=== PATIENT | female | born 1950 | race Caucasian/White ===

== ENCOUNTER 2016-05-29 12:03 | Inpatient (IN) | payer MEDICARE, MEDICAID ==
[~2016-05-29] VITALS: Ht 170.2 cm; Wt 55.8 kg
[~2016-05-29 12:03] MED LIST: ASPIR 8181 MG ORAL; ATORVASTATIN CA40 MG ORAL; BRIMONIDINE TART5 ML BOTH EYES; LAMICTAL25 MG ORAL; OLANZAPINE5 MG ORAL; RENVELA0.8 GM ORAL; RISPERDAL0.5 MG ORAL; RISPERDAL1 MG PO; STOOL SOFTENER100 MG PO; SYNTHROID50 MCG ORAL; VIGAMOX1 DROP LEFT EYE
[2016-05-29 12:55] VITALS: BP 98/53
--- NOTE | 2016-05-29 13:03 | Emergency Room Report ---
History of Present Illness General Chief Complaint: Abnormal Labs Source: Patient (MELA MELGAR) Present Illness HPI The patient is a 66-year-old female with a history of diabetes, end-stage renal disease on dialysis presenting for fatigue which began one month prior and has been getting worse. The patient also admits to a history of anemia and states she does not take any medications for this.The patient also admits to a dark stool which was passed 2 days prior and has since had normal bowel movements. The patient states that her dialysis schedule is Wednesday. Patient last had dialysis 2 days prior to completion and was scheduled for today but states that access did not pick her up.The patient denies any pain at all including chest pain, abdominal pain, myalgia, shortness of breath, numbness or tingling, headache, blurred vision, dizziness, nausea, vomiting, fever, chills (MELA MELGAR.Alexis) Allergies: Coded Allergies: CODEINE (Verified Allergy, Unknown, 10/07/15) ERYTHROMYCIN BASE (Verified Allergy, Unknown, 10/07/15) Patient History Past Medical History: see triage record Pertinent Family History: none Last Menstrual Period: na Reviewed Nursing Documentation: PMH: Agreed, PSxH: Agreed (MELA MELGAR) Nursing Documentation-PMH Past Medical History: No History, Except For Hx Cardiac Problems: Yes - CA Hx Diabetes: Yes Hx Cancer: No Hx Gastrointestinal Problems: No Hx Dialysis: Yes - Tue, Thur, Sat Hx Neurological Problems: No (MELA MELGAR P.AZev) Review of Systems All Other Systems: negative except mentioned in HPI (MELA MELGAR P.AZev) Physical Exam Vital Signs Date Time Temp Pulse Resp B/P Pulse Ox O2 Delivery O2 Flow Rate FiO2 05/29/16 12:50 98.6 70 16 98/53 97 Room Air Sp02 EP Interpretation: reviewed, normal General Appearance: no apparent distress, alert, GCS 15, non-toxic Head: normocephalic, atraumatic Eyes: bilateral eye PERRL, bilateral eye normal inspection ENT: hearing grossly normal, normal pharynx, no angioedema, normal voice Respiratory: chest non-tender, lungs clear, normal breath sounds, speaking full sentences Cardiovascular #1: regular rate, rhythm, no edema Gastrointestinal: normal bowel sounds, non tender, soft, non-distended, no guarding, no rebound Genitourinary: normal inspection, no CVA tenderness Musculoskeletal: back normal, gait/station normal, normal range of motion, non- tender Neurologic: alert, responsive, motor strength/tone normal, sensory intact, speech normal Psychiatric: judgement/insight normal, memory normal, mood/affect normal, no suicidal/homicidal ideation Skin: normal color, no rash, warm/dry, well hydrated Lymphatic: no adenopathy (MELA MELGAR) Medical Decision Making PA Attestation Dr. Walter is my supervising physician. Patient management was discussed with my supervising physician (MELA MELGAR) Medicare Attestation The history of Brianna Ibanez has been reviewed and management options for her have been examined and discussed by Spencer Walter. I have personally examined and interviewed the patient. (SPENCER WALTER M.D.) Diagnostic Impression: Primary Impression: ESRD (end stage renal disease) on dialysis Additional Impression: Anemia ER Course The patient is a 66-year-old female with a history of diabetes, end-stage renal disease on dialysis presenting for fatigue which began one month prior and has been getting worse. DDx: anemia, depression, DKA, ACS PE: Mild hypotension. All other vitals WNL. NAD. RRR. Lungs CTA bilat. Abd: soft, non tender. Normal BS. Skin warm and dry. Labs: Significant anemia. Hyperkalemia. BUN/CR consistent with ESRD Cardiac markers unremarkable CXR and EKG unremarkable. Dr. Walter has spoken with Dr. Renee and the pt will be admitted in stable condition Laboratory Tests Test 05/29/16 12:50 White Blood Count 5.9 K/UL (4.8-10.8) Red Blood Count 2.36 M/UL (4.20-5.40) L Hemoglobin 7.6 G/DL (12.0-16.0) L Hematocrit 22.8 % (37.0-47.0) L Mean Corpuscular Volume 97 FL (80-99) Mean Corpuscular Hemoglobin 32.0 PG (27.0-31.0) H Mean Corpuscular Hemoglobin Concent 33.2 G/DL (32.0-36.0) Red Cell Distribution Width 13.9 % (11.6-14.8) Platelet Count 171 K/UL (150-450) Mean Platelet Volume 5.8 FL (6.5-10.1) L Neutrophils (%) (Auto) % (45.0-75.0) Lymphocytes (%) (Auto) % (20.0-45.0) Monocytes (%) (Auto) % (1.0-10.0) Eosinophils (%) (Auto) % (0.0-3.0) Basophils (%) (Auto) % (0.0-2.0) Differential Total Cells Counted 100 Neutrophils % (Manual) 73 % (45-75) Lymphocytes % (Manual) 14 % (20-45) L Monocytes % (Manual) 6 % (1-10) Eosinophils % (Manual) 1 % (0-3) Basophils % (Manual) 0 % (0-2) Band Neutrophils 6 % (0-8) Platelet Estimate Adequate Platelet Morphology Normal Hypochromasia 1+ Prothrombin Time 10.3 SEC (9.30-11.50) Prothrombin Time INR 1.0 (0.9-1.1) PTT 26 SEC (23-33) Urine Color Pale yellow Urine Appearance Very cloudy Urine pH 7 (4.5-8.0) Urine Specific [place] 1.005 (1.005-1.035) Urine Protein 3+ (NEGATIVE) H Urine Glucose (UA) Negative (NEGATIVE) Urine Ketones Negative (NEGATIVE) Urine Occult Blood 4+ (NEGATIVE) H Urine Nitrite Negative (NEGATIVE) Urine Bilirubin Negative (NEGATIVE) Urine Urobilinogen Normal MG/DL (0.0-1.0) Urine Leukocyte Esterase 3+ (NEGATIVE) H Urine RBC 5-10 /HPF (0 - 2) H Urine WBC 60-80 /HPF (0 - 2) H Urine Squamous Epithelial Cells Few /LPF (NONE/OCC) Urine Bacteria Few /HPF (NONE) Sodium Level 143 mEQ/L (135-145) Potassium Level 5.2 mEQ/L (3.4-4.9) H Chloride Level 99 mEQ/L (98-107) Carbon Dioxide Level 28 mEQ/L (20-30) Anion Gap 16 (5-15) H Blood Urea Nitrogen 52 mg/dL (7-23) H Creatinine 7.1 mg/dL (0.5-0.9) H Estimate Glomerular Filtration Rate 5.8 mL/min (>60) Glucose Level 102 mg/dL (74-106) Calcium Level 9.3 mg/dL (8.6-10.2) Total Bilirubin 0.4 mg/dL (0.0-1.2) Aspartate Amino Transferase (AST) 8 U/L (5-40) Alanine Aminotransferase (ALT) 7 U/L (3-33) Alkaline Phosphatase 48 U/L (35-104) Total Creatine Kinase 29 U/L (26-140) Creatine Kinase MB 1.5 ng/mL (< 3.8) Creatine Kinase MB Relative Index 5.1 Troponin I < 0.30 ng/mL (<=0.30) Total Protein 6.5 g/dL (6.6-8.7) L Albumin 3.7 g/dL (3.5-5.2) Globulin 2.8 g/dL Albumin/Globulin Ratio 1.3 (1.0-2.7) Lab Results Impression Significant anemia. Hyperkalemia. BUN/CR consistent with ESRD (MELA MELGAR) EKG Diagnostic Results Rate: normal - 68 Rhythm: NSR ST Segments: no acute changes ASA given to the pt in ED: No PA Scribe Text EKG was reviewed and read with my supervising physician. No acute ST segment changes are seen. Normal rate and rhythm. No acute changes. (MELA MELGAR) Chest X-Ray Diagnostic Results EP Interpretation: Yes Findings: no consolidation, no effusion, no pneumothorax Number of Views: 1 PA Scribe Text I'm acting as scribe for my supervising physician. My supervising physician's interpretation of the CXR is that it is unremarkable (MELA MELGAR) Last Vital Signs Date Time Temp Pulse Resp B/P Pulse Ox O2 Delivery O2 Flow Rate FiO2 05/29/16 12:50 98.6 70 16 98/53 97 Room Air Status: improved (MELA MELGAR) Disposition: ADMITTED INPATIENT Condition: Stable Referrals: LONI RENEE (PCP) MELA MELGAR May 29, 2016 13:03 SPENCER WALTER M.D. May 31, 2016 14:26
[2016-05-29 13:29] LABS: APPEARANCE,URINE VERY CLOUDY; KETONES,URINE NEGATIVE (NEGATIVE); LEUKOCYTE ESTERASE ,URINE 3+ (NEGATIVE); MEAN CORPUSCULAR HGB CONC 33.2 G/DL (32.0-36.0); MEAN CORPUSCULAR VOLUME 97 FL (80-99); MEAN PLATELET VOLUME 5.8 FL (6.5-10.1); NITRITE,URINE NEGATIVE (NEGATIVE); PH,URINE 7 (4.5-8.0); PLATELET COUNT 171 K/UL (150-450); PROTEIN,URINE 3+ (NEGATIVE); RED BLOOD COUNT 2.36 M/UL (4.20-5.40); RED CELL DISTRIBUTION WIDTH 13.9 % (11.6-14.8); UROBILINOGEN,URINE NORMAL MG/DL (0.0-1.0); WHITE BLOOD COUNT 5.9 K/UL (4.8-10.8)
[2016-05-29 13:36] LABS: WBC,URINE 60-80 /HPF (0 - 2)
[2016-05-29 13:37] LABS: BACTERIA,URINE FEW /HPF; SQUAMOUS EPITHELIAL CELL,UR FEW /LPF (NONE/OCC)
[2016-05-29 13:38] LABS: PROTHROMBIN TIME 10.3 SEC (9.30-11.50)
[2016-05-29 13:44] LABS: ALBUMIN/GLOBULIN RATIO 1.3 (1.0-2.7); CALCIUM 9.3 mg/dL (8.6-10.2); CREATININE 7.1 mg/dL (0.5-0.9); GLOMERULAR FILTRATION RATE 5.8 mL/min (>60); POTASSIUM 5.2 mEQ/L (3.4-4.9); TOTAL PROTEIN 6.5 g/dL (6.6-8.7)
[2016-05-29 13:57] LABS: BAND NEUTROPHILS % (MANUAL) 6 % (0-8); BASOPHILS % (MANUAL) 0 % (0-2); EOSINOPHILS % (MANUAL) 1 % (0-3); HYPOCHROMASIA 1+; LYMPHOCYTES % (MANUAL) 14 % (20-45); NEUTROPHILS % (MANUAL) 73 % (45-75); PLATELET ESTIMATE ADEQUATE; PLATELET MORPHOLOGY NORMAL; TOTAL CELLS COUNTED 100
[2016-05-29] MEDS ORDERED: cefTRIAXone 1 GM in NS 55 ML IVPB ONE (14:45)
--- NOTE | 2016-05-29 14:48 | Diagnostic Imaging Report ---
Indications: Shortness of breath Technique: Portable AP chest Findings: Comparison: 10/07/2015 Cardiac silhouette remains normal in size. Pulmonary vasculature remains within normal limits. Lungs and pleura remain clear. Mild additional thoracic aorta, left upper extremity soft tissue surgical clips again noted.. IMPRESSION: No evidence of acute disease, unchanged Stable chronic changes as described
[2016-05-29 14:55] LABS: TROPONIN I < 0.30 ng/mL (<=0.30)
[2016-05-29 15:01] VITALS: BP 99/54
[2016-05-29 15:04] LABS: CKMB 1.5 ng/mL (< 3.8)
[2016-05-29 15:44] VITALS: BP 102/54
[2016-05-29] MEDS ORDERED: LORazepam Inj 2mg/ml 1ml IV PRN (15:45)
[2016-05-29] MEDS ORDERED: Zolpidem 5mg tab ORAL PRN (15:45)
[2016-05-29] MEDS ORDERED: Mylanta II UD 30ml ORAL PRN (15:45)
[2016-05-29] MEDS ORDERED: Miralax 17gm pkt ORAL PRN (15:45)
[2016-05-29 16:31] VITALS: BP 94/60
[2016-05-29 17:30] VITALS: BP 108/64
[2016-05-29] MEDS: Docusate 100mg cap ORAL SCH (18:00)
[2016-05-29] MEDS: Renvela 800mg Pkt ORAL SCH (18:00)
--- NOTE | 2016-05-29 18:41 | Cardiology Progress Note ---
Assessment/Plan Assessment/Plan The patient is seen and examined, full consult note is dictated. Objective Last 24 Hour Vital Signs Date Time Temp Pulse Resp B/P Pulse Ox O2 Delivery O2 Flow Rate FiO2 05/29/16 17:30 98.1 65 19 108/64 94 Room Air 05/29/16 17:07 98.4 70 15 102/57 96 Room Air 05/29/16 16:55 98.2 70 17 05/29/16 16:40 98.4 70 15 05/29/16 16:31 98.4 70 19 94/60 96 Room Air 05/29/16 15:44 98.3 74 14 102/54 96 Room Air 05/29/16 15:01 67 16 99/54 97 Room Air 05/29/16 12:55 16 98/53 97 Room Air 05/29/16 12:50 98.6 70 16 98/53 97 Room Air Laboratory Tests Test 05/29/16 12:50 White Blood Count 5.9 K/UL (4.8-10.8) Red Blood Count 2.36 M/UL (4.20-5.40) L Hemoglobin 7.6 G/DL (12.0-16.0) L Hematocrit 22.8 % (37.0-47.0) L Mean Corpuscular Volume 97 FL (80-99) Mean Corpuscular Hemoglobin 32.0 PG (27.0-31.0) H Mean Corpuscular Hemoglobin Concent 33.2 G/DL (32.0-36.0) Red Cell Distribution Width 13.9 % (11.6-14.8) Platelet Count 171 K/UL (150-450) Mean Platelet Volume 5.8 FL (6.5-10.1) L Neutrophils (%) (Auto) % (45.0-75.0) Lymphocytes (%) (Auto) % (20.0-45.0) Monocytes (%) (Auto) % (1.0-10.0) Eosinophils (%) (Auto) % (0.0-3.0) Basophils (%) (Auto) % (0.0-2.0) Differential Total Cells Counted 100 Neutrophils % (Manual) 73 % (45-75) Lymphocytes % (Manual) 14 % (20-45) L Monocytes % (Manual) 6 % (1-10) Eosinophils % (Manual) 1 % (0-3) Basophils % (Manual) 0 % (0-2) Band Neutrophils 6 % (0-8) Platelet Estimate Adequate Platelet Morphology Normal Hypochromasia 1+ Prothrombin Time 10.3 SEC (9.30-11.50) Prothromb Time International Ratio 1.0 (0.9-1.1) Activated Partial Thromboplast Time 26 SEC (23-33) Urine Color Pale yellow Urine Appearance Very cloudy Urine pH 7 (4.5-8.0) Urine Specific [place] 1.005 (1.005-1.035) Urine Protein 3+ (NEGATIVE) H Urine Glucose (UA) Negative (NEGATIVE) Urine Ketones Negative (NEGATIVE) Urine Occult Blood 4+ (NEGATIVE) H Urine Nitrite Negative (NEGATIVE) Urine Bilirubin Negative (NEGATIVE) Urine Urobilinogen Normal MG/DL (0.0-1.0) Urine Leukocyte Esterase 3+ (NEGATIVE) H Urine RBC 5-10 /HPF (0 - 2) H Urine WBC 60-80 /HPF (0 - 2) H Urine Squamous Epithelial Cells Few /LPF (NONE/OCC) Urine Bacteria Few /HPF (NONE) Sodium Level 143 mEQ/L (135-145) Potassium Level 5.2 mEQ/L (3.4-4.9) H Chloride Level 99 mEQ/L (98-107) Carbon Dioxide Level 28 mEQ/L (20-30) Anion Gap 16 (5-15) H Blood Urea Nitrogen 52 mg/dL (7-23) H Creatinine 7.1 mg/dL (0.5-0.9) H Estimat Glomerular Filtration Rate 5.8 mL/min (>60) Glucose Level 102 mg/dL (74-106) Calcium Level 9.3 mg/dL (8.6-10.2) Total Bilirubin 0.4 mg/dL (0.0-1.2) Aspartate Amino Transf (AST/SGOT) 8 U/L (5-40) Alanine Aminotransferase (ALT/SGPT) 7 U/L (3-33) Alkaline Phosphatase 48 U/L (35-104) Total Creatine Kinase 29 U/L (26-140) Creatine Kinase MB 1.5 ng/mL (< 3.8) Creatine Kinase MB Relative Index 5.1 Troponin I < 0.30 ng/mL (<=0.30) Total Protein 6.5 g/dL (6.6-8.7) L Albumin 3.7 g/dL (3.5-5.2) Globulin 2.8 g/dL Albumin/Globulin Ratio 1.3 (1.0-2.7) LEO JUAREZ May 29, 2016 18:41
[2016-05-29 20:00] VITALS: BP 98/54
[2016-05-29] MEDS: OLANZapine 2.5mg tab ORAL SCH ×2 (21:00→23:18)
[2016-05-29 21:23] LABS: PATH BLOOD SMEAR/OMC SENT TO PATHOLOGIST
[2016-05-29] MEDS: Brimonidine 0.2% Opth Sol BOTH EYES SCH (23:18)
[2016-05-30] VITALS: BP 98/53
--- NOTE | 2016-05-30 00:37 | Consultation ---
DATE OF CONSULTATION: 05/29/2016 CARDIOLOGY CONSULTATION CONSULTING PHYSICIAN: Jose Ngo M.D. REFERRING PHYSICIAN: Gwen Mccray M.D. REASON FOR CONSULTATION: Management of low blood pressure or hypotension. HISTORY OF PRESENT ILLNESS: The patient is a very unfortunate 66-year-old female, who presents to the hospital with fatigue that has been going on for quite some time. She states she had missed her hemodialysis today and was quite anemic as she had passed some dark stools and was worried about gastrointestinal bleed. The patient is seen in Cardiology consultation as her blood pressure was low at 98/53 in the emergency department at the request of Dr. Mccray. She currently denies any chest pain, however, she claims that she gets short of breath with long distance walking. PAST MEDICAL HISTORY: Including diabetes mellitus, end-stage renal disease, on hemodialysis Mondays, Wednesdays, and Fridays, history of anemia, history of hypothyroidism, and history of hyperlipidemia. PAST SURGICAL HISTORY: AV shunt placement and PermCath catheter in the past. ALLERGIES: To codeine and erythromycin. HABITS: Denies any tobacco, alcohol, or illicit drug use. FAMILY HISTORY: No premature coronary artery disease in the first-degree relatives. REVIEW OF SYSTEMS: Constitutional: Complained of generalized weakness, but no fever, chills, or night sweats. HEENT: Denies any headache, diplopia, or blurred vision. Cardiovascular: Denies any chest pain, however, she has been complaining about dyspnea on exertion with long distance walking. Denies any PND, orthopnea, or leg swelling. Pulmonary: Denies any cough, hemoptysis, or wheezing. Gastrointestinal: Complained of dark stool, but no visible fresh blood per rectum. Denies any nausea or vomiting. Appetite is also low. Genitourinary: On hemodialysis on Wednesday, Wednesdays, and Fridays. Neurology: Denies any motor dysfunction, sensory deficit, or altered speech. PHYSICAL EXAMINATION: VITAL SIGNS: Blood pressure is 98/53, respirations 16, pulse of 70, temperature 98.6 degrees Fahrenheit, and O2 saturation 97% on room air. GENERAL: The patient is a very unfortunate 66-year-old female, in no apparent respiratory distress, alert, and oriented x4. HEENT: Atraumatic and normocephalic. Anicteric. Pupils are equal, round, and reactive to light and accommodation. Extraocular muscles intact. NECK: JVP less than 5 cm. No carotid bruits. Carotid upstroke is 2+ bilaterally. CVS: Normal S1 and S2. Regular rate and rhythm. No murmurs, gallops, or rubs. PMI is at fourth intercostal space in midclavicular line. LUNGS: Clear to auscultation bilaterally. ABDOMEN: Soft, nontender, and nondistended. No hepatosplenomegaly. Positive bowel sounds. EXTREMITIES: No evidence of edema, clubbing, or cyanosis. LABORATORY FINDINGS: WBC is 5.9, hemoglobin of 7.6, hematocrit 32.8, and platelet count is 171,000. Sodium was 143, potassium is 5.2, chloride 99, bicarbonate 28, BUN of 52, creatinine 7.1, glucose is 102, and calcium is 9.3. Troponin I is less than 0.3. INR is 1.0. A 12-lead electrocardiogram shows sinus rhythm at a rate of 68 with normal axis. Of note, QT prolongation, no acute ischemic changes. Chest x-ray showed normal cardiac silhouette with no evidence of acute pulmonary edema. ASSESSMENT AND PLAN: The patient is a very unfortunate 66-year-old female, seen in Cardiology consultation at the request of Dr. Renee. 1. Hypotension. This could be secondary to hemodialysis, although somewhat concerned about the dark stool, wanted to rule out of melanotic stool. The stool OB is recommended. The patient has been on aspirin therapy, which has been placed on hold. We will place a hold on the patient's blood pressure medication at this time. We may resume once the blood pressure is more stable. 2. End-stage renal disease. She missed hemodialysis today. 3. Hyperkalemia due to missed dialysis. 4. Anemia. The patient may benefit from blood transfusion as the hemoglobin is less than 8. 5. Further therapeutic and diagnostic decision will be based on the patient's clinical course in the next few days. I would like to thank, Dr. Renee, for allowing me to participate in the care of this patient. Jose Ngo M.D. DR: KIESHA JOB#: [id number] CC:
[2016-05-30 02:07] VITALS: BP 92/52
[2016-05-30 05:00] VITALS: BP 101/53
[2016-05-30 06:36] LABS: MEAN CORPUSCULAR HEMOGLOBIN 32.9 PG (27.0-31.0); MEAN CORPUSCULAR VOLUME 94 FL (80-99); MEAN PLATELET VOLUME 5.9 FL (6.5-10.1); PLATELET COUNT 184 K/UL (150-450); RED BLOOD COUNT 3.08 M/UL (4.20-5.40); RED CELL DISTRIBUTION WIDTH 13.7 % (11.6-14.8); WHITE BLOOD COUNT 7.1 K/UL (4.8-10.8)
[2016-05-30 06:59] LABS: ALBUMIN/GLOBULIN RATIO 1.2 (1.0-2.7); CALCIUM 9.3 mg/dL (8.6-10.2); CREATININE 4.7 mg/dL (0.5-0.9); GLOMERULAR FILTRATION RATE 9.3 mL/min (>60); LACTATE DEHYDROGENASE 146 U/L (135-230); POTASSIUM 4.3 mEQ/L (3.4-4.9); TOTAL PROTEIN 6.8 g/dL (6.6-8.7)
[2016-05-30 07:06] LABS: PROTHROMBIN TIME 10.4 SEC (9.30-11.50)
[2016-05-30 07:10] LABS: THYROID STIMULATING HORMONE 0.96 uIU/mL (0.300-4.500)
[2016-05-30 07:29] LABS: HEMOLYSIS 6; IRON 38 ug/dL (37-145); TOTAL IRON BINDING CAPACITY 143 ug/dL (250-400)
--- NOTE | 2016-05-30 08:42 | History and Physical ---
History of Present Illness General Date patient seen: May 30, 2016 Time patient seen: 10:00 Reason for Hospitalization: acute anemia Present Illness HPI 66-year-old female with a history of diabetes, end-stage renal disease on dialysis presented to ED with complaints of fatigue for one month, which is getting progressively worse. The patient admits to a history of anemia, not taking any medications for it. The patient admits to a dark stool 2 days prior , since that had normal bowel movements. The patient states that her dialysis schedule is Wednesday. The patient denies chest pain, abdominal pain, myalgia, shortness of breath, numbness or tingling, headache, blurred vision, dizziness, nausea, vomiting, fever, chills Workup in ED revealed acute aneia with HH 7.6/22.8 and patietn admitted to [facility] floor for blood tranfusion and HD Allergies: Coded Allergies: CODEINE (Verified Allergy, Unknown, 10/07/15) ERYTHROMYCIN BASE (Verified Allergy, Unknown, 10/07/15) Medication History Scheduled Aspirin* (Aspir 81*), 81 MG ORAL DAILY, (Reported) Atorvastatin Calcium* (Atorvastatin Calcium*), 40 MG ORAL BEDTIME, (Reported) Brimonidine Tartrate* (Alphagan*), 1 DROP BOTH EYES BID, (Reported) Docusate Sodium (Stool Softener), 100 MG PO BID, (Reported) Lamotrigine* (Lamictal*), 25 MG ORAL BID, (Reported) Levothyroxine Sodium (Synthroid), 50 MCG ORAL DAILY, (Reported) Moxifloxacin HCl (Vigamox), 1 DROP LEFT EYE FOUR TIMES A DAY, (Reported) Olanzapine (Olanzapine), 5 MG ORAL BEDTIME Risperidone* (Risperdal*), 1 MG PO HS, (Reported) Risperidone* (Risperdal*), 0.5 MG ORAL AM, (Reported) Sevelamer Carbonate* (Renvela*), 800 MG ORAL THREE TIMES A DAY, (Reported) Patient History History Provided By: Patient Healthcare decision maker Resuscitation status Full Code Advanced Directive on File No Past Medical/Surgical History Past Medical/Surgical History: (1) Anemia (2) ESRD (end stage renal disease) on dialysis (3) Diabetic polyneuropathies (4) Hypothyroidism (5) Myocardial infarct, old (6) Diabetes Review of Systems Constitutional: Reports: malaise, other - fatigue Eye: Reports: no symptoms ENT: Reports: no symptoms Respiratory: Reports: other - hx of COPD Cardiovascular: Reports: other - hx of CA Gastrointestinal: Reports: melena - x1 Genitourinary: Reports: other - ESRD, on HD Musculoskeletal: Reports: no symptoms Skin: Reports: no symptoms Psychiatric: Reports: no symptoms Neurological: Reports: other - diabetic neuropathy Endocrine: Reports: other - DM, hypothyroidism Hematologic/Lymphatic: Reports: anemia, see HPI Physical Exam General Appearance: no apparent distress - thin female, forgetful Lines, tubes and drains: peripheral HEENT: normocephalic, atraumatic, anicteric, mucous membranes moist, PERRL, EOMI, supple, no JVD Neck: non-tender, normal alignment, supple Respiratory/Chest: lungs clear, normal breath sounds, no accessory muscle use Cardiovascular/Chest: normal peripheral pulses, normal rate, no JVD, other - LUE AV shunt, intact Abdomen: normal bowel sounds, non tender, soft Extremities: normal range of motion, non-tender, no calf tenderness, normal capillary refill Neurologic: alert, responsive - forgetful Musculoskeletal: normal muscle bulk Last 24 Hour Vital Signs Date Time Temp Pulse Resp B/P Pulse Ox O2 Delivery O2 Flow Rate FiO2 05/30/16 05:00 98.6 70 20 101/53 93 Room Air 05/30/16 02:07 96.5 69 20 92/52 93 05/30/16 00:00 97.9 75 19 98/53 93 Room Air 05/29/16 20:30 Room Air 05/29/16 20:00 97.3 71 18 98/54 99 Room Air 05/29/16 17:30 98.1 65 19 108/64 94 Room Air 05/29/16 17:20 Room Air 05/29/16 17:07 98.4 70 15 102/57 96 Room Air 05/29/16 16:55 98.2 70 17 05/29/16 16:40 98.4 70 15 05/29/16 16:31 98.4 70 19 94/60 96 Room Air 05/29/16 15:44 98.3 74 14 102/54 96 Room Air 05/29/16 15:01 67 16 99/54 97 Room Air 05/29/16 12:55 16 98/53 97 Room Air 05/29/16 12:50 98.6 70 16 98/53 97 Room Air Intake and Output 05/29/16 05/30/16 18:59 06:59 Intake Total 120 ml 250 ml Output Total 2105 ml Balance 120 ml -1855 ml Intake Oral 120 ml Blood Product 250 ml Output Hemodialysis UF 2105 ml # Voids 1 2 Laboratory Tests Test 05/29/16 12:50 05/30/16 06:05 White Blood Count 5.9 K/UL (4.8-10.8) 7.1 K/UL (4.8-10.8) Red Blood Count 2.36 M/UL (4.20-5.40) L 3.08 M/UL (4.20-5.40) L Hemoglobin 7.6 G/DL (12.0-16.0) L 10.1 G/DL (12.0-16.0) #L Hematocrit 22.8 % (37.0-47.0) L 29.0 % (37.0-47.0) L Mean Corpuscular Volume 97 FL (80-99) 94 FL (80-99) Mean Corpuscular Hemoglobin 32.0 PG (27.0-31.0) H 32.9 PG (27.0-31.0) H Mean Corpuscular Hemoglobin Concent 33.2 G/DL (32.0-36.0) 35.0 G/DL (32.0-36.0) Red Cell Distribution Width 13.9 % (11.6-14.8) 13.7 % (11.6-14.8) Platelet Count 171 K/UL (150-450) 184 K/UL (150-450) Mean Platelet Volume 5.8 FL (6.5-10.1) L 5.9 FL (6.5-10.1) L Neutrophils (%) (Auto) % (45.0-75.0) % (45.0-75.0) Lymphocytes (%) (Auto) % (20.0-45.0) % (20.0-45.0) Monocytes (%) (Auto) % (1.0-10.0) % (1.0-10.0) Eosinophils (%) (Auto) % (0.0-3.0) % (0.0-3.0) Basophils (%) (Auto) % (0.0-2.0) % (0.0-2.0) Differential Total Cells Counted 100 Neutrophils % (Manual) 73 % (45-75) Lymphocytes % (Manual) 14 % (20-45) L Monocytes % (Manual) 6 % (1-10) Eosinophils % (Manual) 1 % (0-3) Basophils % (Manual) 0 % (0-2) Band Neutrophils 6 % (0-8) Platelet Estimate Adequate Platelet Morphology Normal Hypochromasia 1+ Prothrombin Time 10.3 SEC (9.30-11.50) 10.4 SEC (9.30-11.50) Prothromb Time International Ratio 1.0 (0.9-1.1) 1.0 (0.9-1.1) Activated Partial Thromboplast Time 26 SEC (23-33) 27 SEC (23-33) Urine Color Pale yellow Urine Appearance Very cloudy Urine pH 7 (4.5-8.0) Urine Specific [place] 1.005 (1.005-1.035) Urine Protein 3+ (NEGATIVE) H Urine Glucose (UA) Negative (NEGATIVE) Urine Ketones Negative (NEGATIVE) Urine Occult Blood 4+ (NEGATIVE) H Urine Nitrite Negative (NEGATIVE) Urine Bilirubin Negative (NEGATIVE) Urine Urobilinogen Normal MG/DL (0.0-1.0) Urine Leukocyte Esterase 3+ (NEGATIVE) H Urine RBC 5-10 /HPF (0 - 2) H Urine WBC 60-80 /HPF (0 - 2) H Urine Squamous Epithelial Cells Few /LPF (NONE/OCC) Urine Bacteria Few /HPF (NONE) Sodium Level 143 mEQ/L (135-145) 139 mEQ/L (135-145) Potassium Level 5.2 mEQ/L (3.4-4.9) H 4.3 mEQ/L (3.4-4.9) Chloride Level 99 mEQ/L (98-107) 94 mEQ/L (98-107) L Carbon Dioxide Level 28 mEQ/L (20-30) 31 mEQ/L (20-30) H Anion Gap 16 (5-15) H 14 (5-15) Blood Urea Nitrogen 52 mg/dL (7-23) H 32 mg/dL (7-23) H Creatinine 7.1 mg/dL (0.5-0.9) H 4.7 mg/dL (0.5-0.9) H Estimat Glomerular Filtration Rate 5.8 mL/min (>60) 9.3 mL/min (>60) Glucose Level 102 mg/dL (74-106) 100 mg/dL (74-106) Calcium Level 9.3 mg/dL (8.6-10.2) 9.3 mg/dL (8.6-10.2) Total Bilirubin 0.4 mg/dL (0.0-1.2) 0.6 mg/dL (0.0-1.2) Aspartate Amino Transf (AST/SGOT) 8 U/L (5-40) 8 U/L (5-40) Alanine Aminotransferase (ALT/SGPT) 7 U/L (3-33) 7 U/L (3-33) Alkaline Phosphatase 48 U/L (35-104) 50 U/L (35-104) Total Creatine Kinase 29 U/L (26-140) Creatine Kinase MB 1.5 ng/mL (< 3.8) Creatine Kinase MB Relative Index 5.1 Troponin I < 0.30 ng/mL (<=0.30) Total Protein 6.5 g/dL (6.6-8.7) L 6.8 g/dL (6.6-8.7) Albumin 3.7 g/dL (3.5-5.2) 3.8 g/dL (3.5-5.2) Globulin 2.8 g/dL 3.0 g/dL Albumin/Globulin Ratio 1.3 (1.0-2.7) 1.2 (1.0-2.7) Erythrocyte Sedimentation Rate 121 MM/HR (0-30) H Reticulocyte Count Pending Iron Level 38 ug/dL (37-145) Total Iron Binding Capacity 143 ug/dL (250-400) L Percent Iron Saturation 27 % (15-50) Unsaturated Iron Binding 105 ug/dL (112-346) L Lactate Dehydrogenase 146 U/L (135-230) Carcinoembryonic Antigen 2.5 ng/mL Vitamin B12 Level 522 pg/mL (211-946) Folate Pending Thyroid Stimulating Hormone (TSH) 0.960 uIU/mL (0.300-4.500) Height (Feet): 5 Height (Inches): 7.00 Weight (Pounds): 123 Medications Current Medications Medications (Trade) Dose Ordered Sig/Basil Route PRN Reason Start Time Stop Time Status Last Admin Dose Admin Acetaminophen (Tylenol) 650 mg Q4H PRN ORAL fever 05/29/16 15:45 06/28/16 15:44 Al Hydroxide/Mg Hydroxide (Mylanta II) 30 ml Q6H PRN ORAL dyspepsia 05/29/16 15:45 06/28/16 15:44 Atorvastatin Calcium (Lipitor) 40 mg BEDTIME ORAL 05/29/16 21:00 06/28/16 20:59 05/29/16 23:18 Brimonidine Tartrate (Alphagan) 1 drop BID BOTH EYES 05/29/16 18:00 06/28/16 17:59 05/29/16 23:18 Dextrose (Dextrose 50%) STAT PRN IV Hypoglycemia 05/29/16 15:45 06/28/16 15:44 Docusate Sodium (Colace) 100 mg BID ORAL 05/29/16 18:00 06/28/16 17:59 Lamotrigine (LaMICtal) 25 mg BID ORAL 05/29/16 18:00 06/28/16 17:59 Levothyroxine Sodium (Synthroid) 50 mcg ACBREAKFAST ORAL 05/30/16 06:30 06/29/16 06:29 05/30/16 07:12 Lorazepam (Ativan 2mg/ml 1ml) 0.5 mg Q4H PRN IV For Anxiety 05/29/16 15:45 06/05/16 15:44 Olanzapine (ZyPREXA) 5 mg BEDTIME ORAL 05/29/16 21:00 06/28/16 20:59 Ondansetron HCl (Zofran) 4 mg Q6H PRN IVP Nausea & Vomiting 05/29/16 15:45 06/28/16 15:44 Polyethylene Glycol (Miralax) 17 gm HSPRN PRN ORAL Constipation 05/29/16 15:45 06/28/16 15:44 Risperidone (RisperDAL) 1 mg DAILY ORAL 05/30/16 09:00 06/29/16 08:59 Sevelamer Carbonate (Renvela) 800 mg THREE TIMES A DAY ORAL 05/29/16 18:00 2/19/17 17:59 Zolpidem Tartrate (Ambien) 5 mg HSPRN PRN ORAL Insomnia 05/29/16 15:45 06/28/16 15:44 Assessment/Plan Assessment/Plan ASSESSMENT acute anemia s/p 2 u PRBC GI bleeding ESRD, on HD UTI hypotension hx of CA DM hypothyroidism PLAN OF CARE [facility] floor empiric abx, fup with urine cx+GNR s/p 2 u PRBC, HH stable check stool OB monitor HH , anemia workup iron panel stable acute anemia likely combination of anemia of chronic renal disease and superimposed anemia 2 to GI bleeding HD as per nephro, monitor renal parameters, lytes GI eval cardio eval appreciated, hold anti HTN medications for now, closely monitor BP venous Duplex BLE TSH stable, continue current Levothyroxine dose BS management with SS of insulin case discussed and evaluated by supervising physician Rober Latham),Susi MAHAN May 30, 2016 08:42
[2016-05-30] MEDS: Renvela 800mg Pkt ORAL SCH ×4 (08:57→17:42)
[2016-05-30] MEDS: Brimonidine 0.2% Opth Sol BOTH EYES SCH ×2 (08:57→17:42)
[2016-05-30] MEDS: Docusate 100mg cap ORAL SCH ×2 (08:57→17:40)
[2016-05-30 10:43] LABS: RETICULOCYTE COUNT 0.5 % (0.0-2.0)
--- NOTE | 2016-05-30 12:18 | General Progress Note ---
Progress Note Progress Note patient seen and examined full note will be dictated JOSE LUIS WYNN May 30, 2016 12:18
[2016-05-30] MEDS: cefTRIAXone 1 GM in D5W 55 ML IVPB SCH (15:06)
[2016-05-30 15:57] VITALS: BP 92/55
[2016-05-30 20:13] VITALS: BP 84/48
[2016-05-30] MEDS: OLANZapine 2.5mg tab ORAL SCH (20:27)
--- NOTE | 2016-05-30 21:43 | Cardiology Progress Note ---
Assessment/Plan Assessment/Plan 1. Hypotension, persistent, ?hypovolemia due to excessive fluid withdrawal during HD, blood pressure meds on hold, continue observe hemodynamics. 2. End-stage renal disease. 3. Hyperkalemia resolved was due to missed dialysis. 4. Anemia, improved after blood transfusion. Subjective Subjective No cardiac events. Denies CP. Objective Last 24 Hour Vital Signs Date Time Temp Pulse Resp B/P Pulse Ox O2 Delivery O2 Flow Rate FiO2 05/30/16 20:13 97.2 64 14 84/48 93 Room Air 05/30/16 15:57 97.9 60 14 92/55 94 Room Air 05/30/16 05:00 98.6 70 20 101/53 93 Room Air 05/30/16 02:07 96.5 69 20 92/52 93 05/30/16 00:00 97.9 75 19 98/53 93 Room Air Intake and Output 05/29/16 05/30/16 19:00 07:00 Intake Total 120 ml 250 ml Output Total 2105 ml Balance 120 ml -1855 ml Intake Oral 120 ml Blood Product 250 ml Output Hemodialysis UF 2105 ml # Voids 1 2 Laboratory Tests Test 05/30/16 06:05 White Blood Count 7.1 K/UL (4.8-10.8) Red Blood Count 3.08 M/UL (4.20-5.40) L Hemoglobin 10.1 G/DL (12.0-16.0) #L Hematocrit 29.0 % (37.0-47.0) L Mean Corpuscular Volume 94 FL (80-99) Mean Corpuscular Hemoglobin 32.9 PG (27.0-31.0) H Mean Corpuscular Hemoglobin Concent 35.0 G/DL (32.0-36.0) Red Cell Distribution Width 13.7 % (11.6-14.8) Platelet Count 184 K/UL (150-450) Mean Platelet Volume 5.9 FL (6.5-10.1) L Neutrophils (%) (Auto) % (45.0-75.0) Lymphocytes (%) (Auto) % (20.0-45.0) Monocytes (%) (Auto) % (1.0-10.0) Eosinophils (%) (Auto) % (0.0-3.0) Basophils (%) (Auto) % (0.0-2.0) Erythrocyte Sedimentation Rate 121 MM/HR (0-30) H Reticulocyte Count 0.5 % (0.0-2.0) Prothrombin Time 10.4 SEC (9.30-11.50) Prothromb Time International Ratio 1.0 (0.9-1.1) Activated Partial Thromboplast Time 27 SEC (23-33) Sodium Level 139 mEQ/L (135-145) Potassium Level 4.3 mEQ/L (3.4-4.9) Chloride Level 94 mEQ/L (98-107) L Carbon Dioxide Level 31 mEQ/L (20-30) H Anion Gap 14 (5-15) Blood Urea Nitrogen 32 mg/dL (7-23) H Creatinine 4.7 mg/dL (0.5-0.9) H Estimat Glomerular Filtration Rate 9.3 mL/min (>60) Glucose Level 100 mg/dL (74-106) Calcium Level 9.3 mg/dL (8.6-10.2) Iron Level 38 ug/dL (37-145) Total Iron Binding Capacity 143 ug/dL (250-400) L Percent Iron Saturation 27 % (15-50) Unsaturated Iron Binding 105 ug/dL (112-346) L Total Bilirubin 0.6 mg/dL (0.0-1.2) Aspartate Amino Transf (AST/SGOT) 8 U/L (5-40) Alanine Aminotransferase (ALT/SGPT) 7 U/L (3-33) Alkaline Phosphatase 50 U/L (35-104) Lactate Dehydrogenase 146 U/L (135-230) Total Protein 6.8 g/dL (6.6-8.7) Albumin 3.8 g/dL (3.5-5.2) Globulin 3.0 g/dL Albumin/Globulin Ratio 1.2 (1.0-2.7) Carcinoembryonic Antigen 2.5 ng/mL Vitamin B12 Level 522 pg/mL (211-946) Folate Pending Thyroid Stimulating Hormone (TSH) 0.960 uIU/mL (0.300-4.500) Microbiology Date/Time Source Procedure Growth Status 05/29/16 12:50 Urine,Clean Catch Urine Culture - Preliminary Gram Negative Guillermo Resulted Objective GENERAL: The patient is a very unfortunate 66-year-old female, in no apparent respiratory distress, alert, and oriented x4. HEENT: Atraumatic and normocephalic. Anicteric. Pupils are equal, round, and reactive to light and accommodation. Extraocular muscles intact. NECK: JVP less than 5 cm. No carotid bruits. Carotid upstroke is 2+ bilaterally. CVS: Normal S1 and S2. Regular rate and rhythm. No murmurs, gallops, or rubs. PMI is at fourth intercostal space in midclavicular line. LUNGS: Clear to auscultation bilaterally. ABDOMEN: Soft, nontender, and nondistended. No hepatosplenomegaly. Positive bowel sounds. EXTREMITIES: No evidence of edema, clubbing, or cyanosis. LEO JUAREZ May 30, 2016 21:43
--- NOTE | 2016-05-30 23:27 | Consultation ---
DATE OF CONSULTATION: 05/30/2016 CHIEF COMPLAINT: overnight. The patient looks very tired. No complaint of abdominal pain. Last bowel movement was yesterday. HISTORY OF PRESENT ILLNESS: The patient is a 66-year-old female with past medical history of end-stage renal disease, on dialysis for last 4 years, history of chronic anemia, was admitted to the hospital with possible gastrointestinal bleeding and weakness. The patient denies any GI bleeding since yesterday. She said last bowel movement was yesterday. According to her, she had a colonoscopy, but she cannot exactly tell me when and an what was the finding, but then I offered a colonoscopy at admission she states that she does not want it. PAST MEDICAL HISTORY: 1. History of end-stage renal disease on hemodialysis. 2. Anemia. 3. Diabetes. 4. Hypothyroidism. 5. Hyperlipidemia. PAST SURGICAL HISTORY: History of Perma-Cath placement for dialysis. ALLERGIES: To codeine and erythromycin. MEDICATIONS: Please see medication reconciliation list. FAMILY HISTORY: Noncontributory. SOCIAL HISTORY: Denies any tobacco, alcohol, or drug abuse. REVIEW OF SYSTEMS: A 10-point review of systems was performed and pertinent positives in history of present illness. PHYSICAL EXAMINATION: GENERAL: This is a well-developed female, in no acute distress. VITAL SIGNS: Temperature 98.6 degrees, pulse 76, respirations 20, and blood pressure is 101/50. HEENT: Normocephalic and atraumatic. Pale conjunctivae. NECK: Supple. No adenopathy. CARDIOVASCULAR: Regular rhythm. Plus S1 and S2. No obvious murmur. LUNGS: Decreased breath sounds bilaterally on supine exam. ABDOMEN: Soft and nontender. No rebound. No guarding. EXTREMITIES: No cyanosis. No clubbing. No edema. LABORATORY DATA: White count was 5.9 on admission, hemoglobin 7.6, and platelet count is 171,000. Of note in 10/2015, the patient also had hemoglobin of 7.3. ASSESSMENT AND PLAN: This is a 66-year-old female with profound normocytic anemia possibly secondary to renal disease and questionable gastrointestinal bleeding. The patient is refusing any GI procedure in this admission. She was then diffusely to give us a stool for occult blood. The patient got a transfusion hemoglobin up to 10. Today, we will monitor H and H. Consider transfusing if needed again. Consider collecting stool OB if patient cooperates and based on that, we will decide if the patient needs any gastrointestinal procedures. I want to thank, Dr. Renee, for this kind referral. Grant Sorto M.D. DR: TODD JOB#: [id number] CC: Sarah Renee M.D.; Fax#: [phone]
[2016-05-31] VITALS: BP 104/64
[2016-05-31 04:00] VITALS: BP 113/66
[2016-05-31 06:32] LABS: BASOPHILS % (AUTO) 1.5 % (0.0-2.0); EOSINOPHILS % (AUTO) 0.8 % (0.0-3.0); LYMPHOCYTES % (AUTO) 12.6 % (20.0-45.0); MEAN CORPUSCULAR HGB CONC 33.9 G/DL (32.0-36.0); MEAN CORPUSCULAR VOLUME 97 FL (80-99); MEAN PLATELET VOLUME 5.6 FL (6.5-10.1); MONOCYTES % (AUTO) 8.2 % (1.0-10.0); NEUTROPHILS % (AUTO) 76.9 % (45.0-75.0); PLATELET COUNT 162 K/UL (150-450); RED BLOOD COUNT 3.06 M/UL (4.20-5.40); RED CELL DISTRIBUTION WIDTH 13.8 % (11.6-14.8); WHITE BLOOD COUNT 4.4 K/UL (4.8-10.8)
[2016-05-31 06:48] LABS: CALCIUM 9.3 mg/dL (8.6-10.2); CREATININE 5.8 mg/dL (0.5-0.9); GLOMERULAR FILTRATION RATE 7.3 mL/min (>60); POTASSIUM 4.3 mEQ/L (3.4-4.9)
[2016-05-31 08:00] VITALS: BP 94/62
[2016-05-31] MEDS: Docusate 100mg cap ORAL SCH ×2 (09:00→17:37)
--- NOTE | 2016-05-31 09:10 | General Progress Note ---
Assessment/Plan Problem List: (1) Anemia ICD Codes: D64.9 - Anemia, unspecified SNOMED: 901418948 (2) ESRD (end stage renal disease) on dialysis ICD Codes: N18.6 - End stage renal disease; Z99.2 - Dependence on renal dialysis SNOMED: 125526995 (3) HTN (hypertension) ICD Codes: I10 - Essential (primary) hypertension SNOMED: 00416694 (4) Hypothyroidism ICD Codes: E03.9 - Hypothyroidism, unspecified SNOMED: 24839861 (5) Diabetic polyneuropathies ICD Codes: E11.42 - Type 2 diabetes mellitus with diabetic polyneuropathy SNOMED: 03461128 Assessment/Plan refusing GI procedures fu H&H fu stool ob fu nephrology Subjective ROS Limited/Unobtainable: Yes Allergies: Coded Allergies: CODEINE (Verified Allergy, Unknown, 10/07/15) ERYTHROMYCIN BASE (Verified Allergy, Unknown, 10/07/15) Subjective no event Objective Last 24 Hour Vital Signs Date Time Temp Pulse Resp B/P Pulse Ox O2 Delivery O2 Flow Rate FiO2 05/31/16 04:00 97.3 72 19 113/66 96 Room Air 05/31/16 00:00 97.7 69 18 104/64 95 Room Air 05/30/16 20:13 97.2 64 14 84/48 93 Room Air 05/30/16 15:57 97.9 60 14 92/55 94 Room Air Intake and Output 05/30/16 05/31/16 19:00 07:00 Intake Total 955 ml 540 ml Output Total 0 ml Balance 955 ml 540 ml Intake Oral 900 ml 540 ml IV Total 55 ml Output Urine Total 0 ml # Voids 3 4 Laboratory Tests 05/31/16 05:50: White Blood Count 4.4L, Red Blood Count 3.06L, Hemoglobin 10.1L, Hematocrit 29.8L, Mean Corpuscular Volume 97, Mean Corpuscular Hemoglobin 33.0H, Mean Corpuscular Hemoglobin Concent 33.9, Red Cell Distribution Width 13.8, Platelet Count 162, Mean Platelet Volume 5.6L, Neutrophils (%) (Auto) 76.9H, Lymphocytes (%) (Auto) 12.6L, Monocytes (%) (Auto) 8.2, Eosinophils (%) (Auto) 0.8, Basophils (%) (Auto) 1.5, Sodium Level 142, Potassium Level 4.3, Chloride Level 97L, Carbon Dioxide Level 28, Anion Gap 17H, Blood Urea Nitrogen 45H, Creatinine 5.8H, Estimat Glomerular Filtration Rate 7.3, Glucose Level 101, Calcium Level 9.3, Carcinoembryonic Antigen 2.4 Height (Feet): 5 Height (Inches): 7.00 Weight (Pounds): 123 General Appearance: alert EENT: normal ENT inspection Neck: supple Cardiovascular: normal rate Respiratory/Chest: lungs clear Abdomen: normal bowel sounds, non tender, soft Extremities: non-tender CINDY PORTER May 31, 2016 09:10
--- NOTE | 2016-05-31 09:13 | Pulmonology Progress Note ---
Assessment/Plan Assessment/Plan ASSESSMENT acute anemia s/p 2 u PRBC GI bleeding ( 1 episode) ESRD, on HD UTI hypotension hx of [place] DM hypothyroidism PLAN OF CARE [facility] floor empiric abx, fup with urine cx+GNR s/p 2 u PRBC, HH stable, no trend down check stool OB ( Patient declines to provide) monitor HH , anemia workup with stable iron panel acute anemia likely combination of anemia of chronic renal disease and superimposed anemia 2 to GI bleeding HD as per nephro, monitor renal parameters, lytes GI eval appreciated patient declined any GI procedures at this time stated the episode was only 1 time cardio eval appreciated, hold anti HTN medications for now, closely monitor BP venous Duplex BLE negative TSH stable, continue current Levothyroxine dose BS management with SS of insulin dc plan for tomorrow after HD after urine sensitivity available to sent to assisted living on appropriate abx fup with outpt HD and PMD case discussed and evaluated by supervising physician Subjective Allergies: Coded Allergies: CODEINE (Verified Allergy, Unknown, 10/07/15) ERYTHROMYCIN BASE (Verified Allergy, Unknown, 10/07/15) Subjective HH stable after transfusion, no further trend down afebrile, no leucocytosis urine cx still pending sensitivity seen and evaluated by GI Objective Last 24 Hour Vital Signs Date Time Temp Pulse Resp B/P Pulse Ox O2 Delivery O2 Flow Rate FiO2 05/31/16 04:00 97.3 72 19 113/66 96 Room Air 05/31/16 00:00 97.7 69 18 104/64 95 Room Air 05/30/16 20:13 97.2 64 14 84/48 93 Room Air 05/30/16 15:57 97.9 60 14 92/55 94 Room Air Intake and Output 05/30/16 05/31/16 19:00 07:00 Intake Total 955 ml 540 ml Output Total 0 ml Balance 955 ml 540 ml Intake Oral 900 ml 540 ml IV Total 55 ml Output Urine Total 0 ml # Voids 3 4 Objective General Appearance: no apparent distress - thin female, forgetful Lines, tubes and drains: peripheral HEENT: normocephalic, atraumatic, anicteric, mucous membranes moist, PERRL, EOMI, supple, no JVD Neck: non-tender, normal alignment, supple Respiratory/Chest: lungs clear, normal breath sounds, no accessory muscle use Cardiovascular/Chest: normal peripheral pulses, normal rate, no JVD, other - LUE AV shunt, intact Abdomen: normal bowel sounds, non tender, soft Extremities: normal range of motion, non-tender, no calf tenderness, normal capillary refill Neurologic: alert, responsive - forgetful Musculoskeletal: normal muscle bulk Microbiology Date/Time Source Procedure Growth Status 05/29/16 17:20 Nasal Nares MRSA Culture - Final NO METHICILLIN RESISTANT STAPH AUREUS... Complete 05/29/16 12:50 Urine,Clean Catch Urine Culture - Preliminary Gram Negative Guillermo Resulted Laboratory Tests 05/31/16 05:50: White Blood Count 4.4L, Red Blood Count 3.06L, Hemoglobin 10.1L, Hematocrit 29.8L, Mean Corpuscular Volume 97, Mean Corpuscular Hemoglobin 33.0H, Mean Corpuscular Hemoglobin Concent 33.9, Red Cell Distribution Width 13.8, Platelet Count 162, Mean Platelet Volume 5.6L, Neutrophils (%) (Auto) 76.9H, Lymphocytes (%) (Auto) 12.6L, Monocytes (%) (Auto) 8.2, Eosinophils (%) (Auto) 0.8, Basophils (%) (Auto) 1.5, Sodium Level 142, Potassium Level 4.3, Chloride Level 97L, Carbon Dioxide Level 28, Anion Gap 17H, Blood Urea Nitrogen 45H, Creatinine 5.8H, Estimat Glomerular Filtration Rate 7.3, Glucose Level 101, Calcium Level 9.3, Carcinoembryonic Antigen 2.4 Current Medications Medications (Trade) Dose Ordered Sig/Basil Route PRN Reason Start Time Stop Time Status Last Admin Dose Admin Acetaminophen (Tylenol) 650 mg Q4H PRN ORAL fever 05/29/16 15:45 06/28/16 15:44 Al Hydroxide/Mg Hydroxide (Mylanta II) 30 ml Q6H PRN ORAL dyspepsia 05/29/16 15:45 06/28/16 15:44 Atorvastatin Calcium (Lipitor) 40 mg BEDTIME ORAL 05/29/16 21:00 06/28/16 20:59 05/30/16 20:26 Brimonidine Tartrate (Alphagan) 1 drop BID BOTH EYES 05/29/16 18:00 06/28/16 17:59 05/30/16 17:42 Ceftriaxone Sodium/Dextrose (Rocephin/D5W) 55 ml @ 110 mls/hr Q24H IVPB 05/30/16 14:00 06/06/16 13:59 05/30/16 15:06 Dextrose STAT PRN IV Hypoglycemia 05/29/16 15:45 06/28/16 15:44 Docusate Sodium (Colace) 100 mg BID ORAL 05/29/16 18:00 06/28/16 17:59 Lamotrigine (LaMICtal) 25 mg BID ORAL 05/29/16 18:00 06/28/16 17:59 05/30/16 17:42 Levothyroxine Sodium (Synthroid) 50 mcg ACBREAKFAST ORAL 05/30/16 06:30 06/29/16 06:29 05/30/16 07:12 Lorazepam (Ativan 2mg/ml 1ml) 0.5 mg Q4H PRN IV For Anxiety 05/29/16 15:45 06/05/16 15:44 Olanzapine (ZyPREXA) 5 mg BEDTIME ORAL 05/29/16 21:00 06/28/16 20:59 05/30/16 20:27 Ondansetron HCl (Zofran) 4 mg Q6H PRN IVP Nausea & Vomiting 05/29/16 15:45 06/28/16 15:44 Polyethylene Glycol (Miralax) 17 gm HSPRN PRN ORAL Constipation 05/29/16 15:45 06/28/16 15:44 Risperidone (RisperDAL) 1 mg DAILY ORAL 05/30/16 09:00 06/29/16 08:59 05/30/16 08:57 Sevelamer Carbonate (Renvela) 800 mg THREE TIMES A DAY ORAL 05/29/16 18:00 06/28/16 17:59 05/30/16 17:42 Zolpidem Tartrate (Ambien) 5 mg HSPRN PRN ORAL Insomnia 05/29/16 15:45 06/28/16 15:44 Rober DeleonSusi ribeiro NP May 31, 2016 09:13
[2016-05-31] MEDS: Brimonidine 0.2% Opth Sol BOTH EYES SCH ×2 (09:14→17:36)
[2016-05-31] MEDS: Renvela 800mg Pkt ORAL SCH ×3 (09:14→17:37)
[2016-05-31 12:00] VITALS: BP 96/58
[2016-05-31] MEDS: cefTRIAXone 1 GM in D5W 55 ML IVPB SCH (13:20)
[2016-05-31] MEDS ORDERED: Tubing IV Secondary IV ONE (15:20)
[2016-05-31] MEDS ORDERED: 1/2 NS 1000ml IV ONE (15:20)
[2016-05-31] MEDS ORDERED: NS 275ml ONE (15:20)
[2016-05-31 16:00] VITALS: BP 104/63
--- NOTE | 2016-05-31 20:08 | Nephrology Progress Note ---
Assessment/Plan Assessment 1.ESRD 2.Anemia of CKD 3.BIANCA 4.HTN 5. failure to thrive Plan plan to continue epogen dialysis in am check phos and PTH Monitoring electrolyte Subjective Constitutional: Reports: no symptoms HEENT: Reports: no symptoms Genitourinary: Reports: no symptoms Neurologic/Psychiatric: Reports: no symptoms Subjective alert and awake s/p hemodialysis and transfusion Objective Objective Last 24 Hour Vital Signs Date Time Temp Pulse Resp B/P Pulse Ox O2 Delivery O2 Flow Rate FiO2 05/31/16 16:00 97.5 65 20 104/63 98 Room Air 05/31/16 12:00 97.7 68 20 96/58 96 Room Air 05/31/16 08:00 97.3 77 20 94/62 94 Room Air 05/31/16 04:00 97.3 72 19 113/66 96 Room Air 05/31/16 00:00 97.7 69 18 104/64 95 Room Air 05/30/16 20:13 97.2 64 14 84/48 93 Room Air Intake and Output 05/30/16 05/31/16 19:00 07:00 Intake Total 955 ml 540 ml Output Total 0 ml Balance 955 ml 540 ml Intake Oral 900 ml 540 ml IV Total 55 ml Output Urine Total 0 ml # Voids 3 4 Laboratory Tests 05/31/16 05:50: White Blood Count 4.4L, Red Blood Count 3.06L, Hemoglobin 10.1L, Hematocrit 29.8L, Mean Corpuscular Volume 97, Mean Corpuscular Hemoglobin 33.0H, Mean Corpuscular Hemoglobin Concent 33.9, Red Cell Distribution Width 13.8, Platelet Count 162, Mean Platelet Volume 5.6L, Neutrophils (%) (Auto) 76.9H, Lymphocytes (%) (Auto) 12.6L, Monocytes (%) (Auto) 8.2, Eosinophils (%) (Auto) 0.8, Basophils (%) (Auto) 1.5, Sodium Level 142, Potassium Level 4.3, Chloride Level 97L, Carbon Dioxide Level 28, Anion Gap 17H, Blood Urea Nitrogen 45H, Creatinine 5.8H, Estimat Glomerular Filtration Rate 7.3, Glucose Level 101, Calcium Level 9.3, Carcinoembryonic Antigen 2.4 Height (Feet): 5 Height (Inches): 7.00 Weight (Pounds): 123 Objective General Appearance: alert and wake EENT: normal ENT inspection,PERRLA,no JVP Neck: supple Cardiovascular: normal rateS1,S2 Respiratory/Chest: lungs clear Abdomen: normal bowel sounds, non tender, soft Extremities: non-tender JOSE LUIS WYNN May 31, 2016 20:08
[2016-05-31] MEDS: OLANZapine 2.5mg tab ORAL SCH (20:42)
[2016-06-01 00:23] VITALS: BP 101/67
[2016-06-01 04:00] VITALS: BP 102/65
[2016-06-01 07:30] LABS: BASOPHILS % (AUTO) 1.1 % (0.0-2.0); EOSINOPHILS % (AUTO) 1.1 % (0.0-3.0); LYMPHOCYTES % (AUTO) 14.4 % (20.0-45.0); MEAN CORPUSCULAR HEMOGLOBIN 33.2 PG (27.0-31.0); MEAN CORPUSCULAR HGB CONC 33.9 G/DL (32.0-36.0); MEAN CORPUSCULAR VOLUME 98 FL (80-99); MEAN PLATELET VOLUME 5.4 FL (6.5-10.1); MONOCYTES % (AUTO) 6.9 % (1.0-10.0); NEUTROPHILS % (AUTO) 76.5 % (45.0-75.0); PLATELET COUNT 150 K/UL (150-450); RED BLOOD COUNT 3.07 M/UL (4.20-5.40); WHITE BLOOD COUNT 4.4 K/UL (4.8-10.8)
[2016-06-01 07:59] LABS: CALCIUM 9.4 mg/dL (8.6-10.2); CREATININE 6.6 mg/dL (0.5-0.9); GLOMERULAR FILTRATION RATE 6.3 mL/min (>60); POTASSIUM 4.6 mEQ/L (3.4-4.9)
[2016-06-01 08:00] VITALS: BP 99/63
[2016-06-01] MEDS: Docusate 100mg cap ORAL SCH (08:34)
[2016-06-01] MEDS: Brimonidine 0.2% Opth Sol BOTH EYES SCH (08:35)
[2016-06-01] MEDS: Renvela 800mg Pkt ORAL SCH ×2 (08:35→13:00)
--- NOTE | 2016-06-01 09:12 | Nephrology Progress Note ---
Assessment/Plan Assessment 1.ESRD 2.Anemia of CKD 3.BIANCA 4.HTN 5. failure to thrive Plan plan to continue epogen dialysis today nutritional support check phos and PTH Monitoring electrolyte Subjective Constitutional: Reports: no symptoms Genitourinary: Reports: no symptoms Neurologic/Psychiatric: Reports: no symptoms Subjective alert and awake no complaints on hemodialysis Objective Objective Last 24 Hour Vital Signs Date Time Temp Pulse Resp B/P Pulse Ox O2 Delivery O2 Flow Rate FiO2 06/01/16 04:00 98.2 77 18 102/65 97 Room Air 06/01/16 00:23 97.3 72 18 101/67 96 Room Air 05/31/16 16:00 97.5 65 20 104/63 98 Room Air 05/31/16 12:00 97.7 68 20 96/58 96 Room Air Intake and Output 05/31/16 06/01/16 19:00 07:00 Intake Total 240 ml 220 ml Balance 240 ml 220 ml Intake Oral 240 ml 220 ml # Voids 3 2 Laboratory Tests 06/01/16 05:20: White Blood Count 4.4L, Red Blood Count 3.07L, Hemoglobin 10.2L, Hematocrit 30.1L, Mean Corpuscular Volume 98, Mean Corpuscular Hemoglobin 33.2H, Mean Corpuscular Hemoglobin Concent 33.9, Red Cell Distribution Width 14.0, Platelet Count 150, Mean Platelet Volume 5.4L, Neutrophils (%) (Auto) 76.5H, Lymphocytes (%) (Auto) 14.4L, Monocytes (%) (Auto) 6.9, Eosinophils (%) (Auto) 1.1, Basophils (%) (Auto) 1.1, Sodium Level 145, Potassium Level 4.6, Chloride Level 99, Carbon Dioxide Level 28, Anion Gap 18H, Blood Urea Nitrogen 65H, Creatinine 6.6H, Estimat Glomerular Filtration Rate 6.3, Glucose Level 100, Calcium Level 9.4 Height (Feet): 5 Height (Inches): 7.00 Weight (Pounds): 123 Objective General Appearance: alert and wake EENT: normal ENT inspection,PERRLA,no JVP Neck: supple Cardiovascular: normal rateS1,S2 Respiratory/Chest: lungs clear Abdomen: normal bowel sounds, non tender, soft Extremities: non-tender JOSE LUIS WYNN Jun 01, 2016 09:12
[2016-06-01 11:45] VITALS: BP 95/62
[2016-06-01 12:08] VITALS: BP 128/89
--- NOTE | 2016-06-01 12:20 | GI Progress Note ---
Assessment/Plan Problems: (1) Constipated ICD Codes: K59.00 - Constipation, unspecified SNOMED: 22014056 (2) ESRD (end stage renal disease) on dialysis ICD Codes: N18.6 - End stage renal disease; Z99.2 - Dependence on renal dialysis SNOMED: 728957314 (3) Anemia ICD Codes: D64.9 - Anemia, unspecified SNOMED: 179674502 (4) Diabetes ICD Codes: E11.9 - Type 2 diabetes mellitus without complications SNOMED: 18361555 Status: unchanged Status Narrative Discussed with Dr. Sorto. Assessment/Plan ok for DC per GI standpoint refusing GI procedures fu stool ob fu labs Subjective Gastrointestinal/Abdominal: Reports: no symptoms Objective Last 24 Hour Vital Signs Date Time Temp Pulse Resp B/P Pulse Ox O2 Delivery O2 Flow Rate FiO2 06/01/16 12:08 98.4 94 19 128/89 98 Room Air 06/01/16 08:20 Room Air 06/01/16 08:00 97.9 82 19 99/63 94 Room Air 06/01/16 04:00 98.2 77 18 102/65 97 Room Air 06/01/16 00:23 97.3 72 18 101/67 96 Room Air 05/31/16 16:00 97.5 65 20 104/63 98 Room Air Intake and Output 05/31/16 06/01/16 19:00 07:00 Intake Total 240 ml 220 ml Balance 240 ml 220 ml Intake Oral 240 ml 220 ml # Voids 3 2 Laboratory Tests Test 06/01/16 05:20 White Blood Count 4.4 K/UL (4.8-10.8) L Red Blood Count 3.07 M/UL (4.20-5.40) L Hemoglobin 10.2 G/DL (12.0-16.0) L Hematocrit 30.1 % (37.0-47.0) L Mean Corpuscular Volume 98 FL (80-99) Mean Corpuscular Hemoglobin 33.2 PG (27.0-31.0) H Mean Corpuscular Hemoglobin Concent 33.9 G/DL (32.0-36.0) Red Cell Distribution Width 14.0 % (11.6-14.8) Platelet Count 150 K/UL (150-450) Mean Platelet Volume 5.4 FL (6.5-10.1) L Neutrophils (%) (Auto) 76.5 % (45.0-75.0) H Lymphocytes (%) (Auto) 14.4 % (20.0-45.0) L Monocytes (%) (Auto) 6.9 % (1.0-10.0) Eosinophils (%) (Auto) 1.1 % (0.0-3.0) Basophils (%) (Auto) 1.1 % (0.0-2.0) Sodium Level 145 mEQ/L (135-145) Potassium Level 4.6 mEQ/L (3.4-4.9) Chloride Level 99 mEQ/L (98-107) Carbon Dioxide Level 28 mEQ/L (20-30) Anion Gap 18 (5-15) H Blood Urea Nitrogen 65 mg/dL (7-23) H Creatinine 6.6 mg/dL (0.5-0.9) H Estimat Glomerular Filtration Rate 6.3 mL/min (>60) Glucose Level 100 mg/dL (74-106) Calcium Level 9.4 mg/dL (8.6-10.2) Height (Feet): 5 Height (Inches): 7.00 Weight (Pounds): 123 General Appearance: no apparent distress, alert Cardiovascular: normal rate Respiratory/Chest: normal breath sounds, no respiratory distress Abdominal Exam: normal bowel sounds, non tender, soft Danielle Villaseñor N.PZev Jun 01, 2016 12:20
[2016-06-01] MEDS: cefTRIAXone 1 GM in D5W 55 ML IVPB SCH (14:00)
[2016-06-01 16:00] VITALS: BP 98/63
--- NOTE | 2016-06-01 17:39 | Pulmonology Progress Note ---
Assessment/Plan Assessment/Plan Assessment/Plan Assessment/Plan ASSESSMENT acute anemia s/p 2 u PRBC GI bleeding ( 1 episode) ESRD, on HD UTI hypotension hx of MA DM hypothyroidism PLAN OF CARE MS floor empiric abx, fup with urine cx+GNR s/p 2 u PRBC, HH stable, no trend down check stool OB ( Patient declines to provide) monitor HH , anemia workup with stable iron panel Subjective Constitutional: Reports: anorexia, fatigue Neurologic: Reports: weakness Allergies: Coded Allergies: CODEINE (Verified Allergy, Unknown, 10/07/15) ERYTHROMYCIN BASE (Verified Allergy, Unknown, 10/07/15) Objective Last 24 Hour Vital Signs Date Time Temp Pulse Resp B/P Pulse Ox O2 Delivery O2 Flow Rate FiO2 06/01/16 16:00 98.4 86 18 98/63 94 Room Air 06/01/16 12:08 98.4 94 19 128/89 98 Room Air 06/01/16 11:45 97.0 86 18 95/62 97 Room Air 06/01/16 11:30 Room Air 06/01/16 08:20 Room Air 06/01/16 08:00 97.9 82 19 99/63 94 Room Air 06/01/16 04:00 98.2 77 18 102/65 97 Room Air 06/01/16 00:23 97.3 72 18 101/67 96 Room Air Intake and Output 05/31/16 06/01/16 19:00 07:00 Intake Total 240 ml 220 ml Balance 240 ml 220 ml Intake Oral 240 ml 220 ml # Voids 3 2 General Appearance: no acute distress HEENT: normocephalic, atraumatic, PERRL Respiratory/Chest: chest wall non-tender, decreased breath sounds, accessory muscle use Breasts: no masses Cardiovascular: normal peripheral pulses, normal rate, regular rhythm Abdomen: normal bowel sounds, distended, guarding, tender Genitourinary: normal external genitalia Extremities: no cyanosis Neurologic/Psychiatric: vice principal II-XII grossly normal, no motor/sensory deficits Laboratory Tests 06/01/16 05:20: White Blood Count 4.4L, Red Blood Count 3.07L, Hemoglobin 10.2L, Hematocrit 30.1L, Mean Corpuscular Volume 98, Mean Corpuscular Hemoglobin 33.2H, Mean Corpuscular Hemoglobin Concent 33.9, Red Cell Distribution Width 14.0, Platelet Count 150, Mean Platelet Volume 5.4L, Neutrophils (%) (Auto) 76.5H, Lymphocytes (%) (Auto) 14.4L, Monocytes (%) (Auto) 6.9, Eosinophils (%) (Auto) 1.1, Basophils (%) (Auto) 1.1, Sodium Level 145, Potassium Level 4.6, Chloride Level 99, Carbon Dioxide Level 28, Anion Gap 18H, Blood Urea Nitrogen 65H, Creatinine 6.6H, Estimat Glomerular Filtration Rate 6.3, Glucose Level 100, Calcium Level 9.4 Current Medications Medications (Trade) Dose Ordered Sig/Basil Route PRN Reason Start Time Stop Time Status Last Admin Dose Admin Acetaminophen (Tylenol) 650 mg Q4H PRN ORAL fever 05/29/16 15:45 06/28/16 15:44 Al Hydroxide/Mg Hydroxide (Mylanta II) 30 ml Q6H PRN ORAL dyspepsia 05/29/16 15:45 06/28/16 15:44 Atorvastatin Calcium (Lipitor) 40 mg BEDTIME ORAL 05/29/16 21:00 06/28/16 20:59 05/31/16 20:42 Brimonidine Tartrate (Alphagan) 1 drop BID BOTH EYES 05/29/16 18:00 06/28/16 17:59 05/31/16 09:14 Ceftriaxone Sodium/Dextrose (Rocephin/D5W) 55 ml @ 110 mls/hr Q24H IVPB 05/30/16 14:00 06/06/16 13:59 05/31/16 13:20 Dextrose STAT PRN IV Hypoglycemia 05/29/16 15:45 06/28/16 15:44 Docusate Sodium (Colace) 100 mg BID ORAL 05/29/16 18:00 06/28/16 17:59 Lamotrigine (LaMICtal) 25 mg BID ORAL 05/29/16 18:00 06/28/16 17:59 05/31/16 17:35 Levothyroxine Sodium (Synthroid) 50 mcg ACBREAKFAST ORAL 05/30/16 06:30 06/29/16 06:29 06/01/16 05:41 Lorazepam (Ativan 2mg/ml 1ml) 0.5 mg Q4H PRN IV For Anxiety 05/29/16 15:45 06/05/16 15:44 Olanzapine (ZyPREXA) 5 mg BEDTIME ORAL 06/01/16 21:00 07/01/16 20:59 Ondansetron HCl (Zofran) 4 mg Q6H PRN IVP Nausea & Vomiting 05/29/16 15:45 06/28/16 15:44 Polyethylene Glycol (Miralax) 17 gm HSPRN PRN ORAL Constipation 05/29/16 15:45 06/28/16 15:44 Risperidone (RisperDAL) 1 mg DAILY ORAL 05/30/16 09:00 06/29/16 08:59 05/31/16 09:14 Sevelamer Carbonate (Renvela) 800 mg THREE TIMES A DAY ORAL 05/29/16 18:00 06/28/16 17:59 05/31/16 13:17 Zolpidem Tartrate (Ambien) 5 mg HSPRN PRN ORAL Insomnia 05/29/16 15:45 06/28/16 15:44 LONI AGUILLON Jun 01, 2016 17:39
--- NOTE | 2016-06-01 19:12 | Cardiology Report ---
APPROVED REPORT EKG Measurement Heart [id number] Normal sinus rhythm Cannot rule out Anterior infarct, age undetermined Abnormal ECG
--- NOTE | 2016-06-01 21:33 | Cardiology Progress Note ---
Assessment/Plan Assessment/Plan 1. Hypotension, asymptomatic, ?hypovolemia due to excessive fluid withdrawal during HD, blood pressure meds on hold, continue observe hemodynamics. 2. End-stage renal disease. 3. Hyperkalemia resolved. 4. Anemia, improved after blood transfusion. Subjective Subjective No cardiac events. Denies CP or SOB. Objective Last 24 Hour Vital Signs Date Time Temp Pulse Resp B/P Pulse Ox O2 Delivery O2 Flow Rate FiO2 06/01/16 16:00 98.4 86 18 98/63 94 Room Air 06/01/16 12:08 98.4 94 19 128/89 98 Room Air 06/01/16 11:45 97.0 86 18 95/62 97 Room Air 06/01/16 11:30 Room Air 06/01/16 08:20 Room Air 06/01/16 08:00 97.9 82 19 99/63 94 Room Air 06/01/16 04:00 98.2 77 18 102/65 97 Room Air 06/01/16 00:23 97.3 72 18 101/67 96 Room Air Intake and Output 05/31/16 06/01/16 19:00 07:00 Intake Total 240 ml 220 ml Balance 240 ml 220 ml Intake Oral 240 ml 220 ml # Voids 3 2 Laboratory Tests Test 06/01/16 05:20 White Blood Count 4.4 K/UL (4.8-10.8) L Red Blood Count 3.07 M/UL (4.20-5.40) L Hemoglobin 10.2 G/DL (12.0-16.0) L Hematocrit 30.1 % (37.0-47.0) L Mean Corpuscular Volume 98 FL (80-99) Mean Corpuscular Hemoglobin 33.2 PG (27.0-31.0) H Mean Corpuscular Hemoglobin Concent 33.9 G/DL (32.0-36.0) Red Cell Distribution Width 14.0 % (11.6-14.8) Platelet Count 150 K/UL (150-450) Mean Platelet Volume 5.4 FL (6.5-10.1) L Neutrophils (%) (Auto) 76.5 % (45.0-75.0) H Lymphocytes (%) (Auto) 14.4 % (20.0-45.0) L Monocytes (%) (Auto) 6.9 % (1.0-10.0) Eosinophils (%) (Auto) 1.1 % (0.0-3.0) Basophils (%) (Auto) 1.1 % (0.0-2.0) Sodium Level 145 mEQ/L (135-145) Potassium Level 4.6 mEQ/L (3.4-4.9) Chloride Level 99 mEQ/L (98-107) Carbon Dioxide Level 28 mEQ/L (20-30) Anion Gap 18 (5-15) H Blood Urea Nitrogen 65 mg/dL (7-23) H Creatinine 6.6 mg/dL (0.5-0.9) H Estimat Glomerular Filtration Rate 6.3 mL/min (>60) Glucose Level 100 mg/dL (74-106) Calcium Level 9.4 mg/dL (8.6-10.2) Objective GENERAL: The patient is a very unfortunate 66-year-old female, in no apparent respiratory distress, alert, and oriented x4. HEENT: Atraumatic and normocephalic. Anicteric. Pupils are equal, round, and reactive to light and accommodation. Extraocular muscles intact. NECK: JVP less than 5 cm. No carotid bruits. Carotid upstroke is 2+ bilaterally. CVS: Normal S1 and S2. Regular rate and rhythm. No murmurs, gallops, or rubs. PMI is at fourth intercostal space in midclavicular line. LUNGS: Clear to auscultation bilaterally. ABDOMEN: Soft, nontender, and nondistended. No hepatosplenomegaly. Positive bowel sounds. EXTREMITIES: No evidence of edema, clubbing, or cyanosis. LEO JUAREZ Jun 01, 2016 21:33
[2016-06-02] MEDS ORDERED: CEPHALEXIN500 MG ORAL (10:44)
--- NOTE | 2016-06-02 10:53 | Discharge Summary ---
Discharge Summary Hospital Course Date of Admission May 29, 2016 at 14:07 Date of Discharge Jun 01, 2016 at 16:00 Admitting Diagnosis anemia, UTI HPI Brianna Ibanez is a 66 year old female who was admitted on May 29, 2016 at 14:07 for Anemia, Urinary Tract Infection Hospital Course dc summary dictated # [id number] Discharge Medications New Medications: Cephalexin* (Keflex*) 500 Mg Capsule 250 MG ORAL EVERY 12 HOURS for 6 Days, #14 CAP 0 Refills Continued Medications: Aspirin* (Aspir 81*) 81 Mg Tablet.dr 81 MG ORAL DAILY, TAB Atorvastatin Calcium* (Atorvastatin Calcium*) 40 Mg Tablet 40 MG ORAL BEDTIME, TAB Brimonidine Tartrate* (Alphagan*) 5 Ml Drops 1 DROP BOTH EYES BID, ML Docusate Sodium (Stool Softener) 100 Mg Capsule 100 MG PO BID, CAP Lamotrigine* (Lamictal*) 25 Mg Tablet 25 MG ORAL BID, #30 TAB 0 Refills Levothyroxine Sodium (Synthroid) 50 Mcg Tab 50 MCG ORAL DAILY, TAB Take in the morning on an empty stomach, at least 30 minutes before food. Moxifloxacin HCl (Vigamox) 1 Drop Soln 1 DROP LEFT EYE FOUR TIMES A DAY, #3 ML 0 Refills Olanzapine (Olanzapine) 5 Mg Tablet 5 MG ORAL BEDTIME, #30 TAB Risperidone* (Risperdal*) 1 Mg Tablet 1 MG PO HS, TAB Risperidone* (Risperdal*) 0.5 Mg Tablet 0.5 MG ORAL AM, #30 TAB 0 Refills Sevelamer Carbonate* (Renvela*) 0.8 Gm Powd.pack 800 MG ORAL THREE TIMES A DAY, PACK Discharge Condition Upon Discharge: stable Discharge Disposition Patient was discharged to [facility] Discharge Diagnoses: Rober (Ghazalvon)Susi NP Jun 02, 2016 10:53
--- NOTE | 2016-06-03 02:47 | Discharge Summary ---
DATE OF ADMISSION: 05/29/2016 DATE OF DISCHARGE: 06/01/2016 REASON FOR ADMISSION: 66-year-old female with end-stage renal disease and diabetes, presented with fatigue, which began a month prior and was getting progressively worse. The patient lives in an assisted living. She admitted to history of anemia. She also reported one episode of dark stool 2 days ago. She denied chest pain. Denied shortness of breath. No abdominal pain. No myalgia. No numbness or tingling. No headache. No blurred vision. No dizziness. No nausea. No vomiting. The patient on dialysis schedule Wednesday, Wednesday and Wednesday. Last dialysis was done 2 days prior to coming to the emergency department. Workup in the emergency department revealed hemoglobin of 7.6 and hematocrit of 22.8. Patient was hypotensive, past history of VT, troponin was negative. The patient was admitted for blood transfusion and further management. ADMITTING DIAGNOSES: 1. Acute anemia. 2. End-stage renal disease. 3. Diabetes mellitus. 4. Possible GI bleeding 5. Hypotension HOSPITAL STAY: The patient was admitted to Med/Surg floor. The patient undergone transfusion of 2 units of packed red blood cells. Noted low blood pressure. However, the patient was asymptomatic. Denied any complains of being weak. Cardiology consult was requested. Special Education Superintendent at this time recommended to hold all antihypertensive medication. EKG revealed normal sinus rhythm. No further cardiac interventions at this time. Troponin was negative. Chest x-ray, no acute cardiopulmonary disease. Hyperkalemia was treated and potassium was stable afterwards. GI consult requested for possible GI bleeding with one episode of melena. GI seen the patient. The patient declined any GI procedure at this time. Her hemoglobin and hematocrit were stable after transfusion. No trend down. Anemia workup revealed stable iron. Stool OB was not collected. The patient declined to provide specimen. CEA within normal limits. Folate and B12 levels were stable. The patient was advised to have GI procedure as outpatient. Hemodialysis was done as per Nephrology orders and renal parameters and electrolytes were closely monitored. Urinalysis with evidence of urinary tract infection. The patient was started on empiric antibiotics. Urine culture with E. coli. The patient will continue oral antibiotic for additional three days upon discharge. Venous duplex of bilateral lower extremities was negative. Stable TSH, continue current levothyroxine dose. Blood sugar was managed with sliding scale of insulin and was stable. Acute anemia was likely combination of anemia of chronic renal disease as well as superimposed anemia possible to the GI bleeding. Again recommended outpatient GI procedure. DISCHARGE DIAGNOSES: Include, 1. Acute anemia status post 2 units transfusion of packed red blood cells. 2. Possible gastrointestinal bleeding (one episode). 3. End-stage renal disease, on hemodialysis. 4. Urinary tract infection. 5. Hypertension, asymptomatic. 6. History of myocardial infarction. 7. Diabetes mellitus. 8. Hypothyroidism. DISCHARGE MEDICATIONS: See medication reconciliation list. DISCHARGE INSTRUCTIONS: The patient was discharged to assisted living where she resides. Follow up with the primary medical doctor. Continue antibiotics for additional three days. Recommended to follow up with the GI doctor for outpatient GI procedure. Sarah Renee M.D. Susi ChavezSt. Catherine Of Siena Medical CenterCony NZevPZev DR: RUKHSANA JOB#: [id number] CC: JAMEL
== END 2016-06-01 16:00 | disposition home or self-care (01) | DRG 377 ==
LOC: EMR 12:52 → 3E 14:07 → EDBEDREQ 16:19
PROC: 30233N1 Transfusion of Nonautologous Red Blood Cells into Peripheral Vein, Percutaneous Approach (ICD-10-PCS; principal; 2016-05-29)
PROC: 5A1D60Z (ICD-10-PCS; principal; 2016-05-29)
DX: K92.2 Gastrointestinal hemorrhage, unspecified (principal); N18.6 End stage renal disease; I95.9 Hypotension, unspecified; E11.42 Type 2 diabetes mellitus with diabetic polyneuropathy; E87.5 Hyperkalemia; I12.0 Hypertensive chronic kidney disease with stage 5 chronic kidney disease or end stage renal disease; N39.0 Urinary tract infection, site not specified; D62 Acute posthemorrhagic anemia; Z99.2 Dependence on renal dialysis; I25.2 Old myocardial infarction; E03.9 Hypothyroidism, unspecified; D63.1 Anemia in chronic kidney disease; Z88.6 Allergy status to analgesic agent; Z88.1 Allergy status to other antibiotic agents; E78.5 Hyperlipidemia, unspecified; N25.0 Renal osteodystrophy; R62.7 Adult failure to thrive; B96.20 Unspecified Escherichia coli [E. coli] as the cause of diseases classified elsewhere
CPT/HCPCS: 36415; 71010; 80048; 80053; 81003; 82378; 82550; 82553; 82607; 82746; 82962; 83540; 83550; 83615; 84443; 84484; 85007; 85025; 85044; 85060; 85610; 85651; 85730; 86850; 86900; 86901; 86920; 87081; 87086; 87181; 93005; 93970

== ENCOUNTER 2016-06-03 15:22 | Emergency (ER) | payer MEDICARE, MEDICAID ==
[~2016-06-03] VITALS: Ht 170.2 cm; Wt 54.4 kg
[~2016-06-03 15:22] MED LIST changes: +CEPHALEXIN500 MG ORAL
[2016-06-03 15:52] VITALS: BP 85/53
--- NOTE | 2016-06-03 16:37 | Diagnostic Imaging Report ---
Indications: And the Technique: Spiral acquisitions obtained through the brain. Angled axial and coronal 5 x 5 mm slices were reconstructed. Total dose length product 1330 mGycm. CTDI vol(s) 70 mGy Comparison: None Findings: No acute hemorrhage or edema. No mass effect or midline shift. Normal canela-white differentiation. Normal size ventricles and extra-axial CSF spaces. There is pronounced calvarial hyperostosis. Calvarium is intact. Visualized orbits and sinuses are unremarkable. Impression: Negative The CT scanner at [facility] is accredited by the [employer] and the scans are performed using protocols designed to limit radiation exposure to as low as reasonably achievable to attain images of sufficient resolution adequate for diagnostic evaluation.
--- NOTE | 2016-06-03 17:36 | Emergency Room Report ---
History of Present Illness General Chief Complaint: Head Injury Source: Patient Present Illness HPI 66 YO F sent from [facility] for ?head injury after fell out of bed last night. Patient alleges hitting left front of forehead. Denies LOC, nausea/ vomiting, blurry/change of vision. Not on ASA or AC. Feels well otherwise. Offers "my BP is always low." Otherwise denies cough, fever/chills, chest pain , SOB, abd pain, headache. Allergies: Coded Allergies: CODEINE (Verified Allergy, Unknown, 10/07/15) ERYTHROMYCIN BASE (Verified Allergy, Unknown, 10/07/15) Patient History Past Medical History: none Past Surgical History: none Pertinent Family History: none Social History: Denies: alcohol use, drug use, smoking Now: No Immunizations: UTD Reviewed Nursing Documentation: PMH: Agreed, PSxH: Agreed Nursing Documentation-PMH Past Medical History: No History, Except For Hx Cardiac Problems: Yes - IN Hx Diabetes: Yes Hx Cancer: No Hx Gastrointestinal Problems: No Hx Dialysis: Yes Hx Neurological Problems: No Review of Systems All Other Systems: negative except mentioned in HPI Physical Exam Vital Signs Date Time Temp Pulse Resp B/P Pulse Ox O2 Delivery O2 Flow Rate FiO2 06/03/16 15:39 98.1 80 14 85/53 97 Sp02 EP Interpretation: reviewed, normal General Appearance: normal inspection, well appearing, no apparent distress, alert, GCS 15, non-toxic Head: normocephalic, other - Small hematoma left forehead. No lac or overlying abrasion.l Eyes: bilateral eye EOMI, bilateral eye PERRL ENT: normal ENT inspection, hearing grossly normal, normal voice Neck: normal inspection, full range of motion, supple, no bony tend Respiratory: normal inspection, lungs clear, normal breath sounds, no respiratory distress, no retraction, no wheezing Cardiovascular #1: regular rate, rhythm, no edema Gastrointestinal: normal inspection, normal bowel sounds, non tender, soft, no guarding, no hernia Genitourinary: no CVA tenderness Musculoskeletal: normal inspection, back normal, normal range of motion, Rome' s Sign negative Neurologic: normal inspection, alert, oriented x3, responsive, physicians and surgeons III-XII nml as tested, motor strength/tone normal, DTRs symmetric, speech normal Psychiatric: normal inspection, judgement/insight normal, mood/affect normal Skin: normal inspection, normal color, no rash Medical Decision Making Diagnostic Impression: Primary Impression: Acute head injury Qualified Codes: S09.90XA - Unspecified injury of head, initial encounter ER Course 66 YO F with ?fall out of bed last night, minor trauma to left forehead. VSS. Afebrile. No focal neuro deficits. CT head negative for acute traumatic injury Patient not on ASA, AC so no need for observation, re-imaging Patient has noted low BP here but no sign of infection, systemic illness, or tachycardia DC back to SNF Last Vital Signs Date Time Temp Pulse Resp B/P Pulse Ox O2 Delivery O2 Flow Rate FiO2 06/03/16 15:39 98.1 80 14 85/53 97 Status: improved Disposition: ASSISTED LIVING Condition: Improved Patient Instructions: Hematoma, [id number] Additional Instructions: - No acute intracranial bleed or trauma seen on CT - Take tylenol as needed for pain or apply ice to area of pain - Follow up with your doctor in 2-3 days ILENE HANLEY M.D. Jun 03, 2016 17:36
[2016-06-03 17:48] VITALS: BP 95/61
[2016-06-03 17:52] VITALS: BP 95/61
== END 2016-06-03 17:55 | disposition home or self-care (01) ==
LOC: EMR 17:25
DX: S00.83XA Contusion of other part of head, initial encounter (principal); W06.XXXA Fall from bed, initial encounter; Y92.129 Unspecified place in nursing home as the place of occurrence of the external cause; Z88.6 Allergy status to analgesic agent; Z88.1 Allergy status to other antibiotic agents; I25.2 Old myocardial infarction; E11.9 Type 2 diabetes mellitus without complications
CPT/HCPCS: 70450; 99284

== ENCOUNTER 2018-11-23 11:12 | Observation (INO) | payer MEDICARE, MEDICAID ==
[~2018-11-23] VITALS: Ht 170.2 cm; Wt 63.2 kg
--- NOTE | 2018-11-23 01:30 | NUR ---
NURSE NOTES: Licona inserted for retention. 2700 cc of urine drained from licona cath. Dr. Jacobo notified.
--- NOTE | 2018-11-23 11:43 | History and Physical ---
History of Present Illness General Date patient seen: Nov 23, 2018 Present Illness HPI 68 year old female with hx of ESRF on HD, depression, living in an assisted living presented to ER with CC of swelling of right leg, very gradually noticed. She has missed her HD today already. Allergies: Coded Allergies: CODEINE (Verified Allergy, Unknown, 10/07/15) ERYTHROMYCIN BASE (Verified Allergy, Unknown, 10/07/15) Medication History Scheduled Aspirin* (Aspir 81*), 81 MG ORAL DAILY, (Reported) Atorvastatin Calcium* (Atorvastatin Calcium*), 40 MG ORAL BEDTIME, (Reported) Brimonidine Tartrate* (Alphagan*), 1 DROP BOTH EYES BID, (Reported) Cephalexin* (Keflex*), 250 MG ORAL EVERY 12 HOURS Docusate Sodium (Stool Softener), 100 MG PO BID, (Reported) Lamotrigine* (Lamictal*), 25 MG ORAL BID, (Reported) Levothyroxine Sodium (Synthroid), 50 MCG ORAL DAILY, (Reported) Moxifloxacin HCl (Vigamox), 1 DROP LEFT EYE FOUR TIMES A DAY, (Reported) Olanzapine (Olanzapine), 5 MG ORAL BEDTIME Risperidone* (Risperdal*), 1 MG PO HS, (Reported) Risperidone* (Risperdal*), 0.5 MG ORAL AM, (Reported) Sevelamer Carbonate* (Renvela*), 800 MG ORAL THREE TIMES A DAY, (Reported) Patient History Healthcare decision maker Resuscitation status Advanced Directive on File Yes Past Medical/Surgical History Past Medical/Surgical History: (1) ESRD (end stage renal disease) on dialysis (2) HTN (hypertension) (3) Hypothyroidism Review of Systems Constitutional: Reports: no symptoms All Other Systems: negative except mentioned in HPI Physical Exam General Appearance: cachetic, thin Lines, tubes and drains: peripheral HEENT: normocephalic, atraumatic Neck: non-tender, supple Respiratory/Chest: chest wall non-tender, lungs clear Breasts: no masses Cardiovascular/Chest: normal rate Abdomen: normal bowel sounds, non tender Genitourinary/Rectal: normal genital exam Extremities: normal range of motion Skin Exam: normal pigmentation Neurologic: detective II-XII grossly normal Medications Current Medications Medications (Trade) Dose Ordered Sig/Basil Route PRN Reason Start Time Stop Time Status Last Admin Dose Admin Acetaminophen (Tylenol) 650 mg Q4H PRN ORAL Fever 11/23/18 11:45 12/23/18 11:44 UNV Albuterol/ Ipratropium (Albuterol/ Ipratropium) 3 ml EVERY 4 HOURS PRN HHN Shortness of Breath 11/23/18 11:45 11/28/18 11:44 UNV Aspirin (Ecotrin) 81 mg DAILY ORAL 11/24/18 09:00 12/24/18 08:59 UNV Atorvastatin Calcium (Lipitor) 40 mg BEDTIME ORAL 11/23/18 21:00 12/23/18 20:59 UNV Brimonidine Tartrate (Alphagan) 1 drop BID BOTH EYES 11/23/18 18:00 12/23/18 17:59 UNV Dextrose (Dextrose 50%) 25 ml Q30M PRN IV Hypoglycemia 11/23/18 11:45 12/23/18 11:44 UNV Dextrose (Dextrose 50%) 50 ml Q30M PRN IV Hypoglycemia 11/23/18 11:45 12/23/18 11:44 UNV Docusate Sodium (Colace) 100 mg BID ORAL 11/23/18 18:00 12/23/18 17:59 UNV Heparin Sodium (Porcine) (Heparin 5000 units/ml) 5,000 units EVERY 12 HOURS SUBQ 11/23/18 21:00 12/23/18 20:59 UNV Levothyroxine Sodium (Synthroid) 50 mcg DAILY ORAL 11/24/18 09:00 12/24/18 08:59 UNV Olanzapine (ZyPREXA) 5 mg BEDTIME ORAL 11/23/18 21:00 12/23/18 20:59 UNV Ondansetron HCl (Zofran) 4 mg Q6H PRN IVP Nausea & Vomiting 11/23/18 11:45 12/23/18 11:44 UNV Ondansetron HCl (Zofran) 4 mg Q6H PRN IVP Nausea & Vomiting 11/23/18 11:45 12/23/18 11:44 UNV Polyethylene Glycol (Miralax) 17 gm DAILYPRN PRN ORAL Constipation 11/23/18 11:45 12/23/18 11:44 UNV Risperidone (RisperDAL) 1 mg BIOTEC ORAL 11/23/18 21:00 12/23/18 20:59 UNV Sevelamer Carbonate (Renvela) 800 mg THREE TIMES A DAY ORAL 11/23/18 13:00 12/23/18 12:59 UNV Temazepam (Restoril) 15 mg HSPRN PRN ORAL Insomnia 11/23/18 11:45 11/30/18 11:44 UNV Assessment/Plan Problem List: (1) ESRD (end stage renal disease) on dialysis ICD Codes: N18.6 - End stage renal disease; Z99.2 - Dependence on renal dialysis SNOMED: 239788572 (2) Hypothyroidism ICD Codes: E03.9 - Hypothyroidism, unspecified SNOMED: 46933499 (3) HTN (hypertension) ICD Codes: I10 - Essential (primary) hypertension SNOMED: 07555432 Assessment/Plan: venous doppler of legs nephrology to dialyze resume fpc meds Low h/h, pt doesn't want any blood transfusion. will give multivitamin, folic acid and B12 Sarah Renee MD Nov 23, 2018 11:43
[2018-11-23] MEDS ORDERED: Albuterol/Ipratropium 3ml neb HHN PRN (11:45)
[2018-11-23] MEDS ORDERED: Miralax 17gm pkt ORAL PRN (11:45)
[2018-11-23 12:00] VITALS: BP 91/55
--- NOTE | 2018-11-23 12:00 | NUR ---
NURSE NOTES: Received direct admit from [facility] assisted living. Pt is alert and oriented X 3. Heart monitor applied to patient. Pt has BLE swelling. Belongings list signed and are at patients bedside. Will continue to monitor.
[2018-11-23 12:08] LABS: HEMOGLOBIN 7.6 G/DL (12.0-16.0); MEAN CORPUSCULAR VOLUME 95 FL (80-99); PLATELET COUNT 130 K/UL (150-450); RED BLOOD COUNT 2.53 M/UL (4.20-5.40); RED CELL DISTRIBUTION WIDTH 15.8 % (11.6-14.8); WHITE BLOOD COUNT 6.4 K/UL (4.8-10.8)
--- NOTE | 2018-11-23 12:15 | Consultation ---
Consult Note Consult Note Asked to eval for dialysis management 68 y old F to [facility]: abd discomfort and leg swelling o/e Weak pale suprapubic dullness and distension legs edema right >>> left fistula left arm . Assessment/Plan ESRD Urinary retention ? DVY right leg anemia h/o GI bleeding h/o UTI HTN hx of AR DM hypothyroidism Plan: licona: 2700 cc Urine out venous duplex HD labs Will contact Dr Mccray regarding follow up Pasquale Jacobo MD Nov 23, 2018 12:15
[2018-11-23 13:04] LABS: ALANINE AMINOTRANSFERASE 10 U/L (12-78); ALBUMIN 2.5 G/DL (3.4-5.0); ALBUMIN/GLOBULIN RATIO 0.8 (1.0-2.7); ALKALINE PHOSPHATASE 40 U/L (46-116); ANION GAP 14 mmol/L (5-15); ASPARTATE AMINO TRANSFERASE 8 U/L (15-37); BILIRUBIN,TOTAL 0.4 MG/DL (0.2-1.0); BLOOD UREA NITROGEN 67 mg/dL (7-18); CALCIUM 8.1 MG/DL (8.5-10.1); CARBON DIOXIDE 27 MMOL/L (21-32); CHLORIDE 106 MMOL/L (98-107); CREATININE 9.4 MG/DL (0.55-1.30); POTASSIUM 4.8 MMOL/L (3.5-5.1); SODIUM 147 MMOL/L (136-145)
[2018-11-23 13:07] LABS: PHOSPHORUS 7.2 MG/DL (2.5-4.9)
[2018-11-23 13:39] LABS: % IRON SATURATION 13 % (15-50); IRON 12 ug/dL (50-175); TOTAL IRON BINDING CAPACITY 93 ug/dL (250-450)
[2018-11-23 13:43] LABS: FERRITIN > 2000 NG/ML (8-388)
[2018-11-23] MEDS ORDERED: Amikacin Rx to dose MISC PRN (14:00)
[2018-11-23] MEDS ORDERED: Thiamine 100mg tab ORAL SCH (14:15)
[2018-11-23] MEDS ORDERED: Dextrose 50% 25ml Syringe IV PRN (14:15)
[2018-11-23] MEDS: Renvela 800mg Pkt ORAL SCH ×2 (14:21→18:00)
--- NOTE | 2018-11-23 14:30 | NUR ---
NURSE NOTES:WOUND CARE NOTES:Pt presented on admission with DTPI sacrum . Base of wound purple/indurated with non-blanchable erythema borders and periwound. Pt verbalized pain when minimally palpated. Pt verbalized history of pressure injuries to sacrum and buttocks. Maroon skin discoloration with scarring from previous pressure injuries noted to R and L cleft of buttocks .Pt denied tenderness when these areas palpated. Both heels are dry,blanchable and non-tender when minimally palpated. Recommendations: Apply Moisture Barrier paste to Sacrum. Cover with Optifoam drsg. Change every 3 days and prn. Apply Moisture Barrier Paste to R and L buttocks with each incontinence care. Apply Cavilon Skin BArrier to both heels. Cover each heel with Optifoam drsg. Change every 7 days and prn. Reposition at least every 2hours or as tolerated. Off-load heels with pillow.
--- NOTE | 2018-11-23 14:41 | Consultation ---
History of Present Illness General Date patient seen: Nov 23, 2018 Present Illness HPI 68 y/o F with hx of ESRD on HD via AVF, GIB, MDD, UTI, [place]/CAD, Dm2, hypothyroidism, assisted living facility resident presented to ED on 11/23 with abd discomfort, leg swelling, suprapubic distention and weakness Upon insertion of licona, pus was released. ID is consulted for UTi. Allergies: Coded Allergies: CODEINE (Verified Allergy, Unknown, 10/07/15) ERYTHROMYCIN BASE (Verified Allergy, Unknown, 10/07/15) Medication History Scheduled Aspirin* (Aspir 81*), 81 MG ORAL DAILY, (Reported) Atorvastatin Calcium* (Atorvastatin Calcium*), 40 MG ORAL BEDTIME, (Reported) Brimonidine Tartrate* (Alphagan*), 1 DROP BOTH EYES BID, (Reported) Cephalexin* (Keflex*), 250 MG ORAL EVERY 12 HOURS Docusate Sodium (Stool Softener), 100 MG PO BID, (Reported) Lamotrigine* (Lamictal*), 25 MG ORAL BID, (Reported) Levothyroxine Sodium (Synthroid), 50 MCG ORAL DAILY, (Reported) Moxifloxacin HCl (Vigamox), 1 DROP LEFT EYE FOUR TIMES A DAY, (Reported) Olanzapine (Olanzapine), 5 MG ORAL BEDTIME Risperidone* (Risperdal*), 1 MG PO HS, (Reported) Risperidone* (Risperdal*), 0.5 MG ORAL AM, (Reported) Sevelamer Carbonate* (Renvela*), 800 MG ORAL THREE TIMES A DAY, (Reported) Patient History Healthcare decision maker Resuscitation status Advanced Directive on File Yes Patient History Narrative Pmhx: as above Shx: reviewed Fhx: non contributory Physical Exam Laboratory Tests Test 11/23/18 12:00 White Blood Count 6.4 K/UL (4.8-10.8) Red Blood Count 2.53 M/UL (4.20-5.40) L Hemoglobin 7.6 G/DL (12.0-16.0) L Hematocrit 24.0 % (37.0-47.0) L Mean Corpuscular Volume 95 FL (80-99) Mean Corpuscular Hemoglobin 29.9 PG (27.0-31.0) Mean Corpuscular Hemoglobin Concent 31.6 G/DL (32.0-36.0) L Red Cell Distribution Width 15.8 % (11.6-14.8) H Platelet Count 130 K/UL (150-450) L Mean Platelet Volume 4.8 FL (6.5-10.1) L Neutrophils (%) (Auto) % (45.0-75.0) Lymphocytes (%) (Auto) % (20.0-45.0) Monocytes (%) (Auto) % (1.0-10.0) Eosinophils (%) (Auto) % (0.0-3.0) Basophils (%) (Auto) % (0.0-2.0) Differential Total Cells Counted 100 Neutrophils % (Manual) 78 % (45-75) H Lymphocytes % (Manual) 10 % (20-45) L Monocytes % (Manual) 9 % (1-10) Eosinophils % (Manual) 3 % (0-3) Basophils % (Manual) 0 % (0-2) Band Neutrophils 0 % (0-8) Platelet Estimate Decreased L Platelet Morphology Normal Hypochromasia 1+ Anisocytosis 1+ Sodium Level 147 MMOL/L (136-145) H Potassium Level 4.8 MMOL/L (3.5-5.1) Chloride Level 106 MMOL/L (98-107) Carbon Dioxide Level 27 MMOL/L (21-32) Anion Gap 14 mmol/L (5-15) Blood Urea Nitrogen 67 mg/dL (7-18) H Creatinine 9.4 MG/DL (0.55-1.30) H Estimat Glomerular Filtration Rate 4.2 mL/min (>60) Glucose Level 112 MG/DL (74-106) H Hemoglobin A1c 4.7 % (4.3-6.0) Calcium Level 8.1 MG/DL (8.5-10.1) L Phosphorus Level 7.2 MG/DL (2.5-4.9) H Magnesium Level 2.3 MG/DL (1.8-2.4) Iron Level 12 ug/dL (50-175) L Total Iron Binding Capacity 93 ug/dL (250-450) L Percent Iron Saturation 13 % (15-50) L Unsaturated Iron Binding 81 ug/dL (112-346) L Ferritin > 2000 NG/ML (8-388) H Total Bilirubin 0.4 MG/DL (0.2-1.0) Aspartate Amino Transf (AST/SGOT) 8 U/L (15-37) L Alanine Aminotransferase (ALT/SGPT) 10 U/L (12-78) L Alkaline Phosphatase 40 U/L (46-116) L Troponin I 0.000 ng/mL (0.000-0.056) Total Protein 5.7 G/DL (6.4-8.2) L Albumin 2.5 G/DL (3.4-5.0) L Globulin 3.2 g/dL Albumin/Globulin Ratio 0.8 (1.0-2.7) L Vitamin B12 Level 1043 PG/ML (193-986) H Folate 62.0 NG/ML (8.6-58.9) H Thyroid Stimulating Hormone (TSH) 0.515 uiU/mL (0.358-3.740) Medications Current Medications Medications (Trade) Dose Ordered Sig/Basil Route PRN Reason Start Time Stop Time Status Last Admin Dose Admin Acetaminophen (Tylenol) 650 mg Q4H PRN ORAL Fever 11/23/18 11:45 12/23/18 11:44 UNV Acetaminophen (Tylenol) 650 mg Q6H PRN ORAL Mild Pain/Temp > 100.5 11/23/18 14:00 12/23/18 13:59 UNV Albuterol/ Ipratropium (Albuterol/ Ipratropium) 3 ml EVERY 4 HOURS PRN HHN Shortness of Breath 11/23/18 11:45 11/28/18 11:44 UNV Amikacin Protocol (Amikacin pharmacy to dose) 1 ea DAILY PRN MISC Per rx protocol 11/23/18 14:00 12/23/18 13:59 UNV Aspirin (Ecotrin) 81 mg DAILY ORAL 11/24/18 09:00 12/24/18 08:59 UNV Atorvastatin Calcium (Lipitor) 40 mg BEDTIME ORAL 11/23/18 21:00 12/23/18 20:59 UNV Brimonidine Tartrate (Alphagan) 1 drop BID BOTH EYES 11/23/18 18:00 12/23/18 17:59 UNV Cefepime HCl 1 gm/ Dextrose 100 ml @ 100 mls/hr EVERY 12 HOURS IV 11/23/18 21:00 11/30/18 20:59 UNV Cyanocobalamin (Vitamin B12) 1,000 mcg ONCE ONCE IM 11/23/18 14:00 11/23/18 14:01 UNV Docusate Sodium (Colace) 100 mg TWICE A DAY ORAL 11/23/18 18:00 12/23/18 17:59 UNV Folic Acid (Folate) 1 mg DAILY ORAL 11/23/18 13:45 12/23/18 13:44 UNV Heparin Sodium (Porcine) (Heparin 5000 units/ml) 5,000 units EVERY 12 HOURS SUBQ 11/23/18 21:00 12/23/18 20:59 UNV Iron Sucrose 100 mg/Sodium Chloride 60 ml @ 240 mls/hr BEDTIME IVPB 11/23/18 21:00 11/27/18 21:14 UNV Levothyroxine Sodium (Synthroid) 50 mcg DAILY ORAL 11/24/18 09:00 12/24/18 08:59 UNV Olanzapine (ZyPREXA) 5 mg BEDTIME ORAL 11/23/18 21:00 12/23/18 20:59 UNV Ondansetron HCl (Zofran) 4 mg Q6H PRN IVP Nausea & Vomiting 11/23/18 11:45 12/23/18 11:44 UNV Pantoprazole (Protonix) 40 mg DAILY ORAL 11/23/18 12:30 12/23/18 12:29 UNV Polyethylene Glycol (Miralax) 17 gm DAILYPRN PRN ORAL Constipation 11/23/18 11:45 12/23/18 11:44 UNV Risperidone (RisperDAL) 1 mg BIOTEC ORAL 11/23/18 21:00 12/23/18 20:59 UNV Sevelamer Carbonate (Renvela) 800 mg THREE TIMES A DAY ORAL 11/23/18 13:00 12/23/18 12:59 UNV Temazepam (Restoril) 15 mg HSPRN PRN ORAL Insomnia 11/23/18 11:45 11/30/18 11:44 UNV Thiamine HCl (Vitamin B1) 100 mg DAILY ORAL 11/23/18 13:45 12/23/18 13:44 UNV Vancomycin HCl (Vanco rx to dose) 1 ea DAILY PRN MISC Per rx protocol 11/23/18 14:00 12/23/18 13:59 UNV Assessment/Plan Assessment/Plan: Abx: IV Vancomycin x1 11/23 Amikacin x1 11/23 Cefepime 11/23- Assessment: UTI/cystitis ( purulent discharge upon licona insertion) No leukocytosis ESRD on HD via AVF GIB MDD hx of UTI [place]/CAD Dm2 hypothyroidism assisted living facility resident Plan: -Continue empiric CEfepime #1 pending UCx -f/u cx -Monitor CBC/CMP, temperatures -u/a w/ reflex -aspiration precautions Thank you for this consultation. Will continue to follow along with you. Discussed with PRATIMA. Aline Martinez M.D. Nov 23, 2018 14:40
[2018-11-23] MEDS ORDERED: Vitamin B12 1000mcg/ml Inj IM SCH (16:00)
--- NOTE | 2018-11-23 16:03 | NUR ---
NURSE NOTES: Called Dr. Jacobo regarding pts low BP. SHe will get HD and BP may go down further. Per Dr. Jacobo, no ultrafiltration for HD and give 500 NS bolus and 500 albumin 5%. Orders noted and carried out. WIll continue to monitor pt. HD nurse notified of no ultrafiltration.
[2018-11-23 16:19] VITALS: BP 86/48
[2018-11-23] MEDS ORDERED: Vancomycin 1.25gm Premix IVPB SCH ×2 (17:00→21:00)
[2018-11-23] MEDS: Docusate 100mg cap ORAL SCH (18:00)
[2018-11-23] MEDS ORDERED: Docusate 100mg cap ORAL SCH ×2 (18:00)
[2018-11-23] MEDS: Brimonidine 0.2% Opth Sol BOTH EYES SCH (18:26)
--- NOTE | 2018-11-23 18:36 | Diagnostic Imaging Report ---
APPROVED REPORT CPT Code: 06457 Present Symptoms Lower Extremity Edema: BILATERAL: Imaging reveals a patent deep venous system bilaterally. There is no evidence of thrombus within the femoral, popliteal or tibial segments. The greater saphenous veins are also within normal limits. Doppler indicates normal spontaneous flow within these segments.
--- NOTE | 2018-11-23 19:01 | NUR ---
Patient tolerated HD well. HD Rn did not take anything out, 500 ml of Normal saline bolus and albumin given. B/P improved 96/57. Patient denies dizziness or discomfort . Patient to receive 1 unit of PRBC tonight. will follow
[2018-11-23 19:05] VITALS: BP 96/57
[2018-11-23 19:16] LABS: APPEARANCE,URINE TURBID; BILIRUBIN, URINE NEGATIVE (NEGATIVE); COLOR,URINE PALE YELLOW; GLUCOSE, URINE (UA) 1+ (NEGATIVE); KETONES,URINE NEGATIVE (NEGATIVE); LEUKOCYTE ESTERASE ,URINE 3+ (NEGATIVE); NITRITE,URINE NEGATIVE (NEGATIVE); PH,URINE 7 (4.5-8.0); PROTEIN,URINE 3+ (NEGATIVE); UROBILINOGEN,URINE NORMAL MG/DL (0.0-1.0)
--- NOTE | 2018-11-23 19:39 | NUR ---
HAND-OFF: Report given to Arabella Lu., Patient stable. Rn aware patient to receive 1 unit PRBC. plan of care endorsed.
[2018-11-23 20:00] VITALS: BP 87/49
--- NOTE | 2018-11-23 20:00 | NUR ---
NURSE NOTES: Received report from PRATIMA Hussein. Patient in bed resting. No complaints of pain at this time, noted bilateral swollen legs. 1 Unit of PRBC's to be given, AM shift held for PM shift. Will call lab and follow up.
[2018-11-23] MEDS ORDERED: Iron Sucrose 100 MG in NS 55 ML IV SCH (21:00)
[2018-11-23] MEDS ORDERED: Heparin 5000 units/ml inj SUBQ SCH (21:00)
[2018-11-23] MEDS ORDERED: Atorvastatin 20mg tab ORAL SCH (21:00)
[2018-11-23] MEDS: Epoetin Alfa-EPBX(ESRD on dialysis)10,000 unit/ml vial SUBQ SCH (22:56)
[2018-11-23] MEDS ORDERED: NS IV SCH (23:00)
[2018-11-23] MEDS ORDERED: AMIKACIN IV SCH (23:00)
[2018-11-24] VITALS: BP 90/52
[2018-11-24 04:00] VITALS: BP 98/55
[2018-11-24 07:19] LABS: BASOPHILS % (AUTO) 1.1 % (0.0-2.0); EOSINOPHILS % (AUTO) 2.4 % (0.0-3.0); HEMATOCRIT 25.2 % (37.0-47.0); HEMOGLOBIN 8.1 G/DL (12.0-16.0); LYMPHOCYTES % (AUTO) 16.2 % (20.0-45.0); MEAN CORPUSCULAR VOLUME 94 FL (80-99); MONOCYTES % (AUTO) 7.8 % (1.0-10.0); NEUTROPHILS % (AUTO) 72.6 % (45.0-75.0); PLATELET COUNT 123 K/UL (150-450); RED BLOOD COUNT 2.67 M/UL (4.20-5.40); RED CELL DISTRIBUTION WIDTH 15.4 % (11.6-14.8); WHITE BLOOD COUNT 6.1 K/UL (4.8-10.8)
--- NOTE | 2018-11-24 07:29 | NUR ---
HAND-OFF: Report given to PRATIMA Hussein. Patient in bed watching TV. Stable at Hand-off.
--- NOTE | 2018-11-24 07:31 | NUR ---
NURSE NOTES: Received report from Tabitha Bell. Patient seen in bed. Awake and alert. No c/o pain or discomfort. All safety precautions in place, Bed locked in lowest position, call light within patients reach. Will continue to monitor.
[2018-11-24 07:47] LABS: ALANINE AMINOTRANSFERASE < 6 U/L (12-78); ALBUMIN 2.5 G/DL (3.4-5.0); ALBUMIN/GLOBULIN RATIO 0.7 (1.0-2.7); ALKALINE PHOSPHATASE 34 U/L (46-116); ANION GAP 12 mmol/L (5-15); ASPARTATE AMINO TRANSFERASE 9 U/L (15-37); BILIRUBIN,TOTAL 0.4 MG/DL (0.2-1.0); BLOOD UREA NITROGEN 41 mg/dL (7-18); CALCIUM 8.5 MG/DL (8.5-10.1); CARBON DIOXIDE 31 MMOL/L (21-32); CHLORIDE 98 MMOL/L (98-107); CHOLESTEROL 124 MG/DL (< 200); CREATININE 6.5 MG/DL (0.55-1.30); HDL CHOLESTEROL 21 MG/DL (40-60); PHOSPHORUS 5.1 MG/DL (2.5-4.9); POTASSIUM 3.8 MMOL/L (3.5-5.1); SODIUM 141 MMOL/L (136-145); TRIGLYCERIDES 116 MG/DL (30-150)
[2018-11-24 08:00] VITALS: BP 129/49
[2018-11-24] MEDS: Docusate 100mg cap ORAL SCH ×3 (08:41→13:42)
[2018-11-24] MEDS: Aspirin EC 81mg tab ORAL SCH (08:41)
--- NOTE | 2018-11-24 08:45 | NUR ---
NURSE NOTES: Patient states that as she was being transferred from assisted living into the transport van via wheelchair when the person pushing her wheelchair pushed to fast and she fell to the ground. She states that she scraped her knees and that her left knee and ankle hurt. I asked her why she did not mention anything to me yesterday. She stated "I don't know". Will notify Dr. Renee.
[2018-11-24] MEDS: Brimonidine 0.2% Opth Sol BOTH EYES SCH ×2 (09:20→17:21)
[2018-11-24] MEDS: Renvela 800mg Pkt ORAL SCH ×3 (09:20→17:20)
--- NOTE | 2018-11-24 09:50 | NUR ---
NURSE NOTES: Md Galeano aware of fall. Orders noted and carried out. WIll continue to monitor.
[2018-11-24 12:00] VITALS: BP 114/36
--- NOTE | 2018-11-24 12:06 | General Progress Note ---
Progress Note Progress Note [id number] full note dictated Gwen Mccray MD Nov 24, 2018 12:06
--- NOTE | 2018-11-24 13:21 | Diagnostic Imaging Report ---
Indication: left ankle pain Comparison: None Findings: 3 views of the left ankle obtained. There is a moderate degree of soft tissue swelling in the lateral part of the ankle and hindfoot. No acute fracture, malalignment, periostitis, or osteochondral defects are identified. Impression: No acute fracture. Moderate lateral soft tissue swelling
--- NOTE | 2018-11-24 13:22 | Diagnostic Imaging Report ---
Indication: Foot Pain Comparison: None Findings: 3 views of the right foot were obtained. No acute fractures, malalignment, erosions or periostitis are identified. Bones are osteopenic. Soft tissue swelling noted. Impression: No fracture identified. Soft tissue swelling
--- NOTE | 2018-11-24 13:31 | Diagnostic Imaging Report ---
INDICATION: Knee Pain COMPARISON: None 3 views of the left knee were obtained. FINDINGS: No acute fracture, malalignment, or joint effusion are identified. Bones are osteopenic. There is a generalized narrowing of the joint space consistent with osteoarthritis. Impression: Negative for acute injury
--- NOTE | 2018-11-24 13:39 | NUR ---
RADIOLOGY DEPT., RIGHT FOOT, LEFT KNEE AND ANKLE X-RAYS COMPLETED.AALIYAH
--- NOTE | 2018-11-24 14:03 | Infectious Diseases Prog Note ---
Assessment/Plan Assessment/Plan Assessment: UTI/cystitis ( purulent discharge upon licona insertion) -u/a wbc tnct, nit -, leuk +3; ucx NTD No leukocytosis Afebrile ESRD on HD via AVF GIB MDD hx of UTI [place]/CAD Dm2 hypothyroidism assisted living facility resident Plan: -Continue empiric CEfepime #2 pending UCx -11/23 SP IV Vancomycin x1, Amikacin x1 -f/u cx -Monitor CBC/CMP, temperatures -aspiration precautions Thank you for this consultation. Will continue to follow along with you. Discussed with RN. Subjective Allergies: Coded Allergies: CODEINE (Verified Allergy, Unknown, 10/07/15) ERYTHROMYCIN BASE (Verified Allergy, Unknown, 10/07/15) Objective Vital Signs Last 24 Hour Vital Signs Date Time Temp Pulse Resp B/P (MAP) Pulse Ox O2 Delivery O2 Flow Rate FiO2 11/24/18 12:00 64 11/24/18 12:00 98.9 82 18 114/36 (62) 92 11/24/18 09:00 Room Air 11/24/18 08:00 73 11/24/18 08:00 96.3 74 18 129/49 (75) 95 11/24/18 04:00 63 11/24/18 04:00 98.4 67 20 98/55 (69) 94 11/24/18 00:00 98.1 69 20 90/52 (65) 94 11/24/18 00:00 69 11/23/18 21:00 Room Air 11/23/18 20:40 70 18 96 Room Air 21 11/23/18 20:00 99.3 74 20 87/49 (62) 92 11/23/18 20:00 76 11/23/18 19:05 98.1 73 16 96/57 (70) 96 11/23/18 16:19 97.6 74 18 86/48 (61) 94 11/23/18 15:33 Room Air Height (Feet): 5 Height (Inches): 7.00 Weight (Pounds): 139 Objective General Appearance: cachetic, thin Lines, tubes and drains: peripheral HEENT: normocephalic, atraumatic Neck: non-tender, supple Respiratory/Chest: chest wall non-tender, lungs clear Cardiovascular/Chest: normal rate Abdomen: normal bowel sounds, non tender Extremities: normal range of motion Skin Exam: normal pigmentation Neurologic: tunneller II-XII grossly normal Microbiology Date/Time Source Procedure Growth Status 11/23/18 18:40 Urine,Clean Catch Urine Culture - Preliminary NO GROWTH Resulted Laboratory Tests Test 11/23/18 15:50 11/23/18 18:40 11/24/18 06:40 11/24/18 12:10 Hepatitis B Surface Antigen Negative (NEGATIVE) Urine Color Pale yellow Urine Appearance Turbid Urine pH 7 (4.5-8.0) Urine Specific [place] 1.010 (1.005-1.035) Urine Protein 3+ (NEGATIVE) H Urine Glucose (UA) 1+ (NEGATIVE) H Urine Ketones Negative (NEGATIVE) Urine Blood 5+ (NEGATIVE) H Urine Nitrite Negative (NEGATIVE) Urine Bilirubin Negative (NEGATIVE) Urine Urobilinogen Normal MG/DL (0.0-1.0) Urine Leukocyte Esterase 3+ (NEGATIVE) H Urine RBC Tntc /HPF (0 - 2) H Urine WBC Tntc /HPF (0 - 2) H Urine Squamous Epithelial Cells None /LPF (NONE/OCC) Urine Bacteria Many /HPF (NONE) H White Blood Count 6.1 K/UL (4.8-10.8) Red Blood Count 2.67 M/UL (4.20-5.40) L Hemoglobin 8.1 G/DL (12.0-16.0) L Hematocrit 25.2 % (37.0-47.0) L Mean Corpuscular Volume 94 FL (80-99) Mean Corpuscular Hemoglobin 30.4 PG (27.0-31.0) Mean Corpuscular Hemoglobin Concent 32.3 G/DL (32.0-36.0) Red Cell Distribution Width 15.4 % (11.6-14.8) H Platelet Count 123 K/UL (150-450) L Mean Platelet Volume 5.7 FL (6.5-10.1) L Neutrophils (%) (Auto) 72.6 % (45.0-75.0) Lymphocytes (%) (Auto) 16.2 % (20.0-45.0) L Monocytes (%) (Auto) 7.8 % (1.0-10.0) Eosinophils (%) (Auto) 2.4 % (0.0-3.0) Basophils (%) (Auto) 1.1 % (0.0-2.0) Sodium Level 141 MMOL/L (136-145) Potassium Level 3.8 MMOL/L (3.5-5.1) Chloride Level 98 MMOL/L (98-107) Carbon Dioxide Level 31 MMOL/L (21-32) Anion Gap 12 mmol/L (5-15) Blood Urea Nitrogen 41 mg/dL (7-18) H Creatinine 6.5 MG/DL (0.55-1.30) H Estimat Glomerular Filtration Rate 6.4 mL/min (>60) Glucose Level 88 MG/DL (74-106) Uric Acid 4.6 MG/DL (2.6-7.2) Calcium Level 8.5 MG/DL (8.5-10.1) Phosphorus Level 5.1 MG/DL (2.5-4.9) H Magnesium Level 2.0 MG/DL (1.8-2.4) Total Bilirubin 0.4 MG/DL (0.2-1.0) Aspartate Amino Transf (AST/SGOT) 9 U/L (15-37) L Alanine Aminotransferase (ALT/SGPT) < 6 U/L (12-78) L Alkaline Phosphatase 34 U/L (46-116) L C-Reactive Protein, Quantitative 20.6 mg/dL (0.00-0.90) H Pro-B-Type Natriuretic Peptide 4475 pg/mL (0-125) H Total Protein 5.9 G/DL (6.4-8.2) L Albumin 2.5 G/DL (3.4-5.0) L Globulin 3.4 g/dL Albumin/Globulin Ratio 0.7 (1.0-2.7) L Prealbumin Pending Triglycerides Level 116 MG/DL (30-150) Cholesterol Level 124 MG/DL (< 200) LDL Cholesterol 81 mg/dL (<100) HDL Cholesterol 21 MG/DL (40-60) L Cholesterol/HDL Ratio 5.9 (3.3-4.4) H Troponin I 0.000 ng/mL (0.000-0.056) Current Medications Medications (Trade) Dose Ordered Sig/Basil Route PRN Reason Start Time Stop Time Status Last Admin Dose Admin Acetaminophen (Tylenol) 650 mg Q4H PRN ORAL Fever 11/23/18 11:45 12/23/18 11:44 11/23/18 22:55 Acetaminophen (Tylenol) 650 mg Q6H PRN ORAL Mild Pain 11/23/18 14:00 12/23/18 13:59 Albuterol/ Ipratropium (Albuterol/ Ipratropium) 3 ml Q4H PRN HHN Shortness of Breath 11/23/18 11:45 11/28/18 11:44 Aspirin (Ecotrin) 81 mg DAILY ORAL 11/24/18 09:00 12/24/18 08:59 11/24/18 08:41 Brimonidine Tartrate (Alphagan) 1 drop BID BOTH EYES 11/23/18 18:00 12/23/18 17:59 11/24/18 09:20 Cefepime HCl 1 gm/ Dextrose 100 ml @ 100 mls/hr Q24H IVPB 11/23/18 21:00 11/30/18 20:59 11/23/18 22:56 Dextrose (Dextrose 50%) 25 ml Q30M PRN IV Hypoglycemia 11/23/18 14:15 12/23/18 14:12 Dextrose (Dextrose 50%) 50 ml Q30M PRN IV hypoglycemia 11/23/18 14:15 12/23/18 14:14 Docusate Sodium (Colace) 100 mg THREE TIMES A DAY ORAL 11/23/18 18:00 12/23/18 17:59 11/24/18 13:42 Epoetin Syd (Epoetin Syd(ESRD on dialysis)) 10,000 unit WED-WED-WED SUBQ 11/23/18 21:00 12/23/18 20:59 11/23/18 22:56 Levothyroxine Sodium (Synthroid) 50 mcg Q24H ORAL 11/24/18 06:30 12/24/18 06:29 11/24/18 06:42 Olanzapine (ZyPREXA) 5 mg BEDTIME ORAL 11/23/18 21:00 12/23/18 20:59 11/23/18 22:54 Ondansetron HCl (Zofran) 4 mg Q6H PRN IVP Nausea & Vomiting 11/23/18 11:45 12/23/18 11:44 Pantoprazole (Protonix) 40 mg DAILY ORAL 11/23/18 14:15 12/23/18 14:14 11/24/18 08:41 Polyethylene Glycol (Miralax) 17 gm DAILYPRN PRN ORAL Constipation 11/23/18 11:45 12/23/18 11:44 Risperidone (RisperDAL) 1 mg BIOTEC ORAL 11/23/18 21:00 12/23/18 20:59 11/23/18 22:54 Sevelamer Carbonate (Renvela) 800 mg THREE TIMES A DAY ORAL 11/23/18 14:14 12/23/18 14:13 11/24/18 13:41 Temazepam (Restoril) 15 mg HSPRN PRN ORAL Insomnia 11/23/18 11:45 11/30/18 11:44 11/23/18 22:54 Aline Martinez M.D. Nov 24, 2018 14:03
--- NOTE | 2018-11-24 15:50 | NUR ---
NURSE NOTES: Call out to [facility] dialysis to confirm patients HD schedule tomorrow. spoke to answering service stated they will notify Nurse Ricardo. Noted
--- NOTE | 2018-11-24 15:58 | NUR ---
CASE MANAGEMENT:REVIEW 68 YR OLD FEMALE FROM ASSISTED LIVING CC: LE EDEMA PMH: ESRD ON HD SI:UTI 98.9 76 16 91/55 94% ON RA H/H-7.6/24.0 PLT-130 BUN+67 CR+9.4 IS: 500CC NS BOLUS IV ALBUMIN IV VANCOMYCIN X1 : TO TELEMETRY IS: TRANSFUSE 1 UNIT PRBC'S INTERQUAL CRITERIA MET
[2018-11-24 16:00] VITALS: BP 129/51
--- NOTE | 2018-11-24 16:28 | Pulmonology Progress Note ---
Assessment/Plan Problems: (1) UTI (urinary tract infection) (2) Severe anemia (3) ESRD (end stage renal disease) on dialysis (4) Hypothyroidism (5) HTN (hypertension) Assessment/Plan iv abx check cultures prbc one unit yesterday dc when culture results available doppler of leg was negative. Subjective ROS Limited/Unobtainable: No Constitutional: Reports: no symptoms HEENT: Repors: no symptoms Respiratory: Reports: no symptoms Cardiovascular: Reports: no symptoms Gastrointestinal/Abdominal: Reports: no symptoms Allergies: Coded Allergies: CODEINE (Verified Allergy, Unknown, 10/07/15) ERYTHROMYCIN BASE (Verified Allergy, Unknown, 10/07/15) Objective Last 24 Hour Vital Signs Date Time Temp Pulse Resp B/P (MAP) Pulse Ox O2 Delivery O2 Flow Rate FiO2 11/24/18 16:10 98.9 11/24/18 12:00 64 11/24/18 12:00 98.9 82 18 114/36 (62) 92 11/24/18 09:00 Room Air 11/24/18 08:00 73 11/24/18 08:00 96.3 74 18 129/49 (75) 95 11/24/18 04:00 63 11/24/18 04:00 98.4 67 20 98/55 (69) 94 11/24/18 00:00 98.1 69 20 90/52 (65) 94 11/24/18 00:00 69 11/23/18 21:00 Room Air 11/23/18 20:40 70 18 96 Room Air 21 11/23/18 20:00 99.3 74 20 87/49 (62) 92 11/23/18 20:00 76 11/23/18 19:05 98.1 73 16 96/57 (70) 96 Intake and Output 11/23/18 11/24/18 19:00 07:00 Intake Total 120 ml 460 ml Output Total 100 ml Balance 120 ml 360 ml Intake Oral 120 ml 60 ml IV Total 100 ml Blood Product 300 ml Output Urine Total 100 ml # Bowel Movements 1 Objective General Appearance: WD/WN HEENT: normocephalic, atraumatic Respiratory/Chest: chest wall non-tender, lungs clear, normal breath sounds Breasts: no masses Cardiovascular: normal peripheral pulses, normal rate Abdomen: normal bowel sounds, soft, non tender Genitourinary: normal external genitalia Extremities: no cyanosis 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 Microbiology Date/Time Source Procedure Growth Status 11/23/18 18:40 Urine,Clean Catch Urine Culture - Preliminary NO GROWTH Resulted Laboratory Tests 11/23/18 18:40: Urine Color Pale yellow, Urine Appearance Turbid, Urine pH 7, Urine Specific [place] 1.010, Urine Protein 3+H, Urine Glucose (UA) 1+H, Urine Ketones Negative , Urine Blood 5+H, Urine Nitrite Negative, Urine Bilirubin Negative, Urine Urobilinogen Normal, Urine Leukocyte Esterase 3+H, Urine RBC TntcH, Urine WBC TntcH, Urine Squamous Epithelial Cells None, Urine Bacteria ManyH 11/24/18 06:40: White Blood Count 6.1, Red Blood Count 2.67L, Hemoglobin 8.1L, Hematocrit 25.2L , Mean Corpuscular Volume 94, Mean Corpuscular Hemoglobin 30.4, Mean Corpuscular Hemoglobin Concent 32.3, Red Cell Distribution Width 15.4H, Platelet Count 123L, Mean Platelet Volume 5.7L, Neutrophils (%) (Auto) 72.6, Lymphocytes (%) (Auto) 16.2L, Monocytes (%) (Auto) 7.8, Eosinophils (%) (Auto) 2.4, Basophils (%) (Auto) 1.1, Sodium Level 141, Potassium Level 3.8, Chloride Level 98, Carbon Dioxide Level 31, Anion Gap 12, Blood Urea Nitrogen 41H, Creatinine 6.5H, Estimat Glomerular Filtration Rate 6.4, Glucose Level 88, Uric Acid 4.6, Calcium Level 8.5, Phosphorus Level 5.1H, Magnesium Level 2.0, Total Bilirubin 0.4, Aspartate Amino Transf (AST/SGOT) 9L, Alanine Aminotransferase ( ALT/SGPT) < 6L, Alkaline Phosphatase 34L, C-Reactive Protein, Quantitative 20.6H , Pro-B-Type Natriuretic Peptide 4475H, Total Protein 5.9L, Albumin 2.5L, Globulin 3.4, Albumin/Globulin Ratio 0.7L, Prealbumin [Pending], Triglycerides Level 116, Cholesterol Level 124, LDL Cholesterol 81, HDL Cholesterol 21L, Cholesterol/HDL Ratio 5.9H 11/24/18 12:10: Troponin I 0.000 Current Medications Medications (Trade) Dose Ordered Sig/Basil Route PRN Reason Start Time Stop Time Status Last Admin Dose Admin Acetaminophen (Tylenol) 650 mg Q4H PRN ORAL Fever 11/23/18 11:45 12/23/18 11:44 11/24/18 15:23 Acetaminophen (Tylenol) 650 mg Q6H PRN ORAL Mild Pain 11/23/18 14:00 12/23/18 13:59 Albuterol/ Ipratropium (Albuterol/ Ipratropium) 3 ml Q4H PRN HHN Shortness of Breath 11/23/18 11:45 11/28/18 11:44 Aspirin (Ecotrin) 81 mg DAILY ORAL 11/24/18 09:00 12/24/18 08:59 11/24/18 08:41 Brimonidine Tartrate (Alphagan) 1 drop BID BOTH EYES 11/23/18 18:00 12/23/18 17:59 11/24/18 09:20 Cefepime HCl 1 gm/ Dextrose 100 ml @ 100 mls/hr Q24H IVPB 11/23/18 21:00 11/30/18 20:59 11/23/18 22:56 Dextrose (Dextrose 50%) 25 ml Q30M PRN IV Hypoglycemia 11/23/18 14:15 12/23/18 14:12 Dextrose (Dextrose 50%) 50 ml Q30M PRN IV hypoglycemia 11/23/18 14:15 12/23/18 14:14 Docusate Sodium (Colace) 100 mg THREE TIMES A DAY ORAL 11/23/18 18:00 12/23/18 17:59 11/24/18 13:42 Epoetin Syd (Epoetin Syd(ESRD on dialysis)) 10,000 unit WED-WED-WED SUBQ 11/23/18 21:00 12/23/18 20:59 11/23/18 22:56 Levothyroxine Sodium (Synthroid) 50 mcg Q24H ORAL 11/24/18 06:30 12/24/18 06:29 11/24/18 06:42 Olanzapine (ZyPREXA) 5 mg BEDTIME ORAL 11/23/18 21:00 12/23/18 20:59 11/23/18 22:54 Ondansetron HCl (Zofran) 4 mg Q6H PRN IVP Nausea & Vomiting 11/23/18 11:45 12/23/18 11:44 Pantoprazole (Protonix) 40 mg DAILY ORAL 11/23/18 14:15 12/23/18 14:14 11/24/18 08:41 Polyethylene Glycol (Miralax) 17 gm DAILYPRN PRN ORAL Constipation 11/23/18 11:45 12/23/18 11:44 Risperidone (RisperDAL) 1 mg BIOTEC ORAL 11/23/18 21:00 12/23/18 20:59 11/23/18 22:54 Sevelamer Carbonate (Renvela) 800 mg THREE TIMES A DAY ORAL 11/23/18 14:14 12/23/18 14:13 11/24/18 13:41 Temazepam (Restoril) 15 mg HSPRN PRN ORAL Insomnia 11/23/18 11:45 11/30/18 11:44 11/23/18 22:54 Sarah Renee MD Nov 24, 2018 16:28
--- NOTE | 2018-11-24 16:40 | NUR ---
NURSE NOTES: Called [facility] to clarify HD order. HD is for Wednesday11/26/18. Per answering services they will let HD nurse know
--- NOTE | 2018-11-24 17:45 | Consultation ---
DATE OF CONSULTATION: 11/24/2018 NEPHROLOGY CONSULTATION CONSULTING PHYSICIAN: Gwen Mccray M.D. HISTORY OF PRESENT ILLNESS: The patient is a 68-year-old well known to me with past medical history significant for history of end-stage renal disease, anemia of chronic kidney disease, and renal osteodystrophy. Apparently, the patient was at assisted living and was going to be transferred to a dialysis unit. The patient was on the wheelchair and there was no footrest on the wheelchair. Wheelchair got unstable and she fell on her both knee. She was brought into the emergency room. In the ER, the patient was found to have an increasing abdominal distention, which for that the patient found to have an urinary obstruction. Flores catheter was placed. The patient also was evaluated for possible DVT because of the lower extremity edema. DVT was negative. The patient received one dialysis. Her lower extremity swelling got better. Today, she is alert and awake. She continues to have bilateral knee and also complaining of right foot pain. The patient originally yesterday was seen by Dr. Jacobo who transferred the care to me since the patient is in my outpatient practice. PAST MEDICAL HISTORY: End-stage renal disease, anemia of chronic kidney disease, renal osteodystrophy, and hypertension. MEDICATIONS: 1. Aspirin. 2. Atorvastatin. 3. . 4. Keflex. 5. Lamotrigine. 6. Levothyroxine. 7. Risperdal. 8. Renagel. SOCIAL HISTORY: She lives at assisted. PHYSICAL EXAMINATION: VITAL SIGNS: The patient has a temperature of 98, blood pressure of 90/52, and pulse rate of 63. HEAD AND NECK: Bitemporal wasting. Sclerae pale. Extraocular movement intact. Pupils are reactive to light and accommodation. LUNGS: Clear to auscultation. CARDIAC: Regular rate and rhythm. S1-S2. No murmur. No rub. ABDOMEN: Soft, nontender, and nondistended. EXTREMITIES: Bilateral lower extremity edema, right more than left and she has tenderness in both knees and also tenderness on her right foot and increasing swelling on the right thigh. LABORATORY DATA: Revealed WBC count of 6.1, hemoglobin of 8.1, hematocrit of 25, and platelet count of 123,000. Chemistry reveals sodium 141, potassium 3.8, chloride 98, BUN 41, and creatinine 6.5. Phosphorus 5.1. Magnesium 2.1. AST of 9, ALT of less than 6, and alkaline phosphatase of 34. The patient has albumin of 2.5. ASSESSMENT AND PLAN: 1. End-stage renal disease. 2. Anemia of chronic kidney disease, to be started Epogen. Her iron saturation is 13, so the patient definitely will benefit from IV iron. The other possibility is malnutrition, for that I need to check a pre-albumin level. 3. Renal osteodystrophy. For that I need to check the calcium, phosphorus, and PTH. 4. Status post fall and right foot swelling. For that I would recommend the patient to get an x-ray and follow up with primary physician, Dr. Loyd Renee. I would continue to follow along the patient. Gwen Mccray M.D. DR: GENE JOB#: [id number] CC:
--- NOTE | 2018-11-24 19:45 | NUR ---
NURSE NOTES: Received pt and report from PRATIMA Yo. Observed pt resting in bed with both eyes open and watching television. Pt is A/Ox4. technical services consultant is in placed, IV site intact, asymptomatic and patent. Bed is in the lowest position and locked. Call light within reach. No signs/symptoms of acute distress noted at this time. Will continue plan of care.
--- NOTE | 2018-11-24 19:56 | NUR ---
HAND-OFF: Report given to Tabitha Chowdhury.Patient stable. Plan of car endorsed
[2018-11-24 20:00] VITALS: BP 128/63
[2018-11-25] VITALS: BP 142/66
[2018-11-25 04:00] VITALS: BP 141/75
--- NOTE | 2018-11-25 07:34 | NUR ---
NURSE NOTES: Report received from PRATIMA Chowdhury. Pt shows no signs of distress, A+Ox4, denies pain/SOB. Respirations are even and unlabored on room air. IV site is patent and saline locked. Pt to have HD tomorrow. Flores is in place and draining to gravity at foot of bed. Bed is at lowest position, brakes engaged, siderails x2, bed alarm on, and call light within reach. Pt is in stable condition; will continue to monitor.
--- NOTE | 2018-11-25 07:42 | NUR ---
NURSE NOTES: Report given to PRATIMA Peng.
[2018-11-25 08:00] VITALS: BP 132/59
[2018-11-25] MEDS: Docusate 100mg cap ORAL SCH ×4 (08:18→17:39)
[2018-11-25] MEDS: Aspirin EC 81mg tab ORAL SCH (08:18)
[2018-11-25] MEDS: Renvela 800mg Pkt ORAL SCH ×3 (08:19→17:39)
[2018-11-25] MEDS: Brimonidine 0.2% Opth Sol BOTH EYES SCH ×2 (08:19→17:39)
--- NOTE | 2018-11-25 09:42 | Nephrology Progress Note ---
Assessment/Plan Assessment 1.ESRD 2ROD 3.anemia of CKD 4.HTN 5.S/P fall Plan dialysis today continue epogen continue renagel PT/OT Subjective Subjective alert and awake feeling better on hemodialysis Objective Objective Last 24 Hour Vital Signs Date Time Temp Pulse Resp B/P (MAP) Pulse Ox O2 Delivery O2 Flow Rate FiO2 11/25/18 08:00 98.4 81 18 132/59 (83) 93 11/25/18 04:00 97.4 77 19 141/75 (97) 96 11/25/18 04:00 66 11/25/18 00:00 71 11/25/18 00:00 98.0 67 18 142/66 (91) 98 11/24/18 21:00 Room Air 11/24/18 20:00 65 11/24/18 20:00 98.0 65 18 128/63 (84) 98 11/24/18 16:10 98.9 11/24/18 16:00 69 11/24/18 16:00 97.1 68 20 129/51 (77) 94 11/24/18 12:00 64 11/24/18 12:00 98.9 82 18 114/36 (62) 92 Intake and Output 11/24/18 11/25/18 19:00 07:00 Intake Total 120 ml Output Total 250 ml Balance -130 ml Intake Oral 120 ml Output Urine Total 250 ml # Bowel Movements 1 1 Laboratory Tests 11/24/18 12:10: Troponin I 0.000 Height (Feet): 5 Height (Inches): 7.00 Weight (Pounds): 139 Objective HEAD AND NECK: Bitemporal wasting. Sclerae pale. Extraocular movement intact. Pupils are reactive to light and accommodation. LUNGS: Clear to auscultation. CARDIAC: Regular rate and rhythm. S1-S2. No murmur. No rub. ABDOMEN: Soft, nontender, and nondistended. EXTREMITIES: Bilateral lower extremity edema, right more than left and she has tenderness in both knees and also tenderness on her right foot and increasing swelling on the right thigh. Gwen Mccray MD Nov 25, 2018 09:42
[2018-11-25 12:00] VITALS: BP 119/55
[2018-11-25] MEDS ORDERED: CEFDINIR300 MG PO (12:10)
--- NOTE | 2018-11-25 12:20 | NUR ---
RD ASSESSMENT & RECOMMENDATIONS SEE CARE ACTIVITY FOR COMPLETE ASSESSMENT DAILY ESTIMATED NEEDS: Needs based on ESRD on HD, wound 63kg 30-35 kcals/kg 5660-1473 total kcals 1.25-1.8 g protein/kg 79-113 g total protein Fluid per MD, on HD NUTRITION DIAGNOSIS: Increased KCAL and protein needs R/T renal dysfunction, ESRD and wound healing as evidenced by pt w/ ESRD on HD, w/ sacral DTPI. PO DIET RECOMMENDATIONS: RENAL DIET ADDITIONAL RECOMMENDATIONS: 1) Obtain a calibrated bed scale wt as able 2) Add NEPRO 1 tetra jm daily Add snacks in b/w meals 3) Wound care: add CLAIRE BID + Nephrovite daily
--- NOTE | 2018-11-25 12:59 | NUR ---
NURSE NOTES: Sandra d/roscoe
--- NOTE | 2018-11-25 13:03 | NUR ---
NURSE NOTES: Dialysis nurse with patient.
[2018-11-25 16:00] VITALS: BP 133/69
--- NOTE | 2018-11-25 16:00 | Infectious Diseases Prog Note ---
Assessment/Plan Assessment/Plan Assessment: UTI/cystitis ( purulent discharge upon licona insertion) -u/a wbc tnct, nit -, leuk +3; ucx NTD No leukocytosis Afebrile ESRD on HD via AVF GIB MDD hx of UTI HI/CAD Dm2 hypothyroidism assisted living facility resident Plan: -On empiric CEfepime #3 for UTI -ok to discharge on PO Cefdinir 300mg q48hrs for 4 more days -11/23 SP IV Vancomycin x1, Amikacin x1 -f/u cx -Monitor CBC/CMP, temperatures -aspiration precautions Thank you for this consultation. Will continue to follow along with you. Discussed with RN and Dr Renee Subjective Allergies: Coded Allergies: CODEINE (Verified Allergy, Unknown, 10/07/15) ERYTHROMYCIN BASE (Verified Allergy, Unknown, 10/07/15) Subjective afebrile no leukcoytosis UCX NTD Objective Vital Signs Last 24 Hour Vital Signs Date Time Temp Pulse Resp B/P (MAP) Pulse Ox O2 Delivery O2 Flow Rate FiO2 11/25/18 12:00 98.6 65 20 119/55 (76) 97 11/25/18 09:00 Room Air 11/25/18 08:00 98.4 81 18 132/59 (83) 93 11/25/18 08:00 77 11/25/18 04:00 97.4 77 19 141/75 (97) 96 11/25/18 04:00 66 11/25/18 00:00 71 11/25/18 00:00 98.0 67 18 142/66 (91) 98 11/24/18 21:00 Room Air 11/24/18 20:00 65 11/24/18 20:00 98.0 65 18 128/63 (84) 98 11/24/18 16:10 98.9 11/24/18 16:00 69 11/24/18 16:00 97.1 68 20 129/51 (77) 94 Height (Feet): 5 Height (Inches): 7.00 Weight (Pounds): 139 Objective General Appearance: cachetic, thin Lines, tubes and drains: peripheral HEENT: normocephalic, atraumatic Neck: non-tender, supple Respiratory/Chest: chest wall non-tender, lungs clear Cardiovascular/Chest: normal rate Abdomen: normal bowel sounds, non tender Extremities: normal range of motion Skin Exam: normal pigmentation Neurologic: 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 normal Microbiology Date/Time Source Procedure Growth Status 11/23/18 18:40 Urine,Clean Catch Urine Culture - Preliminary NO GROWTH AFTER 24 HOURS Resulted Laboratory Tests Test 11/25/18 11:45 Troponin I 0.001 ng/mL (0.000-0.056) Current Medications Medications (Trade) Dose Ordered Sig/Basil Route PRN Reason Start Time Stop Time Status Last Admin Dose Admin Acetaminophen (Tylenol) 650 mg Q4H PRN ORAL Fever 11/23/18 11:45 12/23/18 11:44 11/24/18 15:23 Acetaminophen (Tylenol) 650 mg Q6H PRN ORAL Mild Pain 11/23/18 14:00 12/23/18 13:59 Albuterol/ Ipratropium (Albuterol/ Ipratropium) 3 ml Q4H PRN HHN Shortness of Breath 11/23/18 11:45 11/28/18 11:44 Aspirin (Ecotrin) 81 mg DAILY ORAL 11/24/18 09:00 12/24/18 08:59 11/25/18 08:18 Brimonidine Tartrate (Alphagan) 1 drop BID BOTH EYES 11/23/18 18:00 12/23/18 17:59 11/25/18 08:19 Cefepime HCl 1 gm/ Dextrose 100 ml @ 100 mls/hr Q24H IVPB 11/23/18 21:00 11/30/18 20:59 11/24/18 21:04 Dextrose (Dextrose 50%) 25 ml Q30M PRN IV Hypoglycemia 11/23/18 14:15 12/23/18 14:12 Dextrose (Dextrose 50%) 50 ml Q30M PRN IV hypoglycemia 11/23/18 14:15 12/23/18 14:14 Docusate Sodium (Colace) 100 mg THREE TIMES A DAY ORAL 11/23/18 18:00 12/23/18 17:59 11/24/18 13:42 Epoetin Syd (Epoetin Syd(ESRD on dialysis)) 10,000 unit MON-WED-WED SUBQ 11/23/18 21:00 12/23/18 20:59 11/23/18 22:56 Levothyroxine Sodium (Synthroid) 50 mcg Q24H ORAL 11/24/18 06:30 12/24/18 06:29 11/25/18 05:55 Olanzapine (ZyPREXA) 5 mg BEDTIME ORAL 11/23/18 21:00 12/23/18 20:59 11/23/18 22:54 Ondansetron HCl (Zofran) 4 mg Q6H PRN IVP Nausea & Vomiting 11/23/18 11:45 12/23/18 11:44 Pantoprazole (Protonix) 40 mg DAILY ORAL 11/23/18 14:15 12/23/18 14:14 11/25/18 08:18 Polyethylene Glycol (Miralax) 17 gm DAILYPRN PRN ORAL Constipation 11/23/18 11:45 12/23/18 11:44 Risperidone (RisperDAL) 1 mg BIOTEC ORAL 11/23/18 21:00 12/23/18 20:59 11/24/18 21:04 Sevelamer Carbonate (Renvela) 800 mg THREE TIMES A DAY ORAL 11/23/18 14:14 12/23/18 14:13 11/25/18 12:52 Temazepam (Restoril) 15 mg HSPRN PRN ORAL Insomnia 11/23/18 11:45 11/30/18 11:44 11/23/18 22:54 Aline Martinez M.D. Nov 25, 2018 16:00
--- NOTE | 2018-11-25 16:17 | NUR ---
NURSE NOTES: 2 L out during dialysis. Called [facility] for transportation back to [facility]. They will be here at 1710. Assisted Living called and they are awaiting patient's arrival. Waiting for patient to void before discharge.
--- NOTE | 2018-11-25 16:51 | NUR ---
NURSE NOTES: Pt aware that she cannot be discharged until she voids. Gave the patient cranberry juice and water. She said "you're ridiculous for not letting me leave until I pee." I told her it was for her safety that she voids before leaving. She doesn't want to drink the juice. [facility]
--- NOTE | 2018-11-25 18:40 | NUR ---
NURSE NOTES: Pt voided very little. Bladder scan showed [address] Renee who said that it was okay to discharge her because she is oliguric. [facility] will be here at 1900.
--- NOTE | 2018-11-25 19:15 | NUR ---
NURSE NOTES: Received patient from Ginette ANDUJAR. Patient in bed, awake, alert, oriented, on room air, no s/s respiratory distress. Awaiting [facility] for discharge to assisted living.
--- NOTE | 2018-11-25 19:17 | NUR ---
HAND-OFF: Report given to PRATIMA Bray. Pt is in stable condition; plan of care endorsed.
[2018-11-25 20:00] VITALS: BP 104/60
[2018-11-25] MEDS: Epoetin Alfa-EPBX(ESRD on dialysis)10,000 unit/ml vial SUBQ SCH (20:29)
--- NOTE | 2018-11-25 20:55 | NUR ---
NURSE NOTES: [facility] arrived to pick remover patient. Report given to EMT. Arm band off. Monitor off. IV off.
[2018-11-25] MEDS ORDERED: Tubing IV Blood Pump IV ONE (21:14)
--- NOTE | 2018-11-25 21:15 | NUR ---
NURSE NOTES: [facility] left with the patient.
== END 2018-11-25 21:15 | disposition home or self-care (01) ==
LOC: 2E 11:12
DX: N30.90 Cystitis, unspecified without hematuria (principal); I12.0 Hypertensive chronic kidney disease with stage 5 chronic kidney disease or end stage renal disease; E11.22 Type 2 diabetes mellitus with diabetic chronic kidney disease; N18.6 End stage renal disease; Z99.2 Dependence on renal dialysis; E03.9 Hypothyroidism, unspecified; F32.9 Major depressive disorder, single episode, unspecified; D63.1 Anemia in chronic kidney disease; R60.0 Localized edema; M25.562 Pain in left knee; M25.561 Pain in right knee; M25.571 Pain in right ankle and joints of right foot; Y92.9 Unspecified place or not applicable; I25.2 Old myocardial infarction; N25.0 Renal osteodystrophy; Z88.6 Allergy status to analgesic agent; Z79.82 Long term (current) use of aspirin; Z79.899 Other long term (current) drug therapy; W05.0XXA Fall from non-moving wheelchair, initial encounter; Y92.099 Unspecified place in other non-institutional residence as the place of occurrence of the external cause
CPT/HCPCS: 36415 ×2; 51702; 73562; 73610; 73620; 80053 ×2; 80061; 81003; 82378; 82607; 82728; 82746; 83036; 83540; 83550; 83615; 83735 ×2; 83880; 84100 ×2; 84134; 84443; 84484 ×3; 84550; 85007; 85025 ×2; 85044; 85651; 86140; 86706; 86850; 86900; 86901; 86920; 87086; 93970; 94664; G0378 ×2; G0379; J0692 ×3; P9016; P9045; P9612; Q5105 ×2; 36430

== ENCOUNTER 2018-12-19 12:48 | Inpatient (IN) | payer MEDICARE, MEDICAID ==
[~2018-12-19] VITALS: Ht 170.2 cm; Wt 68.1 kg
[2018-12-19] VITALS (7 sets, daily range): BP systolic 81–117; BP diastolic 52–70
[~2018-12-19 12:48] MED LIST changes: +CEFDINIR300 MG PO
--- NOTE | 2018-12-19 13:12 | NUR ---
ED Nurse Note: [employer] Jason Reeves left contact: [phone]
[2018-12-19] MEDS ORDERED: Isovue-300 100ml vial INJ PRN (13:15)
--- NOTE | 2018-12-19 13:20 | NUR ---
ED Nurse Note: pt was wheeled in by caregiver to ed from [facility] assisted living facility c/o fall, pt stated she fell after walking on a cord in the assisted living. pt stated she hit her head and has pain on the left sife of the body especially the left hip. pt is a dialysis pt, and ahs fistula on the left upper forearm, pt noted to have bruing on the righr upperarm and stated it was from a different fall, pt noted to have hematoma on the left elbos and the left knee. pt has un even length of foot when supine. pt aox4, able to answer questions. pt is seen by lesley. iv stablished on the right ac using g 20 iv catheter with good blood return and blood was drawn and was sent to lab. pt unble to give urine sample as of now, erikd made aware.
--- NOTE | 2018-12-19 13:25 | NUR ---
ED Nurse Note: pt noted to have low bp, bp 81/52, ivf started of 500mL iv bolus per ermd order. pt denies sob. will continue to monitor
[2018-12-19] MEDS ORDERED: BRIMONIDINE TART5 ML BOTH EYES (13:29)
[2018-12-19] MEDS ORDERED: FULL SPECTRUM0.8 MG PO (13:29)
[2018-12-19] MEDS ORDERED: XANAX0.25 MG ORAL (13:31)
[2018-12-19] MEDS ORDERED: [UNRECOGNIZED DRUG - OTHER] ORAL (13:34)
[2018-12-19] MEDS ORDERED: LEXAPRO10 MG ORAL (13:34)
[2018-12-19] MEDS ORDERED: MIDODRINE HCL10 MG ORAL (13:35)
--- NOTE | 2018-12-19 13:36 | NUR ---
ED Nurse Note: xray on bedside
[2018-12-19] MEDS ORDERED: RENVELA0.8 GM ORAL (13:37)
[2018-12-19] MEDS ORDERED: NOVOLOG100 UNITS1 (13:37)
[2018-12-19] MEDS ORDERED: OMEPRAZOLE20 M3 ORAL (13:37)
--- NOTE | 2018-12-19 13:40 | NUR ---
ED Nurse Note: pt went to the ct with tech
[2018-12-19 13:41] LABS: HEMATOCRIT 25.6 % (37.0-47.0); LYMPHOCYTES % (AUTO) 10.9 % (20.0-45.0); MEAN CORPUSCULAR VOLUME 99 FL (80-99); MONOCYTES % (AUTO) 8.3 % (1.0-10.0); NEUTROPHILS % (AUTO) 78.9 % (45.0-75.0); PLATELET COUNT 116 K/UL (150-450); RED BLOOD COUNT 2.57 M/UL (4.20-5.40); RED CELL DISTRIBUTION WIDTH 18.7 % (11.6-14.8); WHITE BLOOD COUNT 4.9 K/UL (4.8-10.8)
[2018-12-19 13:59] LABS: ANION GAP 16 mmol/L (5-15); BLOOD UREA NITROGEN 52 mg/dL (7-18); CALCIUM 7.5 MG/DL (8.5-10.1); CARBON DIOXIDE 27 MMOL/L (21-32); CHLORIDE 101 MMOL/L (98-107); CREATININE 8.9 MG/DL (0.55-1.30); POTASSIUM 4.4 MMOL/L (3.5-5.1); SODIUM 144 MMOL/L (136-145)
--- NOTE | 2018-12-19 14:01 | Emergency Room Report ---
Physical Exam Vital Signs Date Time Temp Pulse Resp B/P (MAP) Pulse Ox O2 Delivery O2 Flow Rate FiO2 12/19/18 13:04 97.0 92 17 81/52 (62) 94 Room Air Medical Decision Making Diagnostic Impression: Primary Impression: ESRD (end stage renal disease) on dialysis Additional Impressions: Hip pain Acute head injury ER Course Patient was seen by PA however I am supervising care of this patient. On exam patient clinically concerning for left hip fracture with shortening of the left leg. Unable to bear weight. Patient also has a distended abdomen. Patient will require admission. Pending labs and imaging studies. Dr Renee aware. Patient initially somewhat hypotensive at triage. Will provide small fluid challenge and reassess Last Vital Signs Date Time Temp Pulse Resp B/P (MAP) Pulse Ox O2 Delivery O2 Flow Rate FiO2 12/19/18 13:20 92 17 Room Air 12/19/18 13:20 97.0 81/52 98 Status: improved Disposition: ADMITTED INPATIENT Condition: Serious Referrals: NOT CHOSEN IPA/,REFERRING (PCP) Spencer Walter MD Dec 19, 2018 14:01
[2018-12-19 14:03] LABS: ALANINE AMINOTRANSFERASE 11 U/L (12-78); ALBUMIN 3.2 G/DL (3.4-5.0); ALKALINE PHOSPHATASE 54 U/L (46-116); ASPARTATE AMINO TRANSFERASE 21 U/L (15-37); BILIRUBIN,TOTAL 0.6 MG/DL (0.2-1.0)
--- NOTE | 2018-12-19 14:25 | Diagnostic Imaging Report ---
Indication: Headache Technique: Contiguous 5 mm thick transaxial imaging of the head obtained in a Siemens Sensation [address] scanner. Soft tissue and bone windows generated. Automatic Exposure Control was utilized. Total Dose length Product (DLP): 1326.[address] Dose Index Volume (CTDIvol): 70.38 mGy Comparison: 06/03/2016 Findings: The size and configuration of the cortical sulci, basal cisterns, and ventricles are within normal limits for age. There is no mass effect, midline shift, or edema identified. There is no evidence of acute hemorrhage or abnormal intra-axial or extra-axial fluid collections. The frontal bone is hyperostotic. Impression: No mass effect, edema or acute bleed. Hyperostosis frontalis The CT scanner at [facility] is accredited by the [employer] and the scans are performed using dose optimization techniques as appropriate to a performed exam including Automatic Exposure control.
[2018-12-19 14:37] LABS: INR 1.1 (0.9-1.1)
--- NOTE | 2018-12-19 14:43 | History and Physical ---
History of Present Illness General Reason for Hospitalization: Multiple Trauma/Fall Present Illness Allergies: Coded Allergies: CODEINE (Verified Allergy, Unknown, 10/07/15) ERYTHROMYCIN BASE (Verified Allergy, Unknown, 10/07/15) Medication History Scheduled Aspirin* (Aspir 81*), 81 MG ORAL DAILY, (Reported) Atorvastatin Calcium* (Atorvastatin Calcium*), 40 MG ORAL BEDTIME, (Reported) Brimonidine Tartrate* (Alphagan*), 1 DROP BOTH EYES BID, (Reported) Brimonidine Tartrate* (Alphagan*), 1 DROP BOTH EYES DAILY, (Reported) Cefdinir (Cefdinir), 300 MG PO QOD Cephalexin* (Keflex*), 250 MG ORAL EVERY 12 HOURS Docusate Sodium (Stool Softener), 100 MG PO BID, (Reported) Escitalopram Oxalate* (Lexapro*), 10 MG ORAL DAILY, (Reported) Folic Acid/Vitamin B Comp W-C (Full Spectrum B With Vit C Tab), 0.8 MG PO DAILY, (Reported) Lamotrigine* (Lamictal*), 25 MG ORAL DAILY, (Reported) Levothyroxine Sodium (Synthroid), 50 MCG ORAL DAILY, (Reported) Midodrine* (Proamatine*), 10 MG ORAL BID, (Reported) Moxifloxacin HCl (Vigamox), 1 DROP LEFT EYE FOUR TIMES A DAY, (Reported) Olanzapine (Olanzapine), 5 MG ORAL BEDTIME Omeprazole (Omeprazole), 20 MG ORAL DAILY, (Reported) Risperidone* (Risperdal*), 6 MG PO HS, (Reported) Risperidone* (Risperdal*), 0.5 MG ORAL AM, (Reported) Sevelamer Carbonate* (Renvela*), 800 MG ORAL THREE TIMES A DAY, (Reported) Sevelamer Carbonate* (Renvela*), 800 MG ORAL THREE TIMES A DAY, (Reported) [BitoinB-complex], 5,000 MG ORAL DAILY, (Reported) Scheduled PRN Alprazolam* (Xanax*), 0.25 MG ORAL BID PRN for PRN Agitation/Anxiety, (Reported) Miscellaneous Medications Insulin Aspart (Novolog Flexpen), (Reported) Patient History Healthcare decision maker Resuscitation status Advanced Directive on File Physical Exam Last 24 Hour Vital Signs Date Time Temp Pulse Resp B/P (MAP) Pulse Ox O2 Delivery O2 Flow Rate FiO2 12/19/18 13:20 92 17 Room Air 12/19/18 13:20 97.0 89 14 81/52 98 Room Air 12/19/18 13:04 97.0 92 17 81/52 (62) 94 Room Air Laboratory Tests Test 12/19/18 13:26 White Blood Count 4.9 K/UL (4.8-10.8) Red Blood Count 2.57 M/UL (4.20-5.40) L Hemoglobin 8.0 G/DL (12.0-16.0) L Hematocrit 25.6 % (37.0-47.0) L Mean Corpuscular Volume 99 FL (80-99) Mean Corpuscular Hemoglobin 31.0 PG (27.0-31.0) Mean Corpuscular Hemoglobin Concent 31.2 G/DL (32.0-36.0) L Red Cell Distribution Width 18.7 % (11.6-14.8) H Platelet Count 116 K/UL (150-450) L Mean Platelet Volume 5.8 FL (6.5-10.1) L Neutrophils (%) (Auto) 78.9 % (45.0-75.0) H Lymphocytes (%) (Auto) 10.9 % (20.0-45.0) L Monocytes (%) (Auto) 8.3 % (1.0-10.0) Eosinophils (%) (Auto) 1.0 % (0.0-3.0) Basophils (%) (Auto) 1.0 % (0.0-2.0) Prothrombin Time 11.4 SEC (9.30-11.50) Prothromb Time International Ratio 1.1 (0.9-1.1) Activated Partial Thromboplast Time 25 SEC (23-33) Sodium Level 144 MMOL/L (136-145) Potassium Level 4.4 MMOL/L (3.5-5.1) Chloride Level 101 MMOL/L (98-107) Carbon Dioxide Level 27 MMOL/L (21-32) Anion Gap 16 mmol/L (5-15) H Blood Urea Nitrogen 52 mg/dL (7-18) H Creatinine 8.9 MG/DL (0.55-1.30) H Estimat Glomerular Filtration Rate 4.5 mL/min (>60) Glucose Level 103 MG/DL (74-106) Calcium Level 7.5 MG/DL (8.5-10.1) L Total Bilirubin 0.6 MG/DL (0.2-1.0) Aspartate Amino Transf (AST/SGOT) 21 U/L (15-37) Alanine Aminotransferase (ALT/SGPT) 11 U/L (12-78) L Alkaline Phosphatase 54 U/L (46-116) Total Protein 6.5 G/DL (6.4-8.2) Albumin 3.2 G/DL (3.4-5.0) L Globulin 3.3 g/dL Albumin/Globulin Ratio 1.0 (1.0-2.7) Lipase 394 U/L (73-393) H Serum Alcohol < 3 mg/dL Height (Feet): 5 Height (Inches): 7.00 Weight (Pounds): 135 Medications Current Medications Medications (Trade) Dose Ordered Sig/Basil Route PRN Reason Start Time Stop Time Status Last Admin Dose Admin Iopamidol (Isovue-300 100ml) 100 ml NOW PRN INJ Radiology Procedure 12/19/18 13:15 Sarah Renee MD Dec 19, 2018 14:43
[2018-12-19] MEDS ORDERED: Albuterol/Ipratropium 3ml neb HHN PRN (14:45)
[2018-12-19] MEDS ORDERED: ALPRAZolam 0.25mg tab ORAL PRN (14:45)
[2018-12-19] MEDS ORDERED: Miralax 17gm pkt ORAL PRN (14:45)
--- NOTE | 2018-12-19 15:00 | NUR ---
ED Nurse Note: efrain moctezuma ordered second bag of 500ml and made aware of the bp. bp 95/52, efrain moctezuma advised to hold the ivf for now and carried out. will continue to monitor.
--- NOTE | 2018-12-19 15:16 | Diagnostic Imaging Report ---
Indication: Abdominal pain Technique: Continuous helical transaxial imaging of the abdomen and pelvis was obtained from the lung bases to the pubic symphysis during intravenous contrast administration. Coronal 2-D reformats were also obtained. Study obtained in a Siemens sensation [address] Automatic Exposure Control was utilized. Total Dose length Product (DLP): 935.[address] Dose Index Volume (CTDIvol): 16.82 mGy Comparison: None Findings: The urinary bladder is markedly distended. There is also moderate degree of fecal retention in the rectum which is distended. Atrophic uterus noted. Bowel gas pattern is nonobstructive. The spleen is enlarged. The bladder is unremarkable. The pancreas and adrenal glands are unremarkable. The kidneys are markedly atrophic and there are innumerable cysts present. There is mild bilateral hydronephrosis. The appendix is normal. The liver is unremarkable. The lung bases show minimal posterior basilar atelectasis. There are small retroperitoneal nodes nonspecific in nature. There is narrowing of intervertebral discs and accompanying endplate osteophyte formation. Hypertrophied facet joints also demonstrated. IMPRESSION: Markedly distended urinary bladder. Mild associated hydronephrosis. Suggest Flores catheter placement. Atrophic kidneys. Innumerable cysts. Splenomegaly. Atherosclerotic vascular disease. Small retroperitoneal nodes nonspecific. The CT scanner at [facility] is accredited by the [employer] and the scans are performed using dose optimization techniques as appropriate to a performed exam including Automatic Exposure control.
--- NOTE | 2018-12-19 15:56 | Diagnostic Imaging Report ---
Indication: Forearm painPain Findings: 2 views of the right forearm were obtained. No acute fractures, malalignment, erosions or periostitis are identified. . Bones are osteopenic Soft tissues are unremarkable. Impression: Negative for acute injury
--- NOTE | 2018-12-19 15:57 | Diagnostic Imaging Report ---
Indication: Chest pain. Trauma to the chest Comparison: 05/29/2016 A single view chest radiograph was obtained. Findings: No definite infiltrate or pulmonary vascular congestion identified. Surgical clips noted in the left arm. The heart is enlarged. The aorta is mildly enlarged consistent with atherosclerotic vascular disease. The bones are osteopenic. Impression: No acute disease
--- NOTE | 2018-12-19 15:58 | Diagnostic Imaging Report ---
Indications: Left hip pain Findings: Two views of the left hip were obtained. There is a comminuted moderately displaced intertrochanteric fracture of the left hip. The bones are osteopenic. The lateral views are nondiagnostic. There is a calcification in the pelvis which may be due to a uterine fibroid. There is moderate retention of fecal material in the rectal vault. IMPRESSION: Limited evaluation showing a comminuted intertrochanteric fracture of the left hip
--- NOTE | 2018-12-19 16:32 | Emergency Room Report ---
History of Present Illness General Chief Complaint: Multiple Trauma/Fall Present Illness HPI 68-year-old female with history of end-stage renal disease, and recent deep vein thrombosis here complaining of left hip pain after walking 3 times today. Patient reports that she was using her walker when her walker got stuck in some cords and fell and injured his of her left hip as well as her head. Denies loss of consciousness and dizziness. Denies nausea vomiting and headache. Patient also has multiple bruises on right forearm, edema of right foot, and left knee. Patient reports that she is compliant with her medication however reports that she does not currently take any blood thinners. Patient was hospitalized in mid November 2018 at [facility] for deep vein thrombosis in both lower extremities. Patient was sent in by Dr. Renee. Denies chest pain , shortness of breath, palpitation, abdominal pain, and all other injuries. Patient also reports that her abdomen has been distended for the past few days denies abnormal bowel movements. Denies blood in her stool. Denies history of alcohol intake and drug use. Patient is rating the pain in her left hip 10 out of 10 without radiation denying tingling numbness. Patient has 2+ pulse in both dorsalis pedis. No calf swelling or tenderness noted. (Faustino Cuello) Allergies: Coded Allergies: CODEINE (Verified Allergy, Unknown, 10/07/15) ERYTHROMYCIN BASE (Verified Allergy, Unknown, 10/07/15) Patient History Past Medical History: see triage record Past Surgical History: unable to obtain Pertinent Family History: none Now: No Immunizations: UTD Reviewed Nursing Documentation: PMH: Agreed; PSxH: Agreed (Faustino Cuello) Nursing Documentation-PMH Hx Cardiac Problems: No - DVT Hx Diabetes: Yes Hx Cancer: No Hx Gastrointestinal Problems: No Hx Dialysis: Yes History Of Psychiatric Problem: Yes - Bipolar Hx Neurological Problems: No (Faustino Cuello) Review of Systems All Other Systems: negative except mentioned in HPI (Faustino Cuello) Physical Exam Vital Signs Date Time Temp Pulse Resp B/P (MAP) Pulse Ox O2 Delivery O2 Flow Rate FiO2 12/19/18 13:04 97.0 92 17 81/52 (62) 94 Room Air Sp02 EP Interpretation: abnormal General Appearance: normal inspection, well appearing, no apparent distress, alert, GCS 15, non-toxic Head: normocephalic, atraumatic Eyes: bilateral eye normal inspection, bilateral eye PERRL ENT: normal ENT inspection Neck: normal inspection, full range of motion Respiratory: normal inspection, chest non-tender, lungs clear, no rhonchi, no retraction, no wheezing Cardiovascular #1: normal inspection, regular rate, rhythm, no edema, no murmur , normal capillary refill Cardiovascular #2: 2+ dorsalis pedis (R), 2+ dorsalis pedis (L) Gastrointestinal: no bruit, no guarding, no hernia, no pulsatile mass, no rebound, distended Rectal: deferred Genitourinary: no CVA tenderness Musculoskeletal: back normal, non-tender, no calf tenderness, swelling - Right foot, other - Unstable left pelvis Neurologic: normal inspection, alert, oriented x3 Psychiatric: normal inspection, judgement/insight normal, memory normal Skin: other - Multiple ecchymosis noted on arms and lower extremities Lymphatic: normal inspection, no adenopathy (Faustino Cuello) Medical Decision Making PA Attestation All diagnoses and treatment plans were reviewed and discussed with my supervising physician Dr. Ferguson (Faustino Cuello) Medicare Attestation The history of Brianna Ibanez has been reviewed and management options for her have been examined and discussed by Alexis Ferguson. I have personally examined and interviewed the patient. (Alexis Ferguson MD) Diagnostic Impression: Primary Impression: ESRD (end stage renal disease) on dialysis Additional Impressions: Acute head injury Hip pain ER Course 68-year-old female with history of end-stage renal disease, and recent deep vein thrombosis here complaining of left hip pain after walking 3 times today. Patient reports that she was using her walker when her walker got stuck in some cords and fell and injured his of her left hip as well as her head. Denies loss of consciousness and dizziness. Denies nausea vomiting and headache. Patient also has multiple bruises on right forearm, edema of right foot, and left knee. Patient reports that she is compliant with her medication however reports that she does not currently take any blood thinners. Patient was hospitalized in mid November 2018 at [facility] for deep vein thrombosis in both lower extremities. Patient was sent in by Dr. Renee. Denies chest pain , shortness of breath, palpitation, abdominal pain, and all other injuries. Patient also reports that her abdomen has been distended for the past few days denies abnormal bowel movements. Denies blood in her stool. Denies history of alcohol intake and drug use. Patient is rating the pain in her left hip 10 out of 10 without radiation denying tingling numbness. Patient has 2+ pulse in both dorsalis pedis. No calf swelling or tenderness noted. Ddx considered but are not limited to: Hip fracture, dislocation, cerebral hematoma, head contusion, deep vein thrombosis, right foot contusion Vital signs: are WNL, pt. is afebrile H&PE are most consistent with: End-stage renal disease, acute head injury, left hip fracture ORDERS: Hip x-ray, CT abdomen pelvis with contrast, CT head no contrast, right foot x-ray, chest x-ray, right forearm x-ray, ER intervention: NS bolus as patient was hypotensive Patient was admited with diagnosis of hip fracture, ESRD to Dr. Renee and Maribel under supervision of : Brett pt stable at time of admission (Faustino Cuello) EKG Diagnostic Results Rate: normal Rhythm: NSR ST Segments: no acute changes (Faustino Cuello) Chest X-Ray Diagnostic Results Chest X-Ray Diagnostic Results : Chest X-Ray Ordered: Yes # of Views/Limited/Complete: 1 View Indication: Other EP Interpretation: Yes PA Xray: Interpretation reviewed, by supervising MD, and agrees with findings. Interpretation: no consolidation, no effusion, no pneumothorax Impression: No acute disease Electronically Signed by: Faustino Cueto PA-C (Faustino Cuello) Other X-Ray Diagnostic Results Other X-Ray Diagnostic Results #1: X-Ray ordered: Right foot # of Views/Limited Vs Complete: 3 View Indication: Pain EP Interpretation: Yes PA Xray: Interpretation reviewed, by supervising MD, and agrees with findings. Interpretation: no dislocation, no soft tissue swelling, no fractures Impression: No acute disease Electronically Signed by: Faustino Cueto PA-C Other X-Ray Diagnostic Results #2: X-Ray ordered: Right forearm # of Views/Limited Vs Complete: 3 View Indication: Pain EP Interpretation: Yes PA Xray: Interpretation reviewed, by supervising MD, and agrees with findings. Interpretation: no dislocation, no soft tissue swelling, no fractures Impression: No acute disease Electronically Signed by: Faustino Cueto PA-C Other X-Ray Diagnostic Results #3: X-Ray ordered: Left hip # of Views/Limited Vs Complete: 3 View Indication: Pain EP Interpretation: Yes PA Xray: Interpretation reviewed, by supervising MD, and agrees with findings. Interpretation: other - Fracture left hip Impression: Other - Left hip fracture Electronically Signed by: Faustino Cueto PA-C (Faustino Cuello) CT/MRI/US Diagnostic Results CT/MRI/US Diagnostic Results #1: Imaging Test Ordered: Head CT no contrast Impression No acute changes noted CT/MRI/US Diagnostic Results #2: Imaging Test Ordered: CT abdomen and pelvis with contrast Impression Hydronephrosis, splenomegaly (Faustino Cuello) Last Vital Signs Date Time Temp Pulse Resp B/P (MAP) Pulse Ox O2 Delivery O2 Flow Rate FiO2 12/19/18 15:55 65 18 91/56 100 Room Air 12/19/18 13:20 97.0 (Faustino Cuello) Disposition: ADMITTED INPATIENT Condition: Stable Referrals: NOT CHOSEN IPA/,REFERRING (PCP) Faustino Cuello Dec 19, 2018 16:32 Alexis Ferguson MD Dec 22, 2018 06:23
--- NOTE | 2018-12-19 17:00 | NUR ---
ED Nurse Note: pt is admitted to the hospital and report was given singh chang rn.
--- NOTE | 2018-12-19 17:30 | NUR ---
ED Nurse Note: pt was transfered to med surg room with stable vs and with all belongings endorsed to bernardo leone.
[2018-12-19] MEDS: Docusate 100mg cap ORAL SCH (18:00)
--- NOTE | 2018-12-19 18:00 | NUR ---
NURSE NOTES: Admitted pt from ED via gurney. pt is under medical supervision of Dr. Olson for (L)hip fx. pt is a/ox4. Breathing regular and unlabored. Able to verbalized needs. noted with (L)upper arm AV fistula. IV intact and patent. noted with multiple hematoma from s/p fall from assisted living. pt refused to take picture on sacral area due to unable to turn at this time. also noted with (R)great toe hematoma. picture taken. All orders are input by Dr. olson. belongings checked and kept at bedside. bed in lowest position. will continue to monitor plan of care
[2018-12-19] MEDS: Renvela 800mg Pkt ORAL SCH (18:30)
[2018-12-19] MEDS: Midodrine 10mg tab ORAL SCH (18:30)
--- NOTE | 2018-12-19 19:05 | NUR ---
NURSE NOTES: Received a report from PRATIMA Hickey. Pt is in stable condition. Sleeping comfortably. On room air. No c/o pain/discomfort. IV site is patent and intact. Bed in lowest position. Bed alarm is on. Call light within reach. Will continue to monitor.
--- NOTE | 2018-12-19 19:05 | NUR ---
HAND-OFF: Report given to PRATIMA Terrazas.
--- NOTE | 2018-12-19 20:00 | NUR ---
NURSE NOTES: Pt refused the sacral healed wound picture to be taken. She wants it at 0600 tomorrow morning.
--- NOTE | 2018-12-19 20:04 | NUR ---
CASE MANAGEMENT: REVIEW 68Y/FEMALE BIB CAREGIVER FROM [facility] CC: FALL X3 IN ONE DAY . PAIN . SWELLING BILATERAL KNEE . RIGHT FOOT SI: S/P FALL . ESRD ON HD . ACUTE HEAD INJURY . LEFT HIP FRACTURE T 97.0 HR 92 RR 17 BP 81/52 SAT 94% ROOM AIR H/H 8.0/25.6 BUN 52 CR 8.9 LIPASE 394 IS: NS IVF BOLUS X1 ADMITTED TO MED/SURG UNIT 12/19/2018 DCP: PATIENT IS FROM [facility] B&
[2018-12-19] MEDS: Heparin 5000 units/ml inj SUBQ SCH (20:08)
[2018-12-19] MEDS: OLANZapine 2.5mg tab ORAL SCH (20:15)
[2018-12-19] MEDS: NovoLOG Insulin Flexpen SUBQ SCH (20:17)
--- NOTE | 2018-12-19 20:20 | Nephrology Progress Note ---
Assessment/Plan Plan pt seen and examined full note dictated dialysis order was placed dialysis nurse was informed today at 1 pm Objective Objective Last 24 Hour Vital Signs Date Time Temp Pulse Resp B/P (MAP) Pulse Ox O2 Delivery O2 Flow Rate FiO2 12/19/18 18:32 Room Air 12/19/18 18:28 98.9 71 18 100/55 (70) 98 12/19/18 17:30 97.0 69 18 117/70 100 Room Air 12/19/18 17:00 69 18 117/70 100 Room Air 12/19/18 15:55 65 18 91/56 100 Room Air 12/19/18 15:00 69 18 95/52 100 Room Air 12/19/18 13:20 92 17 Room Air 12/19/18 13:20 97.0 89 14 81/52 98 Room Air 12/19/18 13:04 97.0 92 17 81/52 (62) 94 Room Air Laboratory Tests 12/19/18 13:26: White Blood Count 4.9, Red Blood Count 2.57L, Hemoglobin 8.0L, Hematocrit 25.6L , Mean Corpuscular Volume 99, Mean Corpuscular Hemoglobin 31.0, Mean Corpuscular Hemoglobin Concent 31.2L, Red Cell Distribution Width 18.7H, Platelet Count 116L, Mean Platelet Volume 5.8L, Neutrophils (%) (Auto) 78.9H, Lymphocytes (%) (Auto) 10.9L, Monocytes (%) (Auto) 8.3, Eosinophils (%) (Auto) 1.0, Basophils (%) (Auto) 1.0, Prothrombin Time 11.4, Prothromb Time International Ratio 1.1, Activated Partial Thromboplast Time 25, Sodium Level 144, Potassium Level 4.4, Chloride Level 101, Carbon Dioxide Level 27, Anion Gap 16H, Blood Urea Nitrogen 52H, Creatinine 8.9H, Estimat Glomerular Filtration Rate 4.5, Glucose Level 103, Calcium Level 7.5L, Total Bilirubin 0.6 , Aspartate Amino Transf (AST/SGOT) 21, Alanine Aminotransferase (ALT/SGPT) 11L , Alkaline Phosphatase 54, Total Protein 6.5, Albumin 3.2L, Globulin 3.3, Albumin/Globulin Ratio 1.0, Lipase 394H, Serum Alcohol < 3 12/19/18 15:45: Urine Opiates Screen [Pending], Urine Barbiturates Screen [Pending], Phencyclidine (PCP) Screen [Pending], Urine Amphetamines Screen [Pending], Urine Benzodiazepines Screen [Pending], Urine Cocaine Screen [Pending], Urine Marijuana (THC) Screen [Pending] Height (Feet): 5 Height (Inches): 7.00 Weight (Pounds): 135 Gwen Mccray MD Dec 19, 2018 20:20
--- NOTE | 2018-12-19 21:55 | NUR ---
NURSE NOTES: Contacted Dr. Renee about the pt wanting [place] 5/325 1 tab even though her BP is 80/47 right now. According to the pt, her baseline for systolic BP is 80s-90s. Dr. Renee said that it's okay to give the [place] 5/325 1 tab. Charge Nurse Pau made aware.
[2018-12-19] MEDS: Zolpidem 5mg tab ORAL PRN (22:21)
--- NOTE | 2018-12-19 23:30 | NUR ---
NURSE NOTES: Pt refused the licona catheter insertion despite education provided. She also refused the consent for inpatient hemodialysis to be signed. Will try again tomorrow morning. Charge Nurse Pau made aware.
[2018-12-20] VITALS (9 sets, daily range): BP systolic 73–138; BP diastolic 39–80
--- NOTE | 2018-12-20 00:15 | Consultation ---
DATE OF CONSULTATION: 12/19/2018 NEPHROLOGY CONSULTATION CONSULTING PHYSICIAN: Gwen Mccray M.D. REFERRING PHYSICIAN: Sarah Renee M.D. REASON FOR CONSULTATION: End-stage renal disease, need for dialysis. HISTORY OF PRESENT ILLNESS: The patient is an unfortunate 68-year-old female with past medical history significant for history of end-stage renal disease, anemia of chronic kidney disease, renal osteodystrophy, hypertension who was admitted not too long ago after she had an episode of fall at the [facility] and [facility]. Apparently, this time she was in board and [facility] again and she tripped over couple of wires that were on way on the living room and she was brought in complaining of severe left hip pain. The patient upon arrival in the ER had a blood pressure of 81/52, she was mildly tachycardic, pulse rate of 92. The patient had a CT of the head was negative. X-ray of the forearm was negative. The patient had a CT of the abdomen, which revealed distended bladder. Consequently, the patient was admitted at [facility]. I was called for management of renal disease and electrolyte imbalance. PAST MEDICAL HISTORY: Including. 1. End-stage renal disease. 2. Anemia of chronic kidney disease. 3. Renal osteodystrophy. 4. Hypotension. 5. Bipolar disease. ALLERGIES: Allergic to codeine and erythromycin. FAMILY HISTORY: Noncontributory. PAST SURGICAL HISTORY: History of PermCath placement, history of AV fistula placement. REVIEW OF SYSTEMS: CONSTITUTIONAL: She complained of generalized weakness. Complaining of left hip pain 8/10 and she is not able to move her left hip. PULMONARY: Denies any shortness of breath, cough, or sputum. CARDIOVASCULAR: Denies any chest pain or palpitations. GASTROINTESTINAL: Denies any nausea, vomiting, diarrhea, hematemesis, or hematochezia. GENITOURINARY: Denies having any sensation of the urination although the patient found to have a distended bladder on examination and on the CT scan. MEDICATIONS: Medication list was reviewed. PHYSICAL EXAMINATION: VITAL SIGNS: The patient had temperature of 98 degrees, blood pressure of 93/54, pulse rate of 84. HEAD AND NECK: No JVP. No LAD. No thyromegaly. Extraocular movements intact. Pupils are reactive to light and accommodation. LUNGS: Clear to auscultation. CARDIAC: Regular rate and rhythm. S1, S2. No murmur. No rub. ABDOMEN: Soft. Bowel sounds positive. EXTREMITIES: No edema. No clubbing. No cyanosis. LABORATORY AND DIAGNOSTIC DATA: Lab values revealed WBC count of 4.9, hemoglobin of 8, hematocrit of 25, platelet count of 116. Chemistry reveals sodium 144, potassium 4.4, BUN is 53, creatinine of 8.9, calcium of 7.5. ALT of 21, AST of 11, alkaline phosphatase of 54. Albumin of 3.2. ASSESSMENT: 1. End-stage renal disease. 2. Anemia of chronic kidney disease. 3. Renal osteodystrophy. 4. Status post fall. 5. Possible left hip pain versus fracture. PLAN: For the patient to restart the patient on Epogen. Check the phosphorus level. Plan for the patient to receive dialysis. Check the iron panel for anemia of chronic kidney disease. At the end, I would like to thank Dr. Renee for allowing me to participate in the care of this patient. Gwen Mccray M.D. DR: SWETA JOB#: [id number] CC:
--- NOTE | 2018-12-20 01:50 | NUR ---
NURSE NOTES: Inserted the licona catheter. She also signed the consent for inpt hemodialysis. However, she refused to be turned and the sacral wound picture to be taken. Will try to take the picture later.
[2018-12-20] MEDS: HYDROcodone/Acetamin 5/325 tab ORAL PRN ×3 (02:03→22:17)
--- NOTE | 2018-12-20 04:30 | NUR ---
NURSE NOTES: Contacted Dr. Renee about the pt's BP of 69/40. Pt is asymptomatic. According to the pt, her systolic BP usually ranges 80s-90s. Charge Nurse Pau made aware. Waiting for Dr. Renee's response. Will continue to monitor.
--- NOTE | 2018-12-20 05:00 | NUR ---
NURSE NOTES: Called [facility] to schedule the inpt hemodialysis for today. Nini ANDUJAR talked to
[2018-12-20] MEDS: NovoLOG Insulin Flexpen SUBQ SCH ×4 (05:38→21:00)
--- NOTE | 2018-12-20 05:59 | NUR ---
NURSE NOTES: Pt refused to be turned and sacral wound picture to be taken. Charge Nurse Pau made aware.
[2018-12-20 07:15] LABS: HEMATOCRIT 20.4 % (37.0-47.0); MEAN CORPUSCULAR VOLUME 97 FL (80-99); PLATELET COUNT 96 K/UL (150-450); RED CELL DISTRIBUTION WIDTH 18.2 % (11.6-14.8); WHITE BLOOD COUNT 3.1 K/UL (4.8-10.8)
--- NOTE | 2018-12-20 07:15 | NUR ---
HAND-OFF: Report given to PRATIMA Hickey.
[2018-12-20 07:18] LABS: HEMOGLOBIN 6.9 G/DL (12.0-16.0)
[2018-12-20 07:20] LABS: ALANINE AMINOTRANSFERASE 12 U/L (12-78); ALBUMIN 2.7 G/DL (3.4-5.0); ALBUMIN/GLOBULIN RATIO 0.9 (1.0-2.7); ALKALINE PHOSPHATASE 46 U/L (46-116); ANION GAP 11 mmol/L (5-15); ASPARTATE AMINO TRANSFERASE 15 U/L (15-37); BILIRUBIN,TOTAL 0.4 MG/DL (0.2-1.0); BLOOD UREA NITROGEN 62 mg/dL (7-18); CALCIUM 6.5 MG/DL (8.5-10.1); CARBON DIOXIDE 29 MMOL/L (21-32); CHLORIDE 102 MMOL/L (98-107); CHOLESTEROL 153 MG/DL (< 200); CREATININE 9.7 MG/DL (0.55-1.30); HDL CHOLESTEROL 34 MG/DL (40-60); POTASSIUM 4.2 MMOL/L (3.5-5.1); SODIUM 142 MMOL/L (136-145); TRIGLYCERIDES 78 MG/DL (30-150)
--- NOTE | 2018-12-20 07:35 | Consultation ---
Consult Note Consult Note Consult called and chart reviewed. 68 yo female with fall and left hip IT fx. ESRD and on dialysis xray reviewed: badly comminuted left hip IT fracture Plan for left hip ORIF with short vs long gamma nail tomorrow 6:45am 2d Echo today and Med/Renal to optimize pt in preparation for sx tomorrow Gwendolyn Hatch Dec 20, 2018 07:35
--- NOTE | 2018-12-20 07:55 | NUR ---
NURSE NOTES: pt in bed with no sob nor in any form of distress noted. breathing regular and unlabored. noted with H/H 6.9/20.4. will inform Dr. olson and follow up accordingly. denies pain at this time. bed in lowest position. f/c draining well. will continue to monitor.
[2018-12-20] MEDS: Docusate 100mg cap ORAL SCH ×2 (09:00→17:04)
--- NOTE | 2018-12-20 09:07 | Nephrology Progress Note ---
Assessment/Plan Assessment 1. End-stage renal disease. 2. Anemia of chronic kidney disease. 3. Renal osteodystrophy. 4. Status post fall. 5. Possible left hip pain versus fracture. Plan dialysis as schedule monitoring phos,pth continue epogen pain management surgery schedule for today Subjective Subjective alert and awake she is c/o left hip pain Objective Objective Last 24 Hour Vital Signs Date Time Temp Pulse Resp B/P (MAP) Pulse Ox O2 Delivery O2 Flow Rate FiO2 12/20/18 08:00 97.5 79 17 73/39 (50) 96 12/20/18 05:57 77 18 81/49 (60) 96 12/20/18 04:00 99.0 77 16 75/44 (54) 95 12/20/18 01:50 77 85/49 (61) 12/20/18 00:00 97.8 79 18 84/47 (59) 95 12/19/18 21:00 Room Air 12/19/18 20:00 98.2 84 18 93/54 (67) 97 12/19/18 18:32 Room Air 12/19/18 18:28 98.9 71 18 100/55 (70) 98 12/19/18 17:30 97.0 69 18 117/70 100 Room Air 12/19/18 17:00 69 18 117/70 100 Room Air 12/19/18 15:55 65 18 91/56 100 Room Air 12/19/18 15:00 69 18 95/52 100 Room Air 12/19/18 13:20 92 17 Room Air 12/19/18 13:20 97.0 89 14 81/52 98 Room Air 12/19/18 13:04 97.0 92 17 81/52 (62) 94 Room Air Intake and Output 12/19/18 12/20/18 19:00 07:00 Intake Total 500 ml Output Total 2750 ml Balance 500 ml -2750 ml Intake IV Total 500 ml Output Urine Total 2750 ml # Bowel Movements 1 Laboratory Tests 12/19/18 13:26: White Blood Count 4.9, Red Blood Count 2.57L, Hemoglobin 8.0L, Hematocrit 25.6L , Mean Corpuscular Volume 99, Mean Corpuscular Hemoglobin 31.0, Mean Corpuscular Hemoglobin Concent 31.2L, Red Cell Distribution Width 18.7H, Platelet Count 116L, Mean Platelet Volume 5.8L, Neutrophils (%) (Auto) 78.9H, Lymphocytes (%) (Auto) 10.9L, Monocytes (%) (Auto) 8.3, Eosinophils (%) (Auto) 1.0, Basophils (%) (Auto) 1.0, Prothrombin Time 11.4, Prothromb Time International Ratio 1.1, Activated Partial Thromboplast Time 25, Sodium Level 144, Potassium Level 4.4, Chloride Level 101, Carbon Dioxide Level 27, Anion Gap 16H, Blood Urea Nitrogen 52H, Creatinine 8.9H, Estimat Glomerular Filtration Rate 4.5, Glucose Level 103, Calcium Level 7.5L, Total Bilirubin 0.6 , Aspartate Amino Transf (AST/SGOT) 21, Alanine Aminotransferase (ALT/SGPT) 11L , Alkaline Phosphatase 54, Total Protein 6.5, Albumin 3.2L, Globulin 3.3, Albumin/Globulin Ratio 1.0, Lipase 394H, Serum Alcohol < 3 12/19/18 15:45: Urine Opiates Screen [Pending], Urine Barbiturates Screen [Pending], Phencyclidine (PCP) Screen [Pending], Urine Amphetamines Screen [Pending], Urine Benzodiazepines Screen [Pending], Urine Cocaine Screen [Pending], Urine Marijuana (THC) Screen [Pending] 12/20/18 05:25: White Blood Count 3.1L, Red Blood Count 2.10L, Hemoglobin 6.9*L, Hematocrit 20.4L, Mean Corpuscular Volume 97, Mean Corpuscular Hemoglobin 32.7H, Mean Corpuscular Hemoglobin Concent 33.7, Red Cell Distribution Width 18.2H, Platelet Count 96L, Mean Platelet Volume 5.2L, Neutrophils (%) (Auto) , Lymphocytes (%) (Auto) , Monocytes (%) (Auto) , Eosinophils (%) (Auto) , Basophils (%) (Auto) , Sodium Level 142, Potassium Level 4.2, Chloride Level 102 , Carbon Dioxide Level 29, Anion Gap 11, Blood Urea Nitrogen 62H, Creatinine 9.7H, Estimat Glomerular Filtration Rate 4.0, Glucose Level 78, Calcium Level 6.5L, Total Bilirubin 0.4, Aspartate Amino Transf (AST/SGOT) 15, Alanine Aminotransferase (ALT/SGPT) 12, Alkaline Phosphatase 46, Total Protein 5.7L, Albumin 2.7L, Globulin 3.0, Albumin/Globulin Ratio 0.9L, Neutrophils % (Manual) [Pending], Lymphocytes % (Manual) [Pending], Platelet Estimate [Pending], Platelet Morphology [Pending], Hemoglobin A1c 4.0L, Phosphorus Level 7.3H, Triglycerides Level 78, Cholesterol Level 153, LDL Cholesterol 95, HDL Cholesterol 34L, Cholesterol/HDL Ratio 4.5H, Thyroid Stimulating Hormone (TSH) 1.039 Height (Feet): 5 Height (Inches): 7.00 Weight (Pounds): 135 Objective HEAD AND NECK: No JVP. No LAD. No thyromegaly. Extraocular movements intact. Pupils are reactive to light and accommodation. LUNGS: Clear to auscultation. CARDIAC: Regular rate and rhythm. S1, S2. No murmur. No rub. ABDOMEN: Soft. Bowel sounds positive. EXTREMITIES: No edema. No clubbing. No cyanosis. Gwen Mccray MD Dec 20, 2018 09:07
[2018-12-20] MEDS: Heparin 5000 units/ml inj SUBQ SCH ×2 (09:32→21:00)
[2018-12-20] MEDS: Midodrine 10mg tab ORAL SCH ×2 (09:32→18:47)
[2018-12-20] MEDS: Renvela 800mg Pkt ORAL SCH ×3 (09:33→18:47)
--- NOTE | 2018-12-20 11:13 | Diagnostic Imaging Report ---
INDICATION: Pain after trauma TECHNIQUE: XRAY Foot Complete R; Multiple views of the right foot were obtained COMPARISON: None FINDINGS: Bones are diffusely demineralized. There are linear lucencies projecting over the second, third, and fourth metatarsal bases. Lisfranc alignment is preserved. Joint spaces are maintained. There is soft tissue swelling over the dorsum of the midfoot.. There is vascular calcification. IMPRESSION: Linear lucencies projecting over the second, third, and fourth tarsal bases which, due to osteopenia and renal osteodystrophy, may represent overlapping shadows. However, given overlying soft tissue swelling, acute fractures are not excluded.
--- NOTE | 2018-12-20 13:52 | Consultation ---
Consult Note Consult Note pt seen at bedside. hx consistent with chart. mechanical fall yesterday and subsequent hip pain. 2d echo done. dialysis scheduled for 4pm today HGB low- being transfused by dialysis nurse BP low but stable Left LE shorted and externally rotated. NV intact d/w pt plan for surgery. she ambulates with a walker at baseline and wants to get back to walking after sx. risks/benefits discussed. pt verbalized understanding case d/w nursing Gwendolyn Hatch Dec 20, 2018 13:52
--- NOTE | 2018-12-20 13:56 | NUR ---
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 PT walks with walker. L-hip pain, swelling, redness bilateral knees, R-foot. R-big toe injury with bleeding. Reports no loss of consciousness. Last dialysis last wednesday SI: Hip fracture, ESRD VS: BP: 81/52 HR: 89 RR 14 02 Sat 98% (RA) T: 97.0 NT: RBC 2.57 Hgb 8.0 Hct 25.6 RCD 18.7 Plt 116 Anion Gap 16 BUN 52 Creatinine 8.9 Calcium 7.5 Alanine Aminotr 11 Lipase 394 Albumin 3.2 Xray Hip: Limited evaluation showing a comminuted intertrochanteric fracture of the left hip CT head: Hyperostosis frontalis Xray forearm: negative Xray foot complete R: Linear lucencies projecting over the second, third, and fourth tarsal bases which, due to osteopenia and renal osteodystrophy, may represent overlapping shadows. However, given overlying soft tissue swelling, acute fractures are not excluded. Xray Chest: negative CT abdomen: Markedly distended urinary bladder. Mild associated hydronephrosis. Suggest Flores catheter placement. Atrophic kidneys. Innumerable cysts. Splenomegaly. Atherosclerotic vascular disease. Small retroperitoneal nodes nonspecific. IS: NS 1000ml [facility]: [facility]ending Hospital Stay
--- NOTE | 2018-12-20 14:01 | Pulmonology Progress Note ---
Assessment/Plan Problems: (1) Hip fracture (2) ESRD (end stage renal disease) on dialysis (3) HTN (hypertension) (4) Hypothyroidism (5) Severe anemia (6) Diabetes Assessment/Plan surgery planned for tomorrow HD by nephrology monitor BP sliding scale diabetic diet Subjective ROS Limited/Unobtainable: Yes Constitutional: Reports: no symptoms HEENT: Repors: no symptoms Respiratory: Reports: no symptoms Cardiovascular: Reports: no symptoms Allergies: Coded Allergies: CODEINE (Verified Allergy, Unknown, 10/07/15) ERYTHROMYCIN BASE (Verified Allergy, Unknown, 10/07/15) Objective Last 24 Hour Vital Signs Date Time Temp Pulse Resp B/P (MAP) Pulse Ox O2 Delivery O2 Flow Rate FiO2 12/20/18 12:00 97.4 77 18 75/41 (52) 97 12/20/18 09:57 Room Air 12/20/18 08:00 97.5 79 17 73/39 (50) 96 12/20/18 05:57 77 18 81/49 (60) 96 12/20/18 04:00 99.0 77 16 75/44 (54) 95 12/20/18 01:50 77 85/49 (61) 12/20/18 00:00 97.8 79 18 84/47 (59) 95 12/19/18 21:00 Room Air 12/19/18 20:00 98.2 84 18 93/54 (67) 97 12/19/18 18:32 Room Air 12/19/18 18:28 98.9 71 18 100/55 (70) 98 12/19/18 17:30 97.0 69 18 117/70 100 Room Air 12/19/18 17:00 69 18 117/70 100 Room Air 12/19/18 15:55 65 18 91/56 100 Room Air 12/19/18 15:00 69 18 95/52 100 Room Air Intake and Output 12/19/18 12/20/18 19:00 07:00 Intake Total 500 ml Output Total 2750 ml Balance 500 ml -2750 ml Intake IV Total 500 ml Output Urine Total 2750 ml # Bowel Movements 1 General Appearance: WD/WN HEENT: normocephalic, atraumatic Respiratory/Chest: chest wall non-tender, lungs clear Cardiovascular: normal peripheral pulses, normal rate, regular rhythm Abdomen: normal bowel sounds, soft, non tender Genitourinary: normal external genitalia 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 Lymphatic: no neck adenopathy Microbiology Date/Time Source Procedure Growth Status 12/19/18 17:30 Rectum Received Laboratory Tests 12/19/18 15:45: Urine Opiates Screen [Pending], Urine Barbiturates Screen [Pending], Phencyclidine (PCP) Screen [Pending], Urine Amphetamines Screen [Pending], Urine Benzodiazepines Screen [Pending], Urine Cocaine Screen [Pending], Urine Marijuana (THC) Screen [Pending] 12/20/18 05:25: White Blood Count 3.1L, Red Blood Count 2.10L, Hemoglobin 6.9*L, Hematocrit 20.4L, Mean Corpuscular Volume 97, Mean Corpuscular Hemoglobin 32.7H, Mean Corpuscular Hemoglobin Concent 33.7, Red Cell Distribution Width 18.2H, Platelet Count 96L, Mean Platelet Volume 5.2L, Neutrophils (%) (Auto) , Lymphocytes (%) (Auto) , Monocytes (%) (Auto) , Eosinophils (%) (Auto) , Basophils (%) (Auto) , Differential Total Cells Counted 100, Neutrophils % ( Manual) 55, Lymphocytes % (Manual) 28, Monocytes % (Manual) 12H, Eosinophils % ( Manual) 4H, Basophils % (Manual) 1, Band Neutrophils 0, Platelet Estimate DecreasedL, Platelet Morphology Normal, Hypochromasia 4+, Anisocytosis 2+, Spherocytes 2+, Sodium Level 142, Potassium Level 4.2, Chloride Level 102, Carbon Dioxide Level 29, Anion Gap 11, Blood Urea Nitrogen 62H, Creatinine 9.7H , Estimat Glomerular Filtration Rate 4.0, Glucose Level 78, Hemoglobin A1c 4.0L , Calcium Level 6.5L, Phosphorus Level 7.3H, Total Bilirubin 0.4, Aspartate Amino Transf (AST/SGOT) 15, Alanine Aminotransferase (ALT/SGPT) 12, Alkaline Phosphatase 46, Total Protein 5.7L, Albumin 2.7L, Globulin 3.0, Albumin/ Globulin Ratio 0.9L, Triglycerides Level 78, Cholesterol Level 153, LDL Cholesterol 95, HDL Cholesterol 34L, Cholesterol/HDL Ratio 4.5H, Thyroid Stimulating Hormone (TSH) 1.039 Current Medications Medications (Trade) Dose Ordered Sig/Basil Route PRN Reason Start Time Stop Time Status Last Admin Dose Admin Acetaminophen (Tylenol) 650 mg Q4H PRN ORAL fever 12/19/18 14:45 01/18/19 14:44 Acetaminophen/ Hydrocodone Bitart ([place] 5/325) 1 tab Q6H PRN ORAL For Pain 12/19/18 20:30 12/26/18 20:29 12/20/18 02:03 Albuterol/ Ipratropium (Albuterol/ Ipratropium) 3 ml Q6H PRN HHN dyspnea 12/19/18 14:45 12/24/18 14:44 Alprazolam (Xanax) 0.25 mg BIDPRN PRN ORAL PRN Agitation/Anxiety 12/19/18 14:45 12/26/18 14:44 Clonidine HCl (Catapres Tab) 0.1 mg Q4H PRN ORAL For SBP > 160 12/19/18 14:45 01/18/19 14:44 Dextrose (Dextrose 50%) STAT PRN IV Hypoglycemia 12/19/18 14:45 01/18/19 14:44 Dextrose (Dextrose 50%) STAT PRN IV Hypoglycemia 12/19/18 14:45 01/18/19 14:44 Dextrose/Sodium Chloride 1,000 ml @ 50 mls/hr Q20H IV 12/21/18 00:00 01/20/19 00:00 Docusate Sodium (Colace) 100 mg BID ORAL 12/19/18 18:00 01/18/19 17:59 Epoetin Syd (Epoetin Syd(ESRD on dialysis)) 10,000 unit WED-WED-WED SUBQ 12/21/18 21:00 01/20/19 20:59 Escitalopram Oxalate (Lexapro) 10 mg DAILY ORAL 12/20/18 09:00 01/19/19 08:59 12/20/18 09:32 Furosemide (Lasix) 100 mg Q8H PRN IV dyspnea 12/19/18 14:45 01/18/19 14:44 Heparin Sodium (Porcine) (Heparin 5000 units/ml) 5,000 units EVERY 12 HOURS SUBQ 12/19/18 21:00 01/18/19 20:59 Insulin Aspart (NovoLOG) BEFORE MEALS AND HS SUBQ 12/19/18 21:00 01/18/19 20:59 12/19/18 20:17 Iopamidol (Isovue-300 100ml) 100 ml NOW PRN INJ Radiology Procedure 12/19/18 13:15 Levothyroxine Sodium (Synthroid) 50 mcg ACBREAKFAST ORAL 12/20/18 06:30 01/19/19 06:29 12/20/18 05:52 Midodrine (Pro-Amatine) 10 mg BID ORAL 12/19/18 18:00 01/18/19 17:59 12/20/18 09:32 Olanzapine (ZyPREXA) 5 mg BEDTIME ORAL 12/19/18 21:00 01/18/19 20:59 Ondansetron HCl (Zofran) 4 mg Q6H PRN IVP Nausea & Vomiting 12/19/18 14:45 01/18/19 14:44 Polyethylene Glycol (Miralax) 17 gm HSPRN PRN ORAL Constipation 12/19/18 14:45 01/18/19 14:44 Risperidone (RisperDAL) 6 mg BEDTIME ORAL 12/19/18 21:00 01/18/19 20:59 12/19/18 20:15 Sevelamer Carbonate (Renvela) 800 mg THREE TIMES A DAY ORAL 12/19/18 18:00 01/18/19 17:59 12/20/18 12:25 Zolpidem Tartrate (Ambien) 5 mg HSPRN PRN ORAL Insomnia 12/19/18 14:45 12/26/18 14:44 12/19/18 22:21 Sarah Renee MD Dec 20, 2018 14:01
--- NOTE | 2018-12-20 15:06 | Anethesia Preoperative Eval ---
Anesthesia Pre-op PMH/ROS General Date of Evaluation: Dec 20, 2018 Time of Evaluation: 14:52 Anesthesiologist: Amelie ASA Score: ASA 3 Mallampati Score Class I : Soft palate, uvula, fauces, pillars visible Class II: Soft palate, uvula, fauces visible Class III: Soft palate, base of uvula visible Class IV: Only hard plate visible Mallampati Classification: Class II Surgeon: Amy Diagnosis: L hip Fx Surgical Procedure: ORIF of L hip Fx Anesthesia History: none Family History: no anesthesia problems Allergies: Coded Allergies: CODEINE (Verified Allergy, Unknown, 10/07/15) ERYTHROMYCIN BASE (Verified Allergy, Unknown, 10/07/15) Medications: see eMAR Patient NPO?: Yes Past Medical History Cardiovascular: Denies: HTN, CAD, SC, valve dz, arrhythmia, other Pulmonary: Denies: asthma, COPD, JAY, other Gastrointestinal/Genitourinary: Reports: GERD, ESRD - on HD last session 12/15/18 Neurologic/Psychiatric: Reports: dementia, depression/anxiety; Denies: CVA, TIA, other Endocrine: Reports: DM, hypothyroidism HEENT: Denies: cataract (L), cataract (R), glaucoma, [place] (L), [place] (R), other Hematology/Immune: Reports: anemia - severe anemia; Denies: DVT, bleeding disorder, other Musculoskeletal/Integumentary: Denies: OA, RA, DJD, DDD, edema, other Other: other - malnourished PMH Narrative: admitted for acute mechanical fall, L hip Fx, noted extreme weakness lately. PSxH Narrative: Dialysis access, Anesthesia Pre-op Phys. Exam Physician Exam Last Vital Signs Date Time Temp Pulse Resp B/P (MAP) Pulse Ox O2 Delivery O2 Flow Rate FiO2 12/20/18 12:00 97.4 77 18 75/41 (52) 97 12/20/18 09:57 Room Air Constitutional: NAD Neurologic: CN 2-12 intact Cardiovascular: other - slightly tachicardic, hypotensive 80-s and 70-s, significantly lower than previous admission Respiratory: other - productive cogh, diminishede breath sounds lower lobes bilaterally, some cracles Gastrointestinal: S/NT/ND Airway Exam Mallampati Score: Class II MO: limited Neck: stiff ROM: limited Teeth: missing Dentures: no upper, no lower Anesthesia Pre-op A/P Labs Hematology Test 12/20/18 05:25 White Blood Count 3.1 K/UL (4.8-10.8) L Red Blood Count 2.10 M/UL (4.20-5.40) L Hemoglobin 6.9 G/DL (12.0-16.0) *L Hematocrit 20.4 % (37.0-47.0) L Mean Corpuscular Volume 97 FL (80-99) Mean Corpuscular Hemoglobin 32.7 PG (27.0-31.0) H Mean Corpuscular Hemoglobin Concent 33.7 G/DL (32.0-36.0) Red Cell Distribution Width 18.2 % (11.6-14.8) H Platelet Count 96 K/UL (150-450) L Mean Platelet Volume 5.2 FL (6.5-10.1) L Neutrophils (%) (Auto) % (45.0-75.0) Lymphocytes (%) (Auto) % (20.0-45.0) Monocytes (%) (Auto) % (1.0-10.0) Eosinophils (%) (Auto) % (0.0-3.0) Basophils (%) (Auto) % (0.0-2.0) Differential Total Cells Counted 100 Neutrophils % (Manual) 55 % (45-75) Lymphocytes % (Manual) 28 % (20-45) Monocytes % (Manual) 12 % (1-10) H Eosinophils % (Manual) 4 % (0-3) H Basophils % (Manual) 1 % (0-2) Band Neutrophils 0 % (0-8) Platelet Estimate Decreased L Platelet Morphology Normal Hypochromasia 4+ Anisocytosis 2+ Spherocytes 2+ Chemistry Test 12/20/18 05:25 Sodium Level 142 MMOL/L (136-145) Potassium Level 4.2 MMOL/L (3.5-5.1) Chloride Level 102 MMOL/L (98-107) Carbon Dioxide Level 29 MMOL/L (21-32) Anion Gap 11 mmol/L (5-15) Blood Urea Nitrogen 62 mg/dL (7-18) H Creatinine 9.7 MG/DL (0.55-1.30) H Estimat Glomerular Filtration Rate 4.0 mL/min (>60) Glucose Level 78 MG/DL (74-106) Hemoglobin A1c 4.0 % (4.3-6.0) L Calcium Level 6.5 MG/DL (8.5-10.1) L Phosphorus Level 7.3 MG/DL (2.5-4.9) H Total Bilirubin 0.4 MG/DL (0.2-1.0) Aspartate Amino Transf (AST/SGOT) 15 U/L (15-37) Alanine Aminotransferase (ALT/SGPT) 12 U/L (12-78) Alkaline Phosphatase 46 U/L (46-116) Total Protein 5.7 G/DL (6.4-8.2) L Albumin 2.7 G/DL (3.4-5.0) L Globulin 3.0 g/dL Albumin/Globulin Ratio 0.9 (1.0-2.7) L Triglycerides Level 78 MG/DL (30-150) Cholesterol Level 153 MG/DL (< 200) LDL Cholesterol 95 mg/dL (<100) HDL Cholesterol 34 MG/DL (40-60) L Cholesterol/HDL Ratio 4.5 (3.3-4.4) H Thyroid Stimulating Hormone (TSH) 1.039 uiU/mL (0.358-3.740) Risk Assessment & Plan Assessment: ASA 3 At present time patient is to unstable to undergo Sx either with GA or spinal anesthesia, hypotensive, severely anemic, will have dialysis session later today with transfusion of 2 units of PRBC, needs 12 leads ECG, 2D echo, cardiology consult follow up on CBC and vitals. Plan: GA vs SAB after cardiology clearance, blood transfusion and stabilization of vitals. Alexander Kinsey MD Dec 20, 2018 15:06
--- NOTE | 2018-12-20 19:11 | NUR ---
HAND-OFF: Report given to PRATIMA Terrazas.
--- NOTE | 2018-12-20 19:15 | Consultation ---
DATE OF CONSULTATION: 12/20/2018 ORTHOPEDIC CONSULTATION CONSULTING PHYSICIAN: Ricardo Reyes M.D. REQUESTING PHYSICIAN: Sarah Renee M.D. REASON FOR CONSULTATION: Left hip fracture after a fall. HISTORY OF PRESENT ILLNESS: The patient is a pleasant 68-year-old female, who lives in a nursing facility, who had a mechanical fall yesterday using a walker. She indicates the walker got stuck on a carpet and she tripped and fell over it. She had immediate onset of left hip pain and was transferred to [facility] ER where x-rays are noted a badly comminuted intertrochanteric fracture of the left hip. Orthopedic consult has been called. The patient has a past medical history of end-stage renal disease, diabetes, and is currently on dialysis. PAST MEDICAL HISTORY: End-stage renal disease, on dialysis, as well as diabetes. PAST SURGICAL HISTORY: She had fistula surgeries. CURRENT MEDICATIONS: Please see chart. ALLERGIES: Codeine and erythromycin base. SOCIAL HISTORY: She ambulates with a walker at baseline. She is currently in a facility. PHYSICAL EXAM: She is pleasant and cooperative. On examination, she has a shortened and externally rotated left lower extremity that is painful to palpation. She is neurovascularly intact. IMAGING: X-rays reviewed and hip x-rays are noted to have a comminuted intertrochanteric fracture of left hip. IMPRESSION: Left hip comminuted intertrochanteric fracture. DISCUSSION: At this time, I discussed with the patient my findings. We talked about treatment surgery, but is not interested. She does not want to have surgery. She wants do walking and uses a walker. I discussed with her that I would recommend at this point going forward open reduction internal fixation of the left hip with short versus long gamma nail. She understands and she wants to get this done. She is having dialysis today and a 2D echo has been done. She is anemic today and is getting 2 units of blood during dialysis and she will be optimized prior to surgery. Risks of surgery including nerve injury, vessel injury, risk of infection, bleeding were discussed with her. The risk of fracture, leg-length discrepancy, hardware failure, need for revision surgery down the line were all discussed. She understands and she does want to get this done. All questions were answered at the bedside and case was discussed with the nurse. Ricardo Reyes M.D. Charles Keys DR: PINKY JOB#: [id number] CC:
--- NOTE | 2018-12-20 19:16 | Cardiology Report ---
APPROVED REPORT EXAM: Two-dimensional and M-mode echocardiogram with Doppler and color Doppler. INDICATION PRE-OP M-Mode DIMENSIONS IVSd1.0 (0.7-1.1cm)Left Atrium (MM)2.9 (1.6-4.0cm) LVDd4.4 (3.5-5.6cm)Aortic Root2.6 (2.0-3.7cm) PWd0.9 (0.7-1.1cm)Aortic Cusp Exc.1.5 (1.5-2.0cm) IVSs1.1 cm LVDs3.0 (2.5-4.0cm) PWs0.6 cm Technically difficult study due to poor acoustical windows. Normal left ventricular chamber size, systolic function and wall motion to extend visualized . Left ventricular ejection fraction estimated to be 55-60%. No evidence of left ventricular hypertrophy. No evidence of pericardial effusion. All other cardiac chamber sizes is within normal limits. Focal aortic valve sclerosis with reduced cusp excursion. Thickened mitral valve leaflets with normal excursion. Mitral annulus and aortic root calcification. Normal pulmonic valve structure. Normal tricuspid valve structure. IVC at normal size with slightly physiologic collapse. A color flow and spectral Doppler study was performed and revealed: No aortic insufficiency. Peak aortic valve gradient of 15 mm Hg and a mean of 9 mmHg. Aortic valve area 1.7 cm2 calculated by continuity equation. Mild mitral regurgitation. Mitral diastolic velocities suggest reduced left ventricular relaxation c/w mild LV diastolic dysfunction (Grade I ) Trace tricuspid regurgitation. Tricuspid systolic velocities suggests peak right ventricular systolic pressure of 22 mmHg.
--- NOTE | 2018-12-20 19:17 | Cardiology Progress Note ---
Assessment/Plan Assessment/Plan need tranfusiuon of prbs to [facility] 9.5-10 echo normla lv fucntrion recent [facility] with nasal fractuer but hgb trafused to9-10 level with anemia she will not have any room for futher blood loss will be at low intermediate risk perioperatively trop will be rechecked [id number] Objective Last 24 Hour Vital Signs Date Time Temp Pulse Resp B/P (MAP) Pulse Ox O2 Delivery O2 Flow Rate FiO2 12/20/18 16:06 97.4 12/20/18 16:00 98.2 80 18 74/44 (54) 97 12/20/18 12:00 97.4 77 18 75/41 (52) 97 12/20/18 09:57 Room Air 12/20/18 08:00 97.5 79 17 73/39 (50) 96 12/20/18 05:57 77 18 81/49 (60) 96 12/20/18 04:00 99.0 77 16 75/44 (54) 95 12/20/18 01:50 77 85/49 (61) 12/20/18 00:00 97.8 79 18 84/47 (59) 95 12/19/18 21:00 Room Air 12/19/18 20:00 98.2 84 18 93/54 (67) 97 Intake and Output 12/19/18 12/20/18 19:00 07:00 Intake Total 500 ml Output Total 2750 ml Balance 500 ml -2750 ml Intake IV Total 500 ml Output Urine Total 2750 ml # Bowel Movements 1 Laboratory Tests Test 12/20/18 05:25 White Blood Count 3.1 K/UL (4.8-10.8) L Red Blood Count 2.10 M/UL (4.20-5.40) L Hemoglobin 6.9 G/DL (12.0-16.0) *L Hematocrit 20.4 % (37.0-47.0) L Mean Corpuscular Volume 97 FL (80-99) Mean Corpuscular Hemoglobin 32.7 PG (27.0-31.0) H Mean Corpuscular Hemoglobin Concent 33.7 G/DL (32.0-36.0) Red Cell Distribution Width 18.2 % (11.6-14.8) H Platelet Count 96 K/UL (150-450) L Mean Platelet Volume 5.2 FL (6.5-10.1) L Neutrophils (%) (Auto) % (45.0-75.0) Lymphocytes (%) (Auto) % (20.0-45.0) Monocytes (%) (Auto) % (1.0-10.0) Eosinophils (%) (Auto) % (0.0-3.0) Basophils (%) (Auto) % (0.0-2.0) Differential Total Cells Counted 100 Neutrophils % (Manual) 55 % (45-75) Lymphocytes % (Manual) 28 % (20-45) Monocytes % (Manual) 12 % (1-10) H Eosinophils % (Manual) 4 % (0-3) H Basophils % (Manual) 1 % (0-2) Band Neutrophils 0 % (0-8) Platelet Estimate Decreased L Platelet Morphology Normal Hypochromasia 4+ Anisocytosis 2+ Spherocytes 2+ Sodium Level 142 MMOL/L (136-145) Potassium Level 4.2 MMOL/L (3.5-5.1) Chloride Level 102 MMOL/L (98-107) Carbon Dioxide Level 29 MMOL/L (21-32) Anion Gap 11 mmol/L (5-15) Blood Urea Nitrogen 62 mg/dL (7-18) H Creatinine 9.7 MG/DL (0.55-1.30) H Estimat Glomerular Filtration Rate 4.0 mL/min (>60) Glucose Level 78 MG/DL (74-106) Hemoglobin A1c 4.0 % (4.3-6.0) L Calcium Level 6.5 MG/DL (8.5-10.1) L Phosphorus Level 7.3 MG/DL (2.5-4.9) H Total Bilirubin 0.4 MG/DL (0.2-1.0) Aspartate Amino Transf (AST/SGOT) 15 U/L (15-37) Alanine Aminotransferase (ALT/SGPT) 12 U/L (12-78) Alkaline Phosphatase 46 U/L (46-116) Total Protein 5.7 G/DL (6.4-8.2) L Albumin 2.7 G/DL (3.4-5.0) L Globulin 3.0 g/dL Albumin/Globulin Ratio 0.9 (1.0-2.7) L Triglycerides Level 78 MG/DL (30-150) Cholesterol Level 153 MG/DL (< 200) LDL Cholesterol 95 mg/dL (<100) HDL Cholesterol 34 MG/DL (40-60) L Cholesterol/HDL Ratio 4.5 (3.3-4.4) H Thyroid Stimulating Hormone (TSH) 1.039 uiU/mL (0.358-3.740) Microbiology Date/Time Source Procedure Growth Status 12/19/18 17:30 Rectum Received Harvinder Cuba MD Dec 20, 2018 19:17
--- NOTE | 2018-12-20 19:20 | NUR ---
NURSE NOTES: Received a report from PRATIMA Hickey. Pt is in stable condition. AAOX4. Able to make needs known. On room air. No c/o pain/discomfort. IV site is patent and intact. Dialysis nurse at the bedside. Bed in lowest position. Bed alarm is on. Call light within reach. Will continue to monitor.
[2018-12-20] MEDS ORDERED: PROMETHAZI6.25 MG/1 ORAL (20:57)
[2018-12-20] MEDS ORDERED: RENVELA800 MG ORAL (20:57)
[2018-12-20] MEDS ORDERED: TRAMADOL HCL50 MG ORAL (20:57)
[2018-12-20] MEDS ORDERED: LYRICA75 M1 ORAL (20:57)
[2018-12-20] MEDS: OLANZapine 2.5mg tab ORAL SCH (21:00)
--- NOTE | 2018-12-20 21:00 | NUR ---
NURSE NOTES: Pt refused to be turned and checked the sacral area. Charge Nurse Pau made aware.
--- NOTE | 2018-12-20 21:15 | NUR ---
NURSE NOTES: 2 units of PRBCs given by the hemodialysis nurse.
--- NOTE | 2018-12-20 21:20 | NUR ---
NURSE NOTES: Dialysis nurse took out 1L.
--- NOTE | 2018-12-20 21:45 | Consultation ---
DATE OF CONSULTATION: 12/20/2018 CARDIAC CONSULTATION CONSULTING PHYSICIAN: Harvinder Cuba M.D. REFERRING PHYSICIAN: Sarah Renee M.D. REASON FOR REFERRAL: Preoperative risk assessment. HISTORY OF PRESENT ILLNESS: This is an elderly female, who tripped on some wires and broke her hip, knee surgery. This preoperative consultation was requested. The patient really does not have any chest pain or pressure. No prior history of cardiac condition. There is no orthopnea although she uses three pillows for comfort. There is some dizziness when she stands up. She does have shortness of breath with some activities because of her diagnosis of COPD, she states but never been diagnosed with heart attack or any other cardiac conditions. Back in October of this year, she was over at [facility] because of fall that she took. At that time, she had serial cardiac enzymes checked and all those were negative. She had echo which showed ejection fraction 70%, no regional wall motion abnormalities, peak gradient across the mitral valve of 8 and mean of 3 and peak gradient across the aortic valve of 19 with a mean of 9 and nevertheless she has no prior cardiac history. PAST MEDICAL HISTORY: Positive as mentioned by the patient diabetes for 5 years. She has history of low blood pressure usually. No prior history of heart attack. No cancer. No stroke. No hepatitis or tuberculosis. No asthma. She does have history of emphysema. She does have history of renal failure. No thyroid problems, anemia, arthritis, or HIV. PAST MEDICAL HISTORY: Positive for history of bipolar disorder, hypothyroidism, anemia, end-stage renal disease on hemodialysis, urinary tract infection, diabetes mellitus type 2, on hemodialysis associated with hypotension, septic shock, recurrent urinary tract infections, anemia of chronic renal failure treated with Epogen stage IV, AV shunt malfunctions, diabetes mellitus, diverticulosis. She underwent fracture of her nose for which she underwent plastic surgery in October of 2018 over at [facility]. She did have some hypercarbic respiratory failure with 39-pack year history of smoking with evidence of emphysema on the CT scan, distal colitis, bipolar disorder as mentioned. ALLERGIES: She is allergic to and codeine. SOCIAL HISTORY: She used to smoke, quit approximately 2 to 3 years ago for 29 years. No alcohol. No drugs. She lives at the assisted living. REVIEW OF SYSTEMS: GASTROINTESTINAL: Positive for constipation. GENITOURINARY: She does make some urine. She is on hemodialysis. PULMONARY: She has occasional coughing. No wheezing. No need for inhalers. CONSTITUTIONAL: No fever, chills, or night sweats. NEUROLOGIC: Negative. PHYSICAL EXAMINATION: GENERAL: Shows to be elderly female, in no respiratory distress. NECK: Supple. No jugular venous distention. LUNGS: Appear to be few rhonchi noted. No wheezes. CARDIAC: Regular rate and rhythm. Systolic ejection murmur. No heaves or thrills noted. ABDOMEN: Soft, nontender. Positive bowel sounds. EXTREMITIES: There is no clubbing, cyanosis, nor is there any edema. NEUROLOGICAL: She is awake, alert, and responsive. LABORATORY AND DIAGNOSTIC DATA: White count 3.1, hemoglobin 6.9, and platelet count of 96,000. Sodium is 142, potassium 4.2, chloride 102, bicarb 29, BUN of 62, creatinine 9.7. Phosphorus of 7.3, albumin 2.7. Total cholesterol 150, LDL 95, HDL of 34. TSH of 1.035. Chest x-ray shows no acute disease processes. Her electrocardiogram is not yet performed. An echocardiogram has been performed shows ejection fraction of 55% to 60%, wall motion appears to be normal. There is aortic valve that she calcified but opened adequately. There is a peak gradient of 15 across aortic valve and the mean gradient 9. There is mild mitral regurgitation. There is mild diastolic relaxation abnormalities. An electrocardiogram was found to show normal sinus rhythm with a normal axis, no ST-T and T-wave abnormalities compared to her prior EKGs that were performed at [facility]. This EKG appears really unchanged. ASSESSMENT AND PLAN: 1. Non-syncopal fall. 2. Hip fracture. 3. History of tobacco use disorder. 4. Anemia. 5. Diabetes mellitus with end-organ damage. 6. End-stage renal disease, on hemodialysis. 7. History of bipolar disorder. 8. History of hypothyroidism. Dr. Renee, this patient was seen in cardiac consultation. She does not have any signs or symptoms of coronary syndrome or congestive heart failure on examination. Her echocardiogram shows normal left ventricular systolic function as it did on prior EKGs at [facility]. Her chest x-ray is unremarkable. She does have a component of emphysema. Main issue with her is that she is quite anemic and she is developing a component of thrombocytopenia which she did not have before. [facility] data was reviewed. Laboratory values indicate her hemoglobin was in the past lowest of 7.4 and she has been as high as approximately 10.4. I would recommend transfusing her to get her hemoglobin up to that range and because that was otherwise placed more risk for her. She should have her cell count repeated including her platelet counts as they are low and that may affect her bleeding postoperatively as well. She recently has tolerated the surgery on her nose after fall at [facility] and her cardiac enzymes are negative at that time. Cardiac enzymes had been here as well negative back in November but in the face of the anemia and renal insufficiency, we will repeat those levels again. Harvinder Cuba M.D. DR: Ney JOB#: [id number] CC:
[2018-12-21] VITALS (7 sets, daily range): BP systolic 80–120; BP diastolic 54–94
[2018-12-21] MEDS ORDERED: D5 1/4NS 1000ml 1,000 ML IV SCH
[2018-12-21] MEDS: Zolpidem 5mg tab ORAL PRN ×2 (02:33→20:37)
[2018-12-21] MEDS: NovoLOG Insulin Flexpen SUBQ SCH ×4 (05:55→20:29)
[2018-12-21 06:12] LABS: BASOPHILS % (AUTO) 1.2 % (0.0-2.0); HEMATOCRIT 29.1 % (37.0-47.0); HEMOGLOBIN 9.6 G/DL (12.0-16.0); LYMPHOCYTES % (AUTO) 20.7 % (20.0-45.0); MEAN CORPUSCULAR VOLUME 96 FL (80-99); MONOCYTES % (AUTO) 7.1 % (1.0-10.0); NEUTROPHILS % (AUTO) 67.9 % (45.0-75.0); PLATELET COUNT 102 K/UL (150-450); RED BLOOD COUNT 3.04 M/UL (4.20-5.40); RED CELL DISTRIBUTION WIDTH 16.5 % (11.6-14.8); WHITE BLOOD COUNT 3.9 K/UL (4.8-10.8)
--- NOTE | 2018-12-21 07:10 | NUR ---
HAND-OFF: Report given to Brian Shipley RN.
--- NOTE | 2018-12-21 07:37 | NUR ---
NURSE NOTES: Received report from PRATIMA Terrazas. Patient in bed resting, no active s/s cardiac, respiratory distress noticed at this time. Patient on room air, AOX4, Flores Catheter draining well to gravity. IV on right AC 20G, asymptomatic, patent, intact, AV shunt on left upper FA, present thrill, bruit. Endorsed HD yesterday 12/20/18, 1L out, per yaneli Nichols to give [place] with low BP and schedule for surgery on 12/22/18. Bed in lowest position, side rails upx2, call light within reach. Will continue to monitor.
[2018-12-21] MEDS: Renvela 800mg Pkt ORAL SCH ×3 (08:20→17:12)
[2018-12-21] MEDS: Midodrine 10mg tab ORAL SCH ×2 (08:20→17:12)
[2018-12-21] MEDS: Heparin 5000 units/ml inj SUBQ SCH ×2 (08:21→20:20)
[2018-12-21] MEDS: Docusate 100mg cap ORAL SCH ×2 (08:21→17:12)
--- NOTE | 2018-12-21 08:36 | Nephrology Progress Note ---
Assessment/Plan Assessment 1. End-stage renal disease. 2. Anemia of chronic kidney disease. 3. Renal osteodystrophy. 4. Status post fall. 5. Possible left hip pain versus fracture. Plan dialysis as schedule monitoring phos,pth continue epogen pain management surgery schedule for today Subjective Subjective alert and awake she is c/o left hip pain had dialysis going for surgery today Objective Objective Last 24 Hour Vital Signs Date Time Temp Pulse Resp B/P (MAP) Pulse Ox O2 Delivery O2 Flow Rate FiO2 12/21/18 04:00 98.3 78 16 80/54 (63) 94 12/21/18 00:00 98.8 16 99/62 (74) 93 12/20/18 22:10 98.1 14 138/80 (99) 98 12/20/18 21:00 Room Air 12/20/18 20:00 98.0 70 20 88/55 (66) 94 12/20/18 16:06 97.4 12/20/18 16:00 98.2 80 18 74/44 (54) 97 12/20/18 12:00 97.4 77 18 75/41 (52) 97 12/20/18 09:57 Room Air Intake and Output 12/20/18 12/21/18 19:00 07:00 # Voids 2 Laboratory Tests 12/21/18 05:31: White Blood Count 3.9L, Red Blood Count 3.04L, Hemoglobin 9.6#L, Hematocrit 29.1 #L, Mean Corpuscular Volume 96, Mean Corpuscular Hemoglobin 31.6H, Mean Corpuscular Hemoglobin Concent 33.1, Red Cell Distribution Width 16.5H, Platelet Count 102L, Mean Platelet Volume 6.2L, Neutrophils (%) (Auto) 67.9, Lymphocytes (%) (Auto) 20.7, Monocytes (%) (Auto) 7.1, Eosinophils (%) (Auto) 3.0, Basophils (%) (Auto) 1.2 Height (Feet): 5 Height (Inches): 7.00 Weight (Pounds): 131 Objective HEAD AND NECK: No JVP. No LAD. No thyromegaly. Extraocular movements intact. Pupils are reactive to light and accommodation. LUNGS: Clear to auscultation. CARDIAC: Regular rate and rhythm. S1, S2. No murmur. No rub. ABDOMEN: Soft. Bowel sounds positive. EXTREMITIES: No edema. No clubbing. No cyanosis. Gwen Mccray MD Dec 21, 2018 08:36
--- NOTE | 2018-12-21 09:21 | NUR ---
NURSE NOTES: Called surgery department for clarification, per surgery department ORIF schedule for tomorrow 12/22/18.
--- NOTE | 2018-12-21 11:25 | Anethesia Preoperative Eval ---
Anesthesia Pre-op PMH/ROS General Date of Evaluation: Dec 21, 2018 Time of Evaluation: 11:17 Anesthesiologist: Becky ASA Score: ASA 4 Mallampati Score Class I : Soft palate, uvula, fauces, pillars visible Class II: Soft palate, uvula, fauces visible Class III: Soft palate, base of uvula visible Class IV: Only hard plate visible Mallampati Classification: Class II Surgeon: Amy Diagnosis: L Hip Pain Surgical Procedure: L Hip ORIF Anesthesia History: none Family History: no anesthesia problems Allergies: Coded Allergies: CODEINE (Verified Allergy, Unknown, 10/07/15) ERYTHROMYCIN BASE (Verified Allergy, Unknown, 10/07/15) Medications: see eMAR Patient NPO?: Yes Past Medical History Cardiovascular: Reports: HTN Gastrointestinal/Genitourinary: Reports: GERD, ESRD - On HD Last 12/15 Neurologic/Psychiatric: Reports: dementia, depression/anxiety, other - Bipolar Endocrine: Reports: DM, hypothyroidism Hematology/Immune: Reports: anemia, DVT Anesthesia Pre-op Phys. Exam Physician Exam Last Vital Signs Date Time Temp Pulse Resp B/P (MAP) Pulse Ox O2 Delivery O2 Flow Rate FiO2 12/21/18 09:00 Room Air 12/21/18 08:00 98.1 81 17 82/56 (65) 96 Constitutional: NAD Neurologic: CN 2-12 intact Cardiovascular: RRR Respiratory: CTA Gastrointestinal: S/NT/ND Airway Exam Mallampati Score: Class II MO: limited ROM: limited Teeth: missing Anesthesia Pre-op A/P Labs Hematology Test 12/21/18 05:31 White Blood Count 3.9 K/UL (4.8-10.8) L Red Blood Count 3.04 M/UL (4.20-5.40) L Hemoglobin 9.6 G/DL (12.0-16.0) #L Hematocrit 29.1 % (37.0-47.0) #L Mean Corpuscular Volume 96 FL (80-99) Mean Corpuscular Hemoglobin 31.6 PG (27.0-31.0) H Mean Corpuscular Hemoglobin Concent 33.1 G/DL (32.0-36.0) Red Cell Distribution Width 16.5 % (11.6-14.8) H Platelet Count 102 K/UL (150-450) L Mean Platelet Volume 6.2 FL (6.5-10.1) L Neutrophils (%) (Auto) 67.9 % (45.0-75.0) Lymphocytes (%) (Auto) 20.7 % (20.0-45.0) Monocytes (%) (Auto) 7.1 % (1.0-10.0) Eosinophils (%) (Auto) 3.0 % (0.0-3.0) Basophils (%) (Auto) 1.2 % (0.0-2.0) Risk Assessment & Plan Assessment: ASA 4 Plan: GA vs Spinal Status Change Before Surgery: No Pre-Antibiotics Drug: Avi Cox MD Dec 21, 2018 11:25
[2018-12-21] MEDS: HYDROcodone/Acetamin 10/325 tab ORAL PRN (11:41)
--- NOTE | 2018-12-21 13:28 | NUR ---
NURSE NOTES: Called Dr. Mccray for clarification HD schedule same day as surgery. Per Dr. Mccray, continue HD tomorrow 12/22/18 after surgery. Order noted, entered, carried out. Called [facility] nephrology tele : [phone], spoke with Elio and informed patient schedule for HD tomorrow 12/22/[address] Mccray.
--- NOTE | 2018-12-21 13:37 | NUR ---
RD ASSESSMENT & RECOMMENDATIONS SEE CARE ACTIVITY FOR COMPLETE ASSESSMENT DAILY ESTIMATED NEEDS: Needs based on ESRD on HD, wound 59.5kg 30-35 kcals/kg 5115-6225 total kcals 1.25-1.8 g protein/kg 74-107 g total protein Fluid per MD, on HD NUTRITION DIAGNOSIS: Increased KCAL and protein needs R/T renal dysfunction, ESRD and wound healing as evidenced by pt w/ ESRD on HD, w/ sacral and R toe partial thickness wound. CURRENT DIET: Now [facility] PO DIET RECOMMENDATIONS: DIET CHANGE TO RENAL ADDITIONAL RECOMMENDATIONS: 1) Obtain a calibrated bed scale wt as able 2) Add NEPRO 1 tetra jm daily Add snacks in b/w meals 3) Wound care: add CLAIRE BID + Nephrovite daily
--- NOTE | 2018-12-21 13:53 | Pulmonology Progress Note ---
Assessment/Plan Problems: (1) Hip fracture (2) ESRD (end stage renal disease) on dialysis (3) HTN (hypertension) (4) Hypothyroidism (5) Severe anemia (6) Diabetes Assessment/Plan surgery planned for tomorrow ( rescheduled0 d/w reinforcement maker, Dr. Cuba. pt is optimized for surgery HD by nephrology monitor BP sliding scale diabetic diet Subjective ROS Limited/Unobtainable: No Constitutional: Reports: no symptoms HEENT: Repors: no symptoms Respiratory: Reports: no symptoms Allergies: Coded Allergies: CODEINE (Verified Allergy, Unknown, 10/07/15) ERYTHROMYCIN BASE (Verified Allergy, Unknown, 10/07/15) Objective Last 24 Hour Vital Signs Date Time Temp Pulse Resp B/P (MAP) Pulse Ox O2 Delivery O2 Flow Rate FiO2 12/21/18 12:00 98.1 90 18 81/55 (64) 96 12/21/18 09:00 Room Air 12/21/18 08:00 98.1 81 17 82/56 (65) 96 12/21/18 04:00 98.3 78 16 80/54 (63) 94 12/21/18 00:00 98.8 16 99/62 (74) 93 12/20/18 22:10 98.1 14 138/80 (99) 98 12/20/18 21:00 Room Air 12/20/18 20:00 98.0 70 20 88/55 (66) 94 12/20/18 16:06 97.4 12/20/18 16:00 98.2 80 18 74/44 (54) 97 Intake and Output 12/20/18 12/21/18 19:00 07:00 # Voids 2 General Appearance: WD/WN HEENT: normocephalic, atraumatic Respiratory/Chest: lungs clear, no respiratory distress Breasts: no masses Cardiovascular: regular rhythm Abdomen: soft, non tender Genitourinary: normal external genitalia Extremities: no clubbing Microbiology Date/Time Source Procedure Growth Status 12/19/18 15:45 Nasal Nares MRSA Culture - Final NO METHICILLIN RESISTANT STAPH AUREUS... Complete 12/19/18 17:30 Rectum - Final NO CARBAPENEM-RESISTANT ENTEROBACTERI... Complete 12/19/18 15:45 Rectum VRE Culture - Final NO VANCOMYCIN RESISTANT ENTEROCOCCUS ... Complete Laboratory Tests 12/21/18 05:31: White Blood Count 3.9L, Red Blood Count 3.04L, Hemoglobin 9.6#L, Hematocrit 29.1 #L, Mean Corpuscular Volume 96, Mean Corpuscular Hemoglobin 31.6H, Mean Corpuscular Hemoglobin Concent 33.1, Red Cell Distribution Width 16.5H, Platelet Count 102L, Mean Platelet Volume 6.2L, Neutrophils (%) (Auto) 67.9, Lymphocytes (%) (Auto) 20.7, Monocytes (%) (Auto) 7.1, Eosinophils (%) (Auto) 3.0, Basophils (%) (Auto) 1.2 Current Medications Medications (Trade) Dose Ordered Sig/Basil Route PRN Reason Start Time Stop Time Status Last Admin Dose Admin Acetaminophen (Tylenol) 650 mg Q4H PRN ORAL fever 12/19/18 14:45 01/18/19 14:44 Acetaminophen/ Hydrocodone Bitart (Warren 10/325) 1 tab Q6H PRN ORAL For Pain 12/21/18 08:45 12/28/18 08:44 12/21/18 11:41 Albuterol/ Ipratropium (Albuterol/ Ipratropium) 3 ml Q6H PRN HHN dyspnea 12/19/18 14:45 12/24/18 14:44 Alprazolam (Xanax) 0.25 mg BIDPRN PRN ORAL PRN Agitation/Anxiety 12/19/18 14:45 12/26/18 14:44 Clonidine HCl (Catapres Tab) 0.1 mg Q4H PRN ORAL For SBP > 160 12/19/18 14:45 01/18/19 14:44 Dextrose (Dextrose 50%) STAT PRN IV Hypoglycemia 12/19/18 14:45 01/18/19 14:44 Dextrose (Dextrose 50%) STAT PRN IV Hypoglycemia 12/19/18 14:45 01/18/19 14:44 Dextrose/Sodium Chloride 1,000 ml @ 50 mls/hr Q20H IV 12/22/18 00:00 01/21/19 00:00 Docusate Sodium (Colace) 100 mg BID ORAL 12/19/18 18:00 01/18/19 17:59 Epoetin Syd (Epoetin Syd(ESRD on dialysis)) 10,000 unit WED-WED-WED SUBQ 12/21/18 21:00 01/20/19 20:59 Escitalopram Oxalate (Lexapro) 10 mg DAILY ORAL 12/20/18 09:00 01/19/19 08:59 12/21/18 08:20 Furosemide (Lasix) 100 mg Q8H PRN IV dyspnea 12/19/18 14:45 01/18/19 14:44 Heparin Sodium (Porcine) (Heparin 5000 units/ml) 5,000 units EVERY 12 HOURS SUBQ 12/19/18 21:00 01/18/19 20:59 Insulin Aspart (NovoLOG) BEFORE MEALS AND HS SUBQ 12/19/18 21:00 01/18/19 20:59 12/21/18 11:44 Iopamidol (Isovue-300 100ml) 100 ml NOW PRN INJ Radiology Procedure 12/19/18 13:15 Levothyroxine Sodium (Synthroid) 50 mcg ACBREAKFAST ORAL 12/20/18 06:30 01/19/19 06:29 12/21/18 06:15 Midodrine (Pro-Amatine) 10 mg BID ORAL 12/19/18 18:00 01/18/19 17:59 12/21/18 08:20 Olanzapine (ZyPREXA) 5 mg BEDTIME ORAL 12/21/18 21:00 01/18/19 20:59 Ondansetron HCl (Zofran) 4 mg Q6H PRN IVP Nausea & Vomiting 12/19/18 14:45 01/18/19 14:44 Polyethylene Glycol (Miralax) 17 gm HSPRN PRN ORAL Constipation 12/19/18 14:45 01/18/19 14:44 Risperidone (RisperDAL) 6 mg BEDTIME ORAL 12/19/18 21:00 01/18/19 20:59 12/20/18 22:17 Sevelamer Carbonate (Renvela) 800 mg THREE TIMES A DAY ORAL 12/19/18 18:00 01/18/19 17:59 12/21/18 08:20 Zolpidem Tartrate (Ambien) 5 mg HSPRN PRN ORAL Insomnia 12/19/18 14:45 12/26/18 14:44 12/21/18 02:33 Sarah Renee MD Dec 21, 2018 13:53
--- NOTE | 2018-12-21 15:00 | NUR ---
NURSE NOTES: Patient educated importance of turning and prevention method of putting Optifoam on sacral area due to immobilization. Patient AOx4, due to pain, pt stated don't do it at this time.
--- NOTE | 2018-12-21 19:00 | NUR ---
NURSE NOTES: Received a report from Brian Shipley RN. Pt is in stable condition. AAOX4. Able to make needs known. On room air. No c/o pain/discomfort. IV site is patent and intact. Flores catheter is draining. Bed in lowest position. Bed alarm is on. Call light within reach. Will continue to monitor.
--- NOTE | 2018-12-21 19:06 | NUR ---
CASE MANAGEMENT: REVIEW SI: S/P FALL . ESRD ON HD . ACUTE HEAD INJURY . LEFT HIP FRACTURE LEFT HIP ORIF EVAL T 97.7 HR 72 RR 18 BP 80/54 SAT 94% ROOM AIR WBC 3.9 H/H 9.6/29.[address] 102 IS: D5 1/2 NS IVF@50ML/HR COLACE PO BID MIDODRINE PO BID EPOETIN SUBQ MWF HEPARIN SUBQ Q12HR 2 UNITS PRBC MED/SURG STATUS DCP: PATIENT IS FROM [facility]
--- NOTE | 2018-12-21 19:08 | NUR ---
HAND-OFF: Report given to PRATIMA Terrazas.
--- NOTE | 2018-12-21 19:29 | Cardiology Progress Note ---
Assessment/Plan Assessment/Plan 1. Non-syncopal fall. 2. Hip fracture. 3. History of tobacco use disorder. 4. Anemia. 5. Diabetes mellitus with end-organ damage. 6. End-stage renal disease, on hemodialysis. 7. History of bipolar disorder. 8. History of hypothyroidism s/p prbc tx bp on thelow side but per pt chronically low avoid sig UF prior to surgery to avoid mroe drop intermediate risk of perioperative cardiac morbidity as noted in my note yest post op may be on tele or sdu for closer monitoring Subjective Cardiovascular: Denies: chest pain, irregular heart rate, lightheadedness Respiratory: Denies: shortness of breath Gastrointestinal/Abdominal: Denies: abdominal pain Objective Last 24 Hour Vital Signs Date Time Temp Pulse Resp B/P (MAP) Pulse Ox O2 Delivery O2 Flow Rate FiO2 12/21/18 16:00 97.7 72 18 98/60 (73) 96 12/21/18 12:00 98.1 90 18 81/55 (64) 96 12/21/18 09:00 Room Air 12/21/18 08:00 98.1 81 17 82/56 (65) 96 12/21/18 04:00 98.3 78 16 80/54 (63) 94 12/21/18 00:00 98.8 16 99/62 (74) 93 12/20/18 22:10 98.1 14 138/80 (99) 98 12/20/18 21:00 Room Air 12/20/18 20:00 98.0 70 20 88/55 (66) 94 General Appearance: no apparent distress, alert Neck: supple Cardiovascular: normal rate Respiratory/Chest: lungs clear Abdomen: normal bowel sounds, non tender, soft Extremities: no swelling Intake and Output 12/20/18 12/21/18 19:00 07:00 # Voids 2 Laboratory Tests Test 12/21/18 05:31 White Blood Count 3.9 K/UL (4.8-10.8) L Red Blood Count 3.04 M/UL (4.20-5.40) L Hemoglobin 9.6 G/DL (12.0-16.0) #L Hematocrit 29.1 % (37.0-47.0) #L Mean Corpuscular Volume 96 FL (80-99) Mean Corpuscular Hemoglobin 31.6 PG (27.0-31.0) H Mean Corpuscular Hemoglobin Concent 33.1 G/DL (32.0-36.0) Red Cell Distribution Width 16.5 % (11.6-14.8) H Platelet Count 102 K/UL (150-450) L Mean Platelet Volume 6.2 FL (6.5-10.1) L Neutrophils (%) (Auto) 67.9 % (45.0-75.0) Lymphocytes (%) (Auto) 20.7 % (20.0-45.0) Monocytes (%) (Auto) 7.1 % (1.0-10.0) Eosinophils (%) (Auto) 3.0 % (0.0-3.0) Basophils (%) (Auto) 1.2 % (0.0-2.0) Microbiology Date/Time Source Procedure Growth Status 12/19/18 15:45 Nasal Nares MRSA Culture - Final NO METHICILLIN RESISTANT STAPH AUREUS... Complete 12/19/18 17:30 Rectum - Final NO CARBAPENEM-RESISTANT ENTEROBACTERI... Complete 12/19/18 15:45 Rectum VRE Culture - Final NO VANCOMYCIN RESISTANT ENTEROCOCCUS ... Complete Harvinder Cuba MD Dec 21, 2018 19:29
--- NOTE | 2018-12-21 20:00 | NUR ---
NURSE NOTES: Left a voicemail to Dr. Mccray regarding the pt refusing the hemodialysis tomorrow. According to the pt, it will be too much to handle the hemodialysis after the surgery. Awaiting for Dr. Mccray's call back. Charge Nurse Pau made aware. Will endorse it to the morning nurse.
[2018-12-21] MEDS: Epoetin Alfa-EPBX(ESRD on dialysis)10,000 unit/ml vial SUBQ SCH (20:27)
--- NOTE | 2018-12-21 20:30 | NUR ---
NURSE NOTES: Educated the pt about the importance of turning and repositioning. However, the pt refused it. She also refused the skin assessment. Charge Nurse Pau made aware.
[2018-12-21] MEDS: D5 1/2NS 1,000 ML IV SCH (23:42)
[2018-12-22] VITALS (19 sets, daily range): BP systolic 59–91; BP diastolic 35–60
[2018-12-22] MEDS ORDERED: Bacitracin 50000 Units Vial ONE ×2 (06:12→06:13)
[2018-12-22] MEDS ORDERED: NeoSporin Gu Irrig 1ml Amp IRRIG ONE ×2 (06:12→06:13)
[2018-12-22] MEDS ORDERED: Bupivacaine 0.5% Inj 30 ml vial INJ ONE (06:12)
[2018-12-22] MEDS: NovoLOG Insulin Flexpen SUBQ SCH ×4 (06:15→20:41)
[2018-12-22] MEDS ORDERED: NS Irrig 1000ml IRRIG ONE ×2 (06:17→07:16)
[2018-12-22] MEDS ORDERED: Zemuron 50mg/5ml Inj IV ONE (06:25)
[2018-12-22] MEDS ORDERED: Lidocaine 1% MPF 10mg/ml 5ml ONE (06:27)
[2018-12-22] MEDS ORDERED: Propofol 200mg/20ml IV ONE (06:27)
[2018-12-22] MEDS ORDERED: fentaNYL 100 mcg/2 mL IV ONE (06:27)
[2018-12-22] MEDS ORDERED: Midazolam 2mg/2ml Inj ONE (06:27)
[2018-12-22] MEDS ORDERED: Etomidate 40mg/20ml Inj IV ONE (06:30)
--- NOTE | 2018-12-22 06:30 | NUR ---
NURSE NOTES: Pt got picked up by [facility], the transporter, for the surgery.
--- NOTE | 2018-12-22 06:51 | Pre-Procedure Note/Attestation ---
Pre-Procedure Note/Attestation Complete Prior to Procedure Planned Procedure: left Procedure Narrative: left hip fracture Indications for Procedure Pre-Operative Diagnosis: left hip ORIF Attestation I attest that I discussed the nature of the procedure; its benefits; risks and complications; and alternatives (and the risks and benefits of such alternatives ), prior to the procedure, with the patient (or the patient's legal bank representative). I attest that, if there was a reasonable possibility of needing a blood transfusion, the patient (or the patient's legal bank representative) was given the [facility] standardized written summary, pursuant to the [place] Blood Safety Act ([place] Health and Safety Code # 1645, as amended). I attest that I re-evaluated the patient just prior to the surgery and that there has been no change in the patient's H&P, except as documented below: NONE Ricardo Reyes MD Dec 22, 2018 06:50
[2018-12-22] MEDS ORDERED: Milk of Magnesia 30ml Ud ORAL PRN (07:00)
[2018-12-22] MEDS ORDERED: Sterile Water Irrig 1000ml IRRIG ONE (07:00)
[2018-12-22] MEDS ORDERED: HYDROmorphone 1mg/ml Carpuject SUBQ PRN (07:00)
--- NOTE | 2018-12-22 07:05 | NUR ---
NURSE NOTES: Patient off the unit for procedure, report received. RN to confirm with patient regarding hemodialysis today. Will inform Dr. Mccray thereafter depending on her decision.
--- NOTE | 2018-12-22 07:10 | NUR ---
HAND-OFF: Report given to Alka Hyde RN. Endorsed to follow up with Dr. Mccray about the pt refusing the hemodialysis today.
[2018-12-22] MEDS ORDERED: Miralax 17gm pkt ORAL PRN (07:15)
[2018-12-22] MEDS ORDERED: Dexamethasone 4mg/ml vial ONE (07:26)
--- NOTE | 2018-12-22 08:38 | Brief Operative Note ---
Immediate Post Operative Note Operative Note Chief Complaint: left hip fracture Pre-op Diagnosis: left hip IT fracture Procedure: left hip ORIF Post-op Diagnosis: same as pre-op Findings: consistent w/pre-op dx studies Surgeon: md michela Machine Setter And Repairer: pat haines Anesthesiologist: md sharif Anesthesia: general Specimen: none Complications: none Condition: stable Fluids: ns Estimated Blood Loss: minimal Drains: none Implant(s) used?: Yes - Gwendolyn Lopez Dec 22, 2018 08:38
--- NOTE | 2018-12-22 08:58 | Immediate Post-Op Evaluation ---
Immediate Post-Op Evalulation Immediate Post-Op Evalulation Procedure: Left hip ORIF Date of Evaluation: Dec 22, 2018 Time of Evaluation: 08:55 IV Fluids: 400 Blood Products: 0 Estimated Blood Loss: 300 Urinary Output: 0 Pulse Rate: 89 Respiratory Rate: 18 O2 Sat by Pulse Oximetry: 100 Temperature (Fahrenheit): 98.7 Pain Score (1-10): 0 Nausea: No Vomiting: No Complications 0 Patient Status: awake, reacts, patent, none Hydration Status: adequate Drug: Ancef 1g Given Within 1 Hr of Incision: Yes Ilsa Corral MD Dec 22, 2018 08:58
[2018-12-22] MEDS: Renvela 800mg Pkt ORAL SCH ×3 (09:00→17:09)
[2018-12-22] MEDS: Docusate 100mg cap ORAL SCH ×3 (09:00→17:09)
[2018-12-22] MEDS ORDERED: Aspirin Baby 81mg ORAL SCH (09:00)
[2018-12-22] MEDS: Heparin 5000 units/ml inj SUBQ SCH (09:00)
--- NOTE | 2018-12-22 09:56 | Nephrology Progress Note ---
Assessment/Plan Assessment 1. End-stage renal disease. 2. Anemia of chronic kidney disease. 3. Renal osteodystrophy. 4. Status post fall. 5. Possible left hip pain versus fracture. Plan dialysis as schedule (will check stat bmp if electrolyte are within acceptable level will postpone dialysis for AM ) monitoring phos,pth continue epogen pain management Subjective Subjective alert and awake in recovery room she would like to postpone dialysis Objective Objective Last 24 Hour Vital Signs Date Time Temp Pulse Resp B/P (MAP) Pulse Ox O2 Delivery O2 Flow Rate FiO2 12/22/18 09:50 95 24 73/43 100 Nasal Cannula 3 12/22/18 09:40 94 26 73/37 100 Nasal Cannula 3 12/22/18 09:35 96 22 69/41 100 Nasal Cannula 3 12/22/18 09:30 96 24 71/41 100 Nasal Cannula 3 12/22/18 09:25 97 16 69/43 100 Nasal Cannula 3 12/22/18 09:20 95 20 67/40 100 Nasal Cannula 3 12/22/18 09:15 97 12 69/43 100 Nasal Cannula 3 12/22/18 09:10 100 14 71/41 100 Nasal Cannula 3 12/22/18 09:05 100 12 69/44 100 Simple Mask 6 12/22/18 09:00 100 12 69/42 100 Simple Mask 6 12/22/18 08:58 89 18 100 12/22/18 08:55 96 24 61/37 100 Simple Mask 6 12/22/18 08:50 98.7 91 24 59/35 100 Simple Mask 6 12/22/18 04:00 98.5 92 16 91/60 (70) 94 12/21/18 23:58 98.1 99 16 120/94 (103) 96 12/21/18 21:00 Room Air 12/21/18 20:00 99.1 73 14 92/57 (69) 94 12/21/18 16:00 97.7 72 18 98/60 (73) 96 12/21/18 12:00 98.1 90 18 81/55 (64) 96 Intake and Output 12/21/18 12/22/18 19:00 07:00 Intake Total 820 ml 300 ml Output Total 800 ml 400 ml Balance 20 ml -100 ml Intake Oral 820 ml IV Total 300 ml Output Urine Total 800 ml 400 ml # Bowel Movements 1 Height (Feet): 5 Height (Inches): 7.00 Weight (Pounds): 132 Objective HEAD AND NECK: No JVP. No LAD. No thyromegaly. Extraocular movements intact. Pupils are reactive to light and accommodation. LUNGS: Clear to auscultation. CARDIAC: Regular rate and rhythm. S1, S2. No murmur. No rub. ABDOMEN: Soft. Bowel sounds positive. EXTREMITIES: No edema. No clubbing. No cyanosis. Gwen Mccray MD Dec 22, 2018 09:56
[2018-12-22 10:29] LABS: ANION GAP 14 mmol/L (5-15); BLOOD UREA NITROGEN 53 mg/dL (7-18); CARBON DIOXIDE 27 MMOL/L (21-32); CHLORIDE 98 MMOL/L (98-107); CREATININE 8.5 MG/DL (0.55-1.30); POTASSIUM 4.3 MMOL/L (3.5-5.1); SODIUM 139 MMOL/L (136-145)
[2018-12-22 10:33] LABS: ALANINE AMINOTRANSFERASE 11 U/L (12-78); ALBUMIN 2.6 G/DL (3.4-5.0); ALBUMIN/GLOBULIN RATIO 0.8 (1.0-2.7); ALKALINE PHOSPHATASE 45 U/L (46-116); ASPARTATE AMINO TRANSFERASE 14 U/L (15-37); BILIRUBIN,TOTAL 0.5 MG/DL (0.2-1.0)
[2018-12-22] MEDS: Midodrine 10mg tab ORAL SCH ×2 (10:54→17:09)
--- NOTE | 2018-12-22 11:48 | Diagnostic Imaging Report ---
Indication: Postoperative, status post ORIF of left hip fracture; pain Technique: One view of the pelvis Comparison: Atrial 2019 Findings: Interim surgical repair of previously demonstrated left hip intertrochanteric fracture with compression screw and medullary joey. Good anatomic alignment of the fragments and hardware. Retained air from the surgical exposure is seen within the soft tissues. There is a Flores catheter in place. There is considerable rectal stool incidentally noted Impression: Postoperative left hip. No unusual features
--- NOTE | 2018-12-22 13:27 | Pulmonology Progress Note ---
Assessment/Plan Problems: (1) Hip fracture (2) ESRD (end stage renal disease) on dialysis (3) HTN (hypertension) (4) Hypothyroidism (5) Severe anemia (6) Diabetes Assessment/Plan surgery done, d/w driller operator, Dr. Cuba. pt is optimized for surgery HD by nephrology monitor BP sliding scale diabetic diet dc planning Subjective Constitutional: Reports: no symptoms HEENT: Repors: no symptoms Respiratory: Reports: no symptoms Allergies: Coded Allergies: CODEINE (Verified Allergy, Unknown, 10/07/15) ERYTHROMYCIN BASE (Verified Allergy, Unknown, 10/07/15) Objective Last 24 Hour Vital Signs Date Time Temp Pulse Resp B/P (MAP) Pulse Ox O2 Delivery O2 Flow Rate FiO2 12/22/18 12:00 98.4 111 19 61/35 (44) 99 12/22/18 10:20 97.2 104 24 88/39 100 Nasal Cannula 3 12/22/18 10:10 88 24 88/39 100 Nasal Cannula 3 12/22/18 10:00 95 24 83/41 100 Nasal Cannula 3 12/22/18 09:50 95 24 73/43 100 Nasal Cannula 3 12/22/18 09:40 94 26 73/37 100 Nasal Cannula 3 12/22/18 09:35 96 22 69/41 100 Nasal Cannula 3 12/22/18 09:30 96 24 71/41 100 Nasal Cannula 3 12/22/18 09:25 97 16 69/43 100 Nasal Cannula 3 12/22/18 09:20 95 20 67/40 100 Nasal Cannula 3 12/22/18 09:15 97 12 69/43 100 Nasal Cannula 3 12/22/18 09:10 100 14 71/41 100 Nasal Cannula 3 12/22/18 09:05 100 12 69/44 100 Simple Mask 6 12/22/18 09:00 Room Air 12/22/18 09:00 100 12 69/42 100 Simple Mask 6 12/22/18 08:58 89 18 100 12/22/18 08:55 96 24 61/37 100 Simple Mask 6 12/22/18 08:50 98.7 91 24 59/35 100 Simple Mask 6 12/22/18 04:00 98.5 92 16 91/60 (70) 94 12/21/18 23:58 98.1 99 16 120/94 (103) 96 12/21/18 21:00 Room Air 12/21/18 20:00 99.1 73 14 92/57 (69) 94 12/21/18 16:00 97.7 72 18 98/60 (73) 96 Intake and Output 12/21/18 12/22/18 19:00 07:00 Intake Total 820 ml 300 ml Output Total 800 ml 400 ml Balance 20 ml -100 ml Intake Oral 820 ml IV Total 300 ml Output Urine Total 800 ml 400 ml # Bowel Movements 1 General Appearance: cachetic HEENT: normocephalic, atraumatic Respiratory/Chest: chest wall non-tender Breasts: no masses Cardiovascular: normal rate Abdomen: normal bowel sounds, no organomegaly Genitourinary: normal external genitalia Extremities: no clubbing Skin: no rash Microbiology Date/Time Source Procedure Growth Status 12/19/18 15:45 Nasal Nares MRSA Culture - Final NO METHICILLIN RESISTANT STAPH AUREUS... Complete 12/19/18 17:30 Rectum - Final NO CARBAPENEM-RESISTANT ENTEROBACTERI... Complete 12/19/18 15:45 Rectum VRE Culture - Final NO VANCOMYCIN RESISTANT ENTEROCOCCUS ... Complete Laboratory Tests 12/22/18 10:15: Sodium Level 139, Potassium Level 4.3, Chloride Level 98, Carbon Dioxide Level 27, Anion Gap 14, Blood Urea Nitrogen 53H, Creatinine 8.5H, Estimat Glomerular Filtration Rate 4.7, Glucose Level 158H, Calcium Level 7.0L, Total Bilirubin 0.5 , Aspartate Amino Transf (AST/SGOT) 14L, Alanine Aminotransferase (ALT/SGPT) 11L , Alkaline Phosphatase 45L, Total Protein 6.0L, Albumin 2.6L, Globulin 3.4, Albumin/Globulin Ratio 0.8L Current Medications Medications (Trade) Dose Ordered Sig/Basil Route PRN Reason Start Time Stop Time Status Last Admin Dose Admin Acetaminophen (Tylenol) 650 mg Q4H PRN ORAL Mild Pain (Pain Scale 1-3) 12/22/18 07:00 01/21/19 06:59 Acetaminophen/ Hydrocodone Bitart ([place] 10/325) 1 tab Q6H PRN ORAL For Pain 12/21/18 08:45 12/28/18 08:44 12/21/18 11:41 Albuterol/ Ipratropium (Albuterol/ Ipratropium) 3 ml Q6H PRN HHN dyspnea 12/19/18 14:45 12/24/18 14:44 Alprazolam (Xanax) 0.25 mg BIDPRN PRN ORAL PRN Agitation/Anxiety 12/19/18 14:45 12/26/18 14:44 Aspirin (ASA) 81 mg BID ORAL 12/22/18 09:00 01/21/19 08:59 Bisacodyl (Dulcolax) 10 mg Q12H PRN RECTAL Constipation 12/22/18 07:00 01/21/19 06:59 Cefazolin Sodium 2 gm/Dextrose 110 ml @ 220 mls/hr Q8H IV 12/22/18 16:00 12/23/18 00:29 Clonidine HCl (Catapres Tab) 0.1 mg Q4H PRN ORAL For SBP > 160 12/19/18 14:45 01/18/19 14:44 Dextrose (Dextrose 50%) STAT PRN IV Hypoglycemia 12/19/18 14:45 01/18/19 14:44 Dextrose (Dextrose 50%) STAT PRN IV Hypoglycemia 12/19/18 14:45 01/18/19 14:44 Dextrose/Sodium Chloride 1,000 ml @ 50 mls/hr Q20H IV 12/22/18 00:00 01/21/19 00:00 12/21/18 23:42 Docusate Sodium (Colace) 100 mg THREE TIMES A DAY ORAL 12/22/18 09:00 01/21/19 08:59 Epoetin Syd (Epoetin Syd(ESRD on dialysis)) 10,000 unit WED-WED-WED SUBQ 12/21/18 21:00 01/20/19 20:59 12/21/18 20:27 Escitalopram Oxalate (Lexapro) 10 mg DAILY ORAL 12/20/18 09:00 01/19/19 08:59 12/22/18 10:54 Heparin Sodium (Porcine) (Heparin 5000 units/ml) 5,000 units EVERY 12 HOURS SUBQ 12/19/18 21:00 01/18/19 20:59 Hydromorphone HCl (Dilaudid) 1 mg Q4H PRN SUBQ Mild Pain (Pain Scale 1-3) 12/22/18 07:00 12/29/18 06:59 Hydromorphone HCl (Dilaudid) 2 mg Q4H PRN SUBQ Moderate Pain (Pain Scale 4-6) 12/22/18 07:00 12/29/18 06:59 Insulin Aspart (NovoLOG) BEFORE MEALS AND HS SUBQ 12/19/18 21:00 01/18/19 20:59 12/22/18 12:12 Iopamidol (Isovue-300 100ml) 100 ml NOW PRN INJ Radiology Procedure 12/19/18 13:15 Levothyroxine Sodium (Synthroid) 50 mcg ACBREAKFAST ORAL 12/20/18 06:30 01/19/19 06:29 12/21/18 06:15 Magnesium Hydroxide (Mom) 30 ml DAILYPRN PRN ORAL Constipation 12/22/18 07:00 01/21/19 06:59 Midodrine (Pro-Amatine) 10 mg BID ORAL 12/19/18 18:00 01/18/19 17:59 12/22/18 10:54 Olanzapine (ZyPREXA) 5 mg BEDTIME ORAL 12/21/18 21:00 01/18/19 20:59 12/21/18 20:27 Ondansetron HCl (Zofran) 4 mg Q6H PRN IVP Nausea & Vomiting 12/19/18 14:45 01/18/19 14:44 Pantoprazole (Protonix) 40 mg DAILY ORAL 12/22/18 09:00 01/21/19 08:59 Polyethylene Glycol (Miralax) 17 gm HSPRN PRN ORAL Constipation 12/22/18 07:15 01/18/19 14:44 Risperidone (RisperDAL) 6 mg BEDTIME ORAL 12/19/18 21:00 01/18/19 20:59 12/21/18 20:27 Sevelamer Carbonate (Renvela) 800 mg THREE TIMES A DAY ORAL 12/19/18 18:00 01/18/19 17:59 12/22/18 12:06 Zolpidem Tartrate (Ambien) 5 mg HSPRN PRN ORAL Insomnia 12/19/18 14:45 12/26/18 14:44 12/21/18 20:37 Sarah Renee MD Dec 22, 2018 13:27
[2018-12-22] MEDS ORDERED: Eliquis 2.5mg tablet ORAL SCH (13:33)
[2018-12-22] MEDS ORDERED: ELIQUIS2.5 MG PO (13:34)
--- NOTE | 2018-12-22 16:15 | Operative Note - Dictated ---
DATE OF OPERATION: 12/22/2018 PREOPERATIVE DIAGNOSIS: Left hip comminuted intertrochanteric-subtrochanteric fracture with complete fracture through the greater trochanter. POSTOPERATIVE DIAGNOSIS: Left hip comminuted intertrochanteric-subtrochanteric fracture with complete fracture through the greater trochanter. PROCEDURE: Left hip open reduction and internal fixation using a long gamma nail, 125 degrees angle, 11 mm diameter, and 38 cm length. SURGEON: Ricardo Reyes M.D. HYDROTEL OPERATOR: Gwendolyn Hatch PA-C. ANESTHESIOLOGIST: Ilsa Bullard M.D. ANESTHESIA: General LMA anesthesia. ESTIMATED BLOOD LOSS: Less than 100 mL. COMPLICATIONS: None. BRIEF HISTORY: The patient is a pleasant 68-year-old female who sustained a mechanical fall and had a comminuted subtrochanteric intertrochanteric fracture. She was evaluated in the emergency room and she had significant multiple comorbidities including history of renal failure and dialysis as well as . She was optimized by Medicine and she was dialyzed and 2D echo was performed after she was cleared from medical standpoint, and after full discussion of risks and benefits of the surgery including infection, bleeding, neurovascular complication, possibility of malunion, possibility of nonunion, possible hardware failure, possible need for surgery down the line as well as other complications that may arise, she opted for surgical treatment. It was discussed with her that even with the open reduction and internal fixation, she may not be able to walk independently or even with a walker and she may be significantly limited. OPERATIVE PROCEDURE: The patient was brought to the operating room and was placed supine. All pressure points were well padded. Anesthesia was induced by anesthesiologist and the patient was placed on the traction table with the right leg in a well leg swanson and left leg in traction. All pressure points well padded. The left leg was placed in traction, internal rotated, and x-rays were obtained. The reduction was excellent in AP. On lateral, there was severe comminution and the greater trochanter was completely broken. However, the alignment was satisfactory. At this point, the left leg was prepped and draped in usual sterile fashion. Time-out was performed and preop antibiotics were given and a proximal incision was made approximately 2 cm proximal to the greater trochanter. The incision was taken through the subcutaneous tissue and through the gluteal fascia. The trochanter could be palpated. At this point, a guidewire and an under image intensifier was placed in the greater trochanter, traversing the fracture site into the distal diaphyseal region. This was checked and rechecked on AP and lateral and assured it was in good placement. Subsequently open reamer was used with a 15.5 mm reamer and a 13 mm distal reaming was performed over a long guidewire with a on it. Once this was completed, the measurements were made and 38 cm nail appeared to be the right size. At this point, a 38 cm x 11 mm long gamma nail was then passed over the guidewire all the way distally across the fracture site. The setscrew was started, but not tightened initially. Subsequently, once the nail was down, the position of the nail was checked on AP and lateral, appeared to be perfect. At this point, using the guide, a guidewire was placed through the lateral cortex into the neck into the head. On AP view, this was in central position. On the lateral view, this was slightly posterior. This appeared to be in an acceptable position. At this point, the measurements were made and 105 mm screw was chosen. The lateral cortex and the neck and the head were drilled using a step drill and subsequently 105 mm screw was placed in excellent position. The set screw was then tightened on top. At this point, care was given distally and using the guide, a distal static screw was placed in without any complications. The position of the screw was checked on AP and lateral, appeared to be perfect. At this point, all guides were removed. Final x-rays were obtained on AP and lateral proximally and distally, appeared to be perfect. The wounds were thoroughly irrigated using a copious amount of fluid. The gluteal fascia was closed using #1 Vicryl suture. Subcutaneous tissue was closed using 2-0 Vicryl suture. Skin was closed using 3-0 Monocryl suture. Steri-Strips were applied. The patient tolerated the procedure well without any complication, was taken to the recovery room in stable condition. All lap counts and instrument counts were correct. Ricardo Chengur, M.D. DR: JET JOB#: [id number] CC:
[2018-12-22] MEDS: ceFAZolin sod 2 GM in D5W 110 ML IV SCH ×2 (16:32→23:36)
--- NOTE | 2018-12-22 19:34 | NUR ---
HAND-OFF: Report given to Ryan ANDUJAR.
--- NOTE | 2018-12-22 19:47 | Cardiology Progress Note ---
Assessment/Plan Assessment/Plan 1. Non-syncopal fall. 2. Hip fracture. 3. History of tobacco use disorder. 4. Anemia. 5. Diabetes mellitus with end-organ damage. 6. End-stage renal disease, on hemodialysis. 7. History of bipolar disorder. 8. History of hypothyroidism s/p prbc tx bp on thelow side but per pt chronically low tolerted surgery bp was low post but improved askign for licona catheter Subjective Cardiovascular: Denies: chest pain, lightheadedness, palpitations Respiratory: Denies: shortness of breath Gastrointestinal/Abdominal: Denies: abdominal pain Genitourinary: Denies: burning Objective Last 24 Hour Vital Signs Date Time Temp Pulse Resp B/P (MAP) Pulse Ox O2 Delivery O2 Flow Rate FiO2 12/22/18 16:00 98.8 116 20 74/46 (55) 95 12/22/18 12:00 98.4 111 19 61/35 (44) 99 12/22/18 10:20 97.2 104 24 88/39 100 Nasal Cannula 3 12/22/18 10:10 88 24 88/39 100 Nasal Cannula 3 12/22/18 10:00 95 24 83/41 100 Nasal Cannula 3 12/22/18 09:50 95 24 73/43 100 Nasal Cannula 3 12/22/18 09:40 94 26 73/37 100 Nasal Cannula 3 12/22/18 09:35 96 22 69/41 100 Nasal Cannula 3 12/22/18 09:30 96 24 71/41 100 Nasal Cannula 3 12/22/18 09:25 97 16 69/43 100 Nasal Cannula 3 12/22/18 09:20 95 20 67/40 100 Nasal Cannula 3 12/22/18 09:15 97 12 69/43 100 Nasal Cannula 3 12/22/18 09:10 100 14 71/41 100 Nasal Cannula 3 12/22/18 09:05 100 12 69/44 100 Simple Mask 6 12/22/18 09:00 Room Air 12/22/18 09:00 100 12 69/42 100 Simple Mask 6 12/22/18 08:58 89 18 100 12/22/18 08:55 96 24 61/37 100 Simple Mask 6 12/22/18 08:50 98.7 91 24 59/35 100 Simple Mask 6 12/22/18 04:00 98.5 92 16 91/60 (70) 94 12/21/18 23:58 98.1 99 16 120/94 (103) 96 12/21/18 21:00 Room Air 12/21/18 20:00 99.1 73 14 92/57 (69) 94 General Appearance: no apparent distress, alert Neck: supple Cardiovascular: normal rate Respiratory/Chest: lungs clear Abdomen: non tender, soft, no mass Extremities: no swelling Intake and Output 12/21/18 12/22/18 19:00 07:00 Intake Total 820 ml 300 ml Output Total 800 ml 400 ml Balance 20 ml -100 ml Intake Oral 820 ml IV Total 300 ml Output Urine Total 800 ml 400 ml # Bowel Movements 1 Laboratory Tests Test 12/22/18 10:15 Sodium Level 139 MMOL/L (136-145) Potassium Level 4.3 MMOL/L (3.5-5.1) Chloride Level 98 MMOL/L (98-107) Carbon Dioxide Level 27 MMOL/L (21-32) Anion Gap 14 mmol/L (5-15) Blood Urea Nitrogen 53 mg/dL (7-18) H Creatinine 8.5 MG/DL (0.55-1.30) H Estimat Glomerular Filtration Rate 4.7 mL/min (>60) Glucose Level 158 MG/DL (74-106) H Calcium Level 7.0 MG/DL (8.5-10.1) L Total Bilirubin 0.5 MG/DL (0.2-1.0) Aspartate Amino Transf (AST/SGOT) 14 U/L (15-37) L Alanine Aminotransferase (ALT/SGPT) 11 U/L (12-78) L Alkaline Phosphatase 45 U/L (46-116) L Total Protein 6.0 G/DL (6.4-8.2) L Albumin 2.6 G/DL (3.4-5.0) L Globulin 3.4 g/dL Albumin/Globulin Ratio 0.8 (1.0-2.7) L Harvinder Cuba MD Dec 22, 2018 19:47
[2018-12-22] MEDS: D5 1/2NS 1,000 ML IV SCH (20:13)
[2018-12-22] MEDS: HYDROcodone/Acetamin 10/325 tab ORAL PRN (20:38)
[2018-12-22] MEDS: Eliquis 2.5mg tablet ORAL SCH (20:46)
--- NOTE | 2018-12-22 21:00 | NUR ---
NURSE NOTES: Patient insisting on insertion of licona catheter, Dr Renee OK to order. Will insert when patient is able to open hips further out for insertion. Patient ok to wait until she can tolerate pain.
[2018-12-23] VITALS: BP 110/63
[2018-12-23 04:00] VITALS: BP 87/73
[2018-12-23] MEDS: D5 1/2NS 1,000 ML IV SCH (05:54)
[2018-12-23 06:21] LABS: HEMATOCRIT 22.8 % (37.0-47.0); HEMOGLOBIN 7.3 G/DL (12.0-16.0); MEAN CORPUSCULAR VOLUME 96 FL (80-99); PLATELET COUNT 94 K/UL (150-450); RED BLOOD COUNT 2.37 M/UL (4.20-5.40); RED CELL DISTRIBUTION WIDTH 15.8 % (11.6-14.8); WHITE BLOOD COUNT 3.5 K/UL (4.8-10.8)
[2018-12-23] MEDS: NovoLOG Insulin Flexpen SUBQ SCH ×4 (06:30→20:40)
[2018-12-23 06:48] LABS: ANION GAP 14 mmol/L (5-15); BLOOD UREA NITROGEN 71 mg/dL (7-18); CARBON DIOXIDE 26 MMOL/L (21-32); CHLORIDE 98 MMOL/L (98-107); CREATININE 9.5 MG/DL (0.55-1.30); POTASSIUM 4.9 MMOL/L (3.5-5.1); SODIUM 138 MMOL/L (136-145)
--- NOTE | 2018-12-23 07:34 | NUR ---
HAND-OFF: Report given to PRATIMA Rucker.
--- NOTE | 2018-12-23 07:57 | NUR ---
NURSE NOTES: Patient received resting in bed. Denies SOB or pain at this time. S/P Left ORIF surgery 12/22. Dressing intact. Bed locked in lowest position, call light placed within reach. Will continue to monitor. Scheduled for hemodialysis today.
[2018-12-23 08:00] VITALS: BP 73/41
--- NOTE | 2018-12-23 08:10 | NUR ---
Social Work This SW spoke with brother, Joo @ [phone] who explains patient is from [facility] and questioning whether patient will need short term SNF vs return to this facility. P.T to evaluate.
--- NOTE | 2018-12-23 08:15 | Orthopedic Progress Note ---
Orthopedic - Progress Note Subjective Symptoms: improved Objective Laboratory Tests Test 12/22/18 10:15 12/23/18 05:20 Sodium Level 139 MMOL/L (136-145) 138 MMOL/L (136-145) Potassium Level 4.3 MMOL/L (3.5-5.1) 4.9 MMOL/L (3.5-5.1) Chloride Level 98 MMOL/L (98-107) 98 MMOL/L (98-107) Carbon Dioxide Level 27 MMOL/L (21-32) 26 MMOL/L (21-32) Anion Gap 14 mmol/L (5-15) 14 mmol/L (5-15) Blood Urea Nitrogen 53 mg/dL (7-18) H 71 mg/dL (7-18) H Creatinine 8.5 MG/DL (0.55-1.30) H 9.5 MG/DL (0.55-1.30) H Estimat Glomerular Filtration Rate 4.7 mL/min (>60) 4.1 mL/min (>60) Glucose Level 158 MG/DL (74-106) H 110 MG/DL (74-106) H Calcium Level 7.0 MG/DL (8.5-10.1) L 7.0 MG/DL (8.5-10.1) L Total Bilirubin 0.5 MG/DL (0.2-1.0) Aspartate Amino Transf (AST/SGOT) 14 U/L (15-37) L Alanine Aminotransferase (ALT/SGPT) 11 U/L (12-78) L Alkaline Phosphatase 45 U/L (46-116) L Total Protein 6.0 G/DL (6.4-8.2) L Albumin 2.6 G/DL (3.4-5.0) L Globulin 3.4 g/dL Albumin/Globulin Ratio 0.8 (1.0-2.7) L White Blood Count 3.5 K/UL (4.8-10.8) L Red Blood Count 2.37 M/UL (4.20-5.40) L Hemoglobin 7.3 G/DL (12.0-16.0) L Hematocrit 22.8 % (37.0-47.0) L Mean Corpuscular Volume 96 FL (80-99) Mean Corpuscular Hemoglobin 31.0 PG (27.0-31.0) Mean Corpuscular Hemoglobin Concent 32.2 G/DL (32.0-36.0) Red Cell Distribution Width 15.8 % (11.6-14.8) H Platelet Count 94 K/UL (150-450) L Mean Platelet Volume 5.6 FL (6.5-10.1) L Neutrophils (%) (Auto) % (45.0-75.0) Lymphocytes (%) (Auto) % (20.0-45.0) Monocytes (%) (Auto) % (1.0-10.0) Eosinophils (%) (Auto) % (0.0-3.0) Basophils (%) (Auto) % (0.0-2.0) Neutrophils % (Manual) Pending Lymphocytes % (Manual) Pending Platelet Estimate Pending Platelet Morphology Pending Last 24 Hour Vital Signs Date Time Temp Pulse Resp B/P (MAP) Pulse Ox O2 Delivery O2 Flow Rate FiO2 12/23/18 04:00 97.9 79 17 87/73 (78) 95 12/23/18 00:00 98.0 93 18 110/63 (79) 95 12/22/18 23:00 Room Air 12/22/18 21:08 98.8 12/22/18 20:00 98.2 106 18 89/54 (66) 95 12/22/18 16:00 98.8 116 20 74/46 (55) 95 12/22/18 12:00 98.4 111 19 61/35 (44) 99 12/22/18 10:20 97.2 104 24 88/39 100 Nasal Cannula 3 12/22/18 10:10 88 24 88/39 100 Nasal Cannula 3 12/22/18 10:00 95 24 83/41 100 Nasal Cannula 3 12/22/18 09:50 95 24 73/43 100 Nasal Cannula 3 12/22/18 09:40 94 26 73/37 100 Nasal Cannula 3 12/22/18 09:35 96 22 69/41 100 Nasal Cannula 3 12/22/18 09:30 96 24 71/41 100 Nasal Cannula 3 12/22/18 09:25 97 16 69/43 100 Nasal Cannula 3 12/22/18 09:20 95 20 67/40 100 Nasal Cannula 3 12/22/18 09:15 97 12 69/43 100 Nasal Cannula 3 12/22/18 09:10 100 14 71/41 100 Nasal Cannula 3 12/22/18 09:05 100 12 69/44 100 Simple Mask 6 12/22/18 09:00 Room Air 12/22/18 09:00 100 12 69/42 100 Simple Mask 6 12/22/18 08:58 89 18 100 12/22/18 08:55 96 24 61/37 100 Simple Mask 6 12/22/18 08:50 98.7 91 24 59/35 100 Simple Mask 6 Intake and Output 12/22/18 12/23/18 18:59 06:59 Intake Total 1030 ml 500 ml Output Total 300 ml Balance 730 ml 500 ml Intake Oral 480 ml 250 ml IV Total 450 ml 250 ml Other 100 ml Output Urine Total 0 ml Estimated Blood Loss 300 ml Laboratory Tests Test 12/22/18 10:15 12/23/18 05:20 Sodium Level 139 MMOL/L (136-145) 138 MMOL/L (136-145) Potassium Level 4.3 MMOL/L (3.5-5.1) 4.9 MMOL/L (3.5-5.1) Chloride Level 98 MMOL/L (98-107) 98 MMOL/L (98-107) Carbon Dioxide Level 27 MMOL/L (21-32) 26 MMOL/L (21-32) Anion Gap 14 mmol/L (5-15) 14 mmol/L (5-15) Blood Urea Nitrogen 53 mg/dL (7-18) H 71 mg/dL (7-18) H Creatinine 8.5 MG/DL (0.55-1.30) H 9.5 MG/DL (0.55-1.30) H Estimat Glomerular Filtration Rate 4.7 mL/min (>60) 4.1 mL/min (>60) Glucose Level 158 MG/DL (74-106) H 110 MG/DL (74-106) H Calcium Level 7.0 MG/DL (8.5-10.1) L 7.0 MG/DL (8.5-10.1) L Total Bilirubin 0.5 MG/DL (0.2-1.0) Aspartate Amino Transf (AST/SGOT) 14 U/L (15-37) L Alanine Aminotransferase (ALT/SGPT) 11 U/L (12-78) L Alkaline Phosphatase 45 U/L (46-116) L Total Protein 6.0 G/DL (6.4-8.2) L Albumin 2.6 G/DL (3.4-5.0) L Globulin 3.4 g/dL Albumin/Globulin Ratio 0.8 (1.0-2.7) L White Blood Count 3.5 K/UL (4.8-10.8) L Red Blood Count 2.37 M/UL (4.20-5.40) L Hemoglobin 7.3 G/DL (12.0-16.0) L Hematocrit 22.8 % (37.0-47.0) L Mean Corpuscular Volume 96 FL (80-99) Mean Corpuscular Hemoglobin 31.0 PG (27.0-31.0) Mean Corpuscular Hemoglobin Concent 32.2 G/DL (32.0-36.0) Red Cell Distribution Width 15.8 % (11.6-14.8) H Platelet Count 94 K/UL (150-450) L Mean Platelet Volume 5.6 FL (6.5-10.1) L Neutrophils (%) (Auto) % (45.0-75.0) Lymphocytes (%) (Auto) % (20.0-45.0) Monocytes (%) (Auto) % (1.0-10.0) Eosinophils (%) (Auto) % (0.0-3.0) Basophils (%) (Auto) % (0.0-2.0) Neutrophils % (Manual) Pending Lymphocytes % (Manual) Pending Platelet Estimate Pending Platelet Morphology Pending Wound: clean, dry, intact Drains: none Neuro Status: normal Vascular Status: normal Additional Comments xray excellent reduction and stabilization of fx with long gamma nail Assessment Post-op Diagnosis POD 1 Procedure Performed left hip ORIF Plan Plan: PT - WBAT, discharge plan - ok per ortho once cleared per primary team. f /u Dr. abernathy 2 weeks Gwendolyn Hatch Dec 23, 2018 08:15
--- NOTE | 2018-12-23 08:24 | Pulmonology Progress Note ---
Assessment/Plan Assessment/Plan ASSESSMENT Status post non-syncopal fall Left hip comminuted fracture Status post left hip open reduction internal fixation ESRD, on HD Anemia Diabetes mellitus and organ damage Hypertension Hypothyroidism History of tobacco use disorder Cough Bipolar disorder PLAN OF CARE MS floor fall precaution, continue PT Rx postop hip precautions pain management mobilize as tolerated IS while in the bed -encouraged q 1 hr while in the bed x10 prior CXR negative CXR today O2 HHN prn a/tussive prn HD provided as per exercise instruct recommendation with close monitoring of renal parameters ,volumes and electrolytes ECHO with pEF 55-60% O2 HHN started on anticoagulation with Eliquis/ renally dosed CT of the head revealed no acute intracranial pathology patient undergone transfusion of 2 units of PRBC started on EPO monitor hemoglobin and hematocrit with goal to keep hemoglobin above 7 anemia workup, stool OB BS management with SSI prn TSH in normal limits; levothyroxine continued counseled to continue abstinence from smoking ( quit 2 yrs ago) supportive care bowel regimen case discussed and evaluated by supervising physician Subjective Allergies: Coded Allergies: CODEINE (Verified Allergy, Unknown, 10/07/15) ERYTHROMYCIN BASE (Verified Allergy, Unknown, 10/07/15) Subjective coughing, stated going for a month, no hemoptysis former smoker Hgb down from 9.6 to 7.3 worked with PT Objective Last 24 Hour Vital Signs Date Time Temp Pulse Resp B/P (MAP) Pulse Ox O2 Delivery O2 Flow Rate FiO2 12/23/18 04:00 97.9 79 17 87/73 (78) 95 12/23/18 00:00 98.0 93 18 110/63 (79) 95 12/22/18 23:00 Room Air 12/22/18 21:08 98.8 12/22/18 20:00 98.2 106 18 89/54 (66) 95 12/22/18 16:00 98.8 116 20 74/46 (55) 95 12/22/18 12:00 98.4 111 19 61/35 (44) 99 12/22/18 10:20 97.2 104 24 88/39 100 Nasal Cannula 3 12/22/18 10:10 88 24 88/39 100 Nasal Cannula 3 12/22/18 10:00 95 24 83/41 100 Nasal Cannula 3 12/22/18 09:50 95 24 73/43 100 Nasal Cannula 3 12/22/18 09:40 94 26 73/37 100 Nasal Cannula 3 12/22/18 09:35 96 22 69/41 100 Nasal Cannula 3 12/22/18 09:30 96 24 71/41 100 Nasal Cannula 3 12/22/18 09:25 97 16 69/43 100 Nasal Cannula 3 12/22/18 09:20 95 20 67/40 100 Nasal Cannula 3 12/22/18 09:15 97 12 69/43 100 Nasal Cannula 3 12/22/18 09:10 100 14 71/41 100 Nasal Cannula 3 12/22/18 09:05 100 12 69/44 100 Simple Mask 6 12/22/18 09:00 Room Air 12/22/18 09:00 100 12 69/42 100 Simple Mask 6 12/22/18 08:58 89 18 100 12/22/18 08:55 96 24 61/37 100 Simple Mask 6 12/22/18 08:50 98.7 91 24 59/35 100 Simple Mask 6 Intake and Output 12/22/18 12/23/18 18:59 06:59 Intake Total 1030 ml 500 ml Output Total 300 ml Balance 730 ml 500 ml Intake Oral 480 ml 250 ml IV Total 450 ml 250 ml Other 100 ml Output Urine Total 0 ml Estimated Blood Loss 300 ml General Appearance: no acute distress, cachetic, other - A/A/O female in NAD, pale looking HEENT: normocephalic, atraumatic, anicteric, mucous membranes moist, PERRL Respiratory/Chest: chest wall non-tender, no respiratory distress, no accessory muscle use, rhonchi - few scattered rhonchi, no wheezing Cardiovascular: normal rate, no JVD Abdomen: normal bowel sounds, soft, non tender, non distended Extremities: no edema, pedal pulses normal, other - AV shsunt + brruit/thrill Skin: other - L hip and lower leg with dresing C/D/I Neurologic/Psychiatric: alert, oriented x 3 Laboratory Tests 12/22/18 10:15: Sodium Level 139, Potassium Level 4.3, Chloride Level 98, Carbon Dioxide Level 27, Anion Gap 14, Blood Urea Nitrogen 53H, Creatinine 8.5H, Estimat Glomerular Filtration Rate 4.7, Glucose Level 158H, Calcium Level 7.0L, Total Bilirubin 0.5 , Aspartate Amino Transf (AST/SGOT) 14L, Alanine Aminotransferase (ALT/SGPT) 11L , Alkaline Phosphatase 45L, Total Protein 6.0L, Albumin 2.6L, Globulin 3.4, Albumin/Globulin Ratio 0.8L 12/23/18 05:20: Sodium Level 138, Potassium Level 4.9, Chloride Level 98, Carbon Dioxide Level 26, Anion Gap 14, Blood Urea Nitrogen 71H, Creatinine 9.5H, Estimat Glomerular Filtration Rate 4.1, Glucose Level 110H, Calcium Level 7.0L, White Blood Count 3.5L, Red Blood Count 2.37L, Hemoglobin 7.3L, Hematocrit 22.8L, Mean Corpuscular Volume 96, Mean Corpuscular Hemoglobin 31.0, Mean Corpuscular Hemoglobin Concent 32.2, Red Cell Distribution Width 15.8H, Platelet Count 94L, Mean Platelet Volume 5.6L, Neutrophils (%) (Auto) , Lymphocytes (%) (Auto) , Monocytes (%) (Auto) , Eosinophils (%) (Auto) , Basophils (%) (Auto) , Neutrophils % (Manual) [Pending], Lymphocytes % (Manual) [Pending], Platelet Estimate [Pending], Platelet Morphology [Pending] Current Medications Medications (Trade) Dose Ordered Sig/Basil Route PRN Reason Start Time Stop Time Status Last Admin Dose Admin Acetaminophen (Tylenol) 650 mg Q4H PRN ORAL Mild Pain (Pain Scale 1-3) 12/22/18 07:00 01/21/19 06:59 Acetaminophen/ Hydrocodone Bitart ([place] 10/325) 1 tab Q6H PRN ORAL For Pain 12/21/18 08:45 12/28/18 08:44 12/22/18 20:38 Albuterol/ Ipratropium (Albuterol/ Ipratropium) 3 ml Q6H PRN HHN dyspnea 12/19/18 14:45 12/24/18 14:44 Alprazolam (Xanax) 0.25 mg BIDPRN PRN ORAL PRN Agitation/Anxiety 12/19/18 14:45 12/26/18 14:44 Apixaban (Eliquis) 2.5 mg Q12HR ORAL 12/22/18 21:00 01/21/19 20:59 Bisacodyl (Dulcolax) 10 mg Q12H PRN RECTAL Constipation 12/22/18 07:00 01/21/19 06:59 Clonidine HCl (Catapres Tab) 0.1 mg Q4H PRN ORAL For SBP > 160 12/19/18 14:45 01/18/19 14:44 Dextrose (Dextrose 50%) STAT PRN IV Hypoglycemia 12/19/18 14:45 01/18/19 14:44 Dextrose (Dextrose 50%) STAT PRN IV Hypoglycemia 12/19/18 14:45 01/18/19 14:44 Dextrose/Sodium Chloride 1,000 ml @ 50 mls/hr Q20H IV 12/22/18 00:00 01/21/19 00:00 12/23/18 05:54 Docusate Sodium (Colace) 100 mg THREE TIMES A DAY ORAL 12/22/18 09:00 01/21/19 08:59 12/22/18 17:09 Epoetin Syd (Epoetin Syd(ESRD on dialysis)) 10,000 unit WED- SUBQ 12/21/18 21:00 01/20/19 20:59 12/21/18 20:27 Escitalopram Oxalate (Lexapro) 10 mg DAILY ORAL 12/20/18 09:00 01/19/19 08:59 12/22/18 10:54 Hydromorphone HCl (Dilaudid) 1 mg Q4H PRN SUBQ Mild Pain (Pain Scale 1-3) 12/22/18 07:00 12/29/18 06:59 Hydromorphone HCl (Dilaudid) 2 mg Q4H PRN SUBQ Moderate Pain (Pain Scale 4-6) 12/22/18 07:00 12/29/18 06:59 Insulin Aspart (NovoLOG) BEFORE MEALS AND HS SUBQ 12/19/18 21:00 01/18/19 20:59 12/22/18 20:41 Iopamidol (Isovue-300 100ml) 100 ml NOW PRN INJ Radiology Procedure 12/19/18 13:15 Levothyroxine Sodium (Synthroid) 50 mcg ACBREAKFAST ORAL 12/20/18 06:30 01/19/19 06:29 12/23/18 05:52 Magnesium Hydroxide (Mom) 30 ml DAILYPRN PRN ORAL Constipation 12/22/18 07:00 01/21/19 06:59 Midodrine (Pro-Amatine) 10 mg BID ORAL 12/19/18 18:00 01/18/19 17:59 12/22/18 17:09 Olanzapine (ZyPREXA) 5 mg BEDTIME ORAL 12/21/18 21:00 01/18/19 20:59 12/22/18 20:39 Ondansetron HCl (Zofran) 4 mg Q6H PRN IVP Nausea & Vomiting 12/19/18 14:45 01/18/19 14:44 Pantoprazole (Protonix) 40 mg DAILY ORAL 12/22/18 09:00 01/21/19 08:59 Polyethylene Glycol (Miralax) 17 gm HSPRN PRN ORAL Constipation 12/22/18 07:15 01/18/19 14:44 Risperidone (RisperDAL) 6 mg BEDTIME ORAL 12/19/18 21:00 01/18/19 20:59 12/22/18 20:38 Sevelamer Carbonate (Renvela) 800 mg THREE TIMES A DAY ORAL 12/19/18 18:00 01/18/19 17:59 12/22/18 17:09 Zolpidem Tartrate (Ambien) 5 mg HSPRN PRN ORAL Insomnia 12/19/18 14:45 12/26/18 14:44 12/21/18 20:37 Susi Richter NP Dec 23, 2018 08:24
[2018-12-23] MEDS: Eliquis 2.5mg tablet ORAL SCH ×2 (08:25→21:00)
[2018-12-23] MEDS: Midodrine 10mg tab ORAL SCH ×2 (08:25→16:46)
[2018-12-23] MEDS: Renvela 800mg Pkt ORAL SCH ×3 (08:25→16:46)
[2018-12-23] MEDS: Docusate 100mg cap ORAL SCH ×3 (08:30→16:46)
--- NOTE | 2018-12-23 09:25 | 48 Hour Post Anesthesia Eval ---
Post Anesthesia Evaluation Procedure: Left hip ORIF Date of Evaluation: Dec 23, 2018 Time of Evaluation: 09:24 Blood Pressure Systolic: 92 0: 54 Pulse Rate: 72 Respiratory Rate: 20 Temperature (Fahrenheit): 97.6 O2 Sat by Pulse Oximetry: 98 Airway: patent Nausea: No Vomiting: No Pain Intensity: 2 Hydration Status: adequate Cardiopulmonary Status: stable Mental Status/LOC: patient returned to baseline Follow-up Care/Observations: n/a Post-Anesthesia Complications: none Follow-up care needed: N/A Alexander Kinsey MD Dec 23, 2018 09:25
[2018-12-23] MEDS ORDERED: Albuterol/Ipratropium 3ml neb HHN PRN (10:51)
[2018-12-23] MEDS ORDERED: Guaifenesin/DM 10ml syrup ORAL PRN (10:51)
--- NOTE | 2018-12-23 10:56 | Nephrology Progress Note ---
Assessment/Plan Assessment 1. End-stage renal disease. 2. Anemia of chronic kidney disease. 3. Renal osteodystrophy. 4. Status post fall. 5. Possible left hip pain versus fracture. Plan dialysis as schedule today place foly cath pain management monitoring phos,pth continue epogen pain management Subjective Subjective alert and awake c/o increase abd dis tension Objective Objective Last 24 Hour Vital Signs Date Time Temp Pulse Resp B/P (MAP) Pulse Ox O2 Delivery O2 Flow Rate FiO2 12/23/18 09:25 72 20 98 12/23/18 09:00 Room Air 12/23/18 08:00 98.0 100 21 73/41 (52) 95 12/23/18 04:00 97.9 79 17 87/73 (78) 95 12/23/18 00:00 98.0 93 18 110/63 (79) 95 12/22/18 23:00 Room Air 12/22/18 21:08 98.8 12/22/18 20:00 98.2 106 18 89/54 (66) 95 12/22/18 16:00 98.8 116 20 74/46 (55) 95 12/22/18 12:00 98.4 111 19 61/35 (44) 99 Intake and Output 12/22/18 12/23/18 18:59 06:59 Intake Total 1030 ml 500 ml Output Total 300 ml Balance 730 ml 500 ml Intake Oral 480 ml 250 ml IV Total 450 ml 250 ml Other 100 ml Output Urine Total 0 ml Estimated Blood Loss 300 ml Laboratory Tests 12/23/18 05:20: White Blood Count 3.5L, Red Blood Count 2.37L, Hemoglobin 7.3L, Hematocrit 22.8L , Mean Corpuscular Volume 96, Mean Corpuscular Hemoglobin 31.0, Mean Corpuscular Hemoglobin Concent 32.2, Red Cell Distribution Width 15.8H, Platelet Count 94L, Mean Platelet Volume 5.6L, Neutrophils (%) (Auto) , Lymphocytes (%) (Auto) , Monocytes (%) (Auto) , Eosinophils (%) (Auto) , Basophils (%) (Auto) , Differential Total Cells Counted 100, Neutrophils % ( Manual) 69, Lymphocytes % (Manual) 24, Monocytes % (Manual) 4, Eosinophils % ( Manual) 3, Basophils % (Manual) 0, Band Neutrophils 0, Platelet Estimate DecreasedL, Platelet Morphology Normal, Anisocytosis 1+, Macrocytosis 1+, Sodium Level 138, Potassium Level 4.9, Chloride Level 98, Carbon Dioxide Level 26, Anion Gap 14, Blood Urea Nitrogen 71H, Creatinine 9.5H, Estimat Glomerular Filtration Rate 4.1, Glucose Level 110H, Calcium Level 7.0L, Iron Level [Pending ], Unsaturated Iron Binding [Pending], Ferritin [Pending], Vitamin B12 Level [ Pending], Folate [Pending] Height (Feet): 5 Height (Inches): 7.00 Weight (Pounds): 132 Objective HEAD AND NECK: No JVP. No LAD. No thyromegaly. Extraocular movements intact. Pupils are reactive to light and accommodation. LUNGS: Clear to auscultation. CARDIAC: Regular rate and rhythm. S1, S2. No murmur. No rub. ABDOMEN: Soft. Bowel sounds positive. EXTREMITIES: No edema. No clubbing. No cyanosis. Gwen Mccray MD Dec 23, 2018 10:56
[2018-12-23 11:32] LABS: FERRITIN > 2000 NG/ML (8-388)
[2018-12-23 11:36] LABS: % IRON SATURATION 20 % (15-50); IRON 19 ug/dL (50-175); TOTAL IRON BINDING CAPACITY 95 ug/dL (250-450)
--- NOTE | 2018-12-23 11:36 | Diagnostic Imaging Report ---
INDICATION: Pain, intraoperative TECHNIQUE: Intraoperative imaging Fluoroscopy time: 82.8 seconds Total dose: 0.43646 mGym2 Total number of images: 6 COMPARISON: A 04/28/2019 FINDINGS: Intraoperative imaging documents repair of previously demonstrated left hip intertrochanteric fracture using medullary joey and compression screw. IMPRESSION: Intraoperative imaging, as described
[2018-12-23 12:00] VITALS: BP 86/45
--- NOTE | 2018-12-23 12:00 | NUR ---
NURSE NOTES: Patient refused insulin, stating 122 BS is "low" for her and therefore doesn't require insulin. RN explained to her the risks of not taking insulin, patient stated she is aware. No signs of hyperglycemia observed. Will continue to monitor.
--- NOTE | 2018-12-23 14:53 | NUR ---
P.T NOTE: LATE ENTRY 1030 P.T EVALUATION COMPLETED AND TREATMENT INITIATED. PLEASE REFER TO P.T EVALUATION FOR CURRENT FUNCTIONAL STATUS. PATIENT IS ALERT O TO SELF, PLACE AND SITUATION. PATIENT IS LIMITED BY PAIN ON THE L HIP AGGRAVATED MOVEMENT INITIATION WELL FEAR OF MOBILITY. PATIENT CURRENTLY REQUIRE EXTENDED TIME, MAX A X 1-2 AND CONSTANT CUES FOR ENCOURAGEMENT AND REASSURANCE TO INITIATE AND COMPLETE SUPINE TO/FROM FROM SITTING AND SITTING TO/FROM STANDING. PATIENT ABLE TO SIT UNSUPPORTED, ABLE TO STAND WITH USING THE FWW WITH MOD A X 1 HOWEVER NOT ABLE TO INITIATE STEPS DUE TO WEAKNESS, PAIN AND FEAR. SKILLED P.T SERVICE IS WARRANTED TO IMPROVE STRENGTH , BALANCE AND ENDURANCE TO INCREASE MOBILITY INDEPENDENCE AND SAFETY. RECOMMEND SNF FOR FURTHER REHAB AT [place].
[2018-12-23 16:00] VITALS: BP 81/51
--- NOTE | 2018-12-23 17:55 | Diagnostic Imaging Report ---
Indication: Shortness of breath Technique: One view of the chest Comparison: A 04/28/2019 Findings: There is an unusual triangular opacity at the right medial lung base. There is a 1 cm nodular opacity at the left lateral lung base. This is demonstrated to be a subpleural nodule on a recent CT scan of 12/19/2018. The remainder of the lungs and pleural spaces are clear. The heart size is normal Impression: Right basilar triangular opacity, likely representing partial atelectasis of the right lower lobe. Left lateral basilar nodule, in retrospect evident on prior CT scan of 12/19/2018 and representing a 1 cm subpleural nodule.
--- NOTE | 2018-12-23 19:03 | NUR ---
HAND-OFF: Report given to Ryan ANDUJAR.
--- NOTE | 2018-12-23 19:19 | Cardiology Progress Note ---
Assessment/Plan Assessment/Plan 1. Non-syncopal fall. 2. Hip fracture. 3. History of tobacco use disorder. 4. Anemia. 5. Diabetes mellitus with end-organ damage. 6. End-stage renal disease, on hemodialysis. 7. History of bipolar disorder. 8. History of hypothyroidism s/p prbc tx bp on the low side but per pt chronically low tolerted surgery gettign dialysis seems to be tolerating Subjective Cardiovascular: Denies: chest pain Respiratory: Denies: shortness of breath Gastrointestinal/Abdominal: Denies: abdominal pain Genitourinary: Denies: burning Objective Last 24 Hour Vital Signs Date Time Temp Pulse Resp B/P (MAP) Pulse Ox O2 Delivery O2 Flow Rate FiO2 12/23/18 16:00 98.7 103 19 81/51 (61) 95 12/23/18 15:47 Room Air 12/23/18 12:00 98.3 84 19 86/45 (59) 96 12/23/18 09:25 72 20 98 12/23/18 09:00 Room Air 12/23/18 08:00 98.0 100 21 73/41 (52) 95 12/23/18 04:00 97.9 79 17 87/73 (78) 95 12/23/18 00:00 98.0 93 18 110/63 (79) 95 12/22/18 23:00 Room Air 12/22/18 21:08 98.8 12/22/18 20:00 98.2 106 18 89/54 (66) 95 General Appearance: no apparent distress, alert, other - getting dialysis Neck: supple Respiratory/Chest: lungs clear Abdomen: normal bowel sounds, non tender, soft Extremities: no swelling Intake and Output 12/22/18 12/23/18 19:00 07:00 Intake Total 1030 ml 500 ml Output Total 300 ml Balance 730 ml 500 ml Intake Oral 480 ml 250 ml IV Total 450 ml 250 ml Other 100 ml Output Urine Total 0 ml Estimated Blood Loss 300 ml Laboratory Tests Test 12/23/18 05:20 White Blood Count 3.5 K/UL (4.8-10.8) L Red Blood Count 2.37 M/UL (4.20-5.40) L Hemoglobin 7.3 G/DL (12.0-16.0) L Hematocrit 22.8 % (37.0-47.0) L Mean Corpuscular Volume 96 FL (80-99) Mean Corpuscular Hemoglobin 31.0 PG (27.0-31.0) Mean Corpuscular Hemoglobin Concent 32.2 G/DL (32.0-36.0) Red Cell Distribution Width 15.8 % (11.6-14.8) H Platelet Count 94 K/UL (150-450) L Mean Platelet Volume 5.6 FL (6.5-10.1) L Neutrophils (%) (Auto) % (45.0-75.0) Lymphocytes (%) (Auto) % (20.0-45.0) Monocytes (%) (Auto) % (1.0-10.0) Eosinophils (%) (Auto) % (0.0-3.0) Basophils (%) (Auto) % (0.0-2.0) Differential Total Cells Counted 100 Neutrophils % (Manual) 69 % (45-75) Lymphocytes % (Manual) 24 % (20-45) Monocytes % (Manual) 4 % (1-10) Eosinophils % (Manual) 3 % (0-3) Basophils % (Manual) 0 % (0-2) Band Neutrophils 0 % (0-8) Platelet Estimate Decreased L Platelet Morphology Normal Anisocytosis 1+ Macrocytosis 1+ Sodium Level 138 MMOL/L (136-145) Potassium Level 4.9 MMOL/L (3.5-5.1) Chloride Level 98 MMOL/L (98-107) Carbon Dioxide Level 26 MMOL/L (21-32) Anion Gap 14 mmol/L (5-15) Blood Urea Nitrogen 71 mg/dL (7-18) H Creatinine 9.5 MG/DL (0.55-1.30) H Estimat Glomerular Filtration Rate 4.1 mL/min (>60) Glucose Level 110 MG/DL (74-106) H Calcium Level 7.0 MG/DL (8.5-10.1) L Iron Level 19 ug/dL (50-175) L Total Iron Binding Capacity 95 ug/dL (250-450) L Percent Iron Saturation 20 % (15-50) Unsaturated Iron Binding 76 ug/dL (112-346) L Ferritin > 2000 NG/ML (8-388) H Vitamin B12 Level 1838 PG/ML (193-986) H Folate 20.9 NG/ML (8.6-58.9) Harvinder Cuba MD Dec 23, 2018 19:19
--- NOTE | 2018-12-23 19:27 | NUR ---
NURSE NOTES: Patient currently receiving hemodialysis. Flores catheter noted. No s/s of acute distress, no c/o pain at this time. IV access asymptomatic, dressing dry and intact. Fall and safety precautions taken. Surgical dressing dry and intact. PT evaluation done today.
--- NOTE | 2018-12-23 19:34 | NUR ---
CASE MANAGEMENT: REVIEW SI: S/P FALL . ESRD ON HD . ACUTE HEAD INJURY . LEFT HIP FRACTURE LEFT HIP ORIF 12/22 T 98.7 HR 103 RR 19 BP 73/41 SAT 95% ROOM AIR WBC 3.5 H/H 7.3/22.8 BUN 71 CR 9.5 MEHDI 7.0 IS: D5 1/2 NS IVF@50ML/HR COLACE PO BID MIDODRINE PO BID EPOETIN SUBQ MWF HEPARIN SUBQ Q12HR PT EVAL HD PRN MED/SURG STATUS DCP: PATIENT IS FROM [facility]
[2018-12-23 20:00] VITALS: BP 82/50
[2018-12-23] MEDS: Epoetin Alfa-EPBX(ESRD on dialysis)10,000 unit/ml vial SUBQ SCH (20:41)
--- NOTE | 2018-12-23 21:07 | NUR ---
NURSE NOTES: Patient refusing to turn for sacral pressure injury to be assessed and taken a picture of. Will try again later.
--- NOTE | 2018-12-23 23:00 | Diagnostic Imaging Report ---
APPROVED REPORT CPT Code: 62375 Present Symptoms Comments: Pain RIGHT LEG: Venous imaging reveals acute thrombus in the common femoral and greater saphenous veins junction. Remainder of the deep venous system within normal limits. No evidence of thrombus in the superficial femoral, popliteal and calf veins. LEFT LEG: Venous imaging reveals a patent deep venous system. There is no evidence of thrombus within the femoral, or tibial segments. The greater saphenous vein is also within normal limits. Doppler indicates normal spontaneous flow within these segments. The popliteal vein was not well imaged (due to contracture of left knee). Dr. Renee was notified of abnormal results at 1300.
[2018-12-24] VITALS: BP 85/62
[2018-12-24] MEDS: HYDROcodone/Acetamin 10/325 tab ORAL PRN ×4 (00:14→21:26)
--- NOTE | 2018-12-24 02:09 | NUR ---
NURSE NOTES: Patient still refusing to have sacral pressure injury assessed. Patient stated she is "not able to turn" because of her surgery. Patient was educated on the importance of a head to toe assessment and verbalized understanding.
[2018-12-24 04:00] VITALS: BP 92/64
[2018-12-24] MEDS: NovoLOG Insulin Flexpen SUBQ SCH ×4 (06:30→21:31)
--- NOTE | 2018-12-24 06:30 | NUR ---
NURSE NOTES: Patient sacral area finally assessed, found to be bleeding bright red blood, cleaned with NS, dressed with 4x4 and optifoam. Took picture, will order wound care consult.
[2018-12-24 07:26] LABS: HEMATOCRIT 20.8 % (37.0-47.0); MEAN CORPUSCULAR VOLUME 96 FL (80-99); PLATELET COUNT 119 K/UL (150-450); RED BLOOD COUNT 2.16 M/UL (4.20-5.40); RED CELL DISTRIBUTION WIDTH 16.1 % (11.6-14.8); WHITE BLOOD COUNT 3.3 K/UL (4.8-10.8)
--- NOTE | 2018-12-24 07:30 | NUR ---
NURSE NOTES: Received pt in bed. AO x 4. On room air. IV on R UA 22g, intact and patent, running D5 1/2 NS at 50 ml/hr. Pt is reporting pain her ankle/toe 10/10. Will give Newman 10 ask pt requested to manage her pain. Side rails x2. Bed in the lowest, locked, and alarm on. Will continue to monitor
[2018-12-24 07:33] LABS: ANION GAP 10 mmol/L (5-15); BLOOD UREA NITROGEN 47 mg/dL (7-18); CARBON DIOXIDE 28 MMOL/L (21-32); CHLORIDE 102 MMOL/L (98-107); CREATININE 6.7 MG/DL (0.55-1.30); POTASSIUM 4.7 MMOL/L (3.5-5.1); SODIUM 140 MMOL/L (136-145)
[2018-12-24 07:38] LABS: HEMOGLOBIN 6.7 G/DL (12.0-16.0)
[2018-12-24 08:00] VITALS: BP 95/64
[2018-12-24] MEDS: Docusate 100mg cap ORAL SCH ×3 (08:53→17:32)
[2018-12-24] MEDS: Eliquis 2.5mg tablet ORAL SCH ×2 (08:54→21:24)
[2018-12-24] MEDS: Renvela 800mg Pkt ORAL SCH ×3 (08:54→17:32)
[2018-12-24] MEDS: Midodrine 10mg tab ORAL SCH ×2 (08:54→17:27)
--- NOTE | 2018-12-24 10:22 | Pulmonology Progress Note ---
Assessment/Plan Assessment/Plan ASSESSMENT Status post non-syncopal fall Left hip comminuted fracture Status post left hip open reduction internal fixation Acute DVT RLE Atelectasis R lung Pulmonary nodule L lung ESRD, on HD Anemia of chronic disease Diabetes mellitus and organ damage Hypertension Hypothyroidism History of tobacco use disorder Cough Bipolar disorder PLAN OF CARE MS floor on a/coagulation with Eliquis /renally dosed - for acute DVt fall precaution, continue PT Rx postop hip precautions pain management mobilize as tolerated prior CXR negative CXR 12/23 with R sided atelectasis IS while in the bed -encouraged q 1 hr while in the bed x10 O2 HHN prn a/tussive prn CXR also with L pulm nodule, evident on prior CT chest considering hx of smoking, recommend to follow up with CT chest in 6 month HD provided as per insulation blanket maker recommendation with close monitoring of renal parameters ,volumes and electrolytes ECHO with pEF 55-60% O2 HHN CT of the head revealed no acute intracranial pathology patient undergone transfusion of 2 units of PRBC started on EPO monitor hemoglobin and hematocrit with goal to keep hemoglobin above 7 anemia workup c/w anemia of chronic disease, high ferritin check stool OB , CEA pending transfuse 1 u PRBC for Hgb 6.7 BS management with SSI prn TSH in normal limits; Levothyroxine continued counseled to continue abstinence from smoking ( quit 2 yrs ago) supportive care bowel regimen case discussed and evaluated by supervising physician Subjective Allergies: Coded Allergies: CODEINE (Verified Allergy, Unknown, 10/07/15) ERYTHROMYCIN BASE (Verified Allergy, Unknown, 10/07/15) Subjective intermittent coughing, no hemoptysis , no SOB former smoker Hgb down to 6.7 worked with PT Objective Last 24 Hour Vital Signs Date Time Temp Pulse Resp B/P (MAP) Pulse Ox O2 Delivery O2 Flow Rate FiO2 12/24/18 10:07 68 20 95 Room Air 21 12/24/18 09:00 Room Air 12/24/18 08:00 98.9 112 18 95/64 (74) 93 12/24/18 04:00 98.3 99 22 92/64 (73) 96 12/24/18 00:44 98.5 12/24/18 00:00 99.0 103 20 85/62 (70) 96 12/23/18 22:16 Room Air 12/23/18 20:00 98.5 96 19 82/50 (61) 97 12/23/18 16:00 98.7 103 19 81/51 (61) 95 12/23/18 15:47 Room Air 12/23/18 12:00 98.3 84 19 86/45 (59) 96 Intake and Output 12/23/18 12/24/18 19:00 07:00 Intake Total 800 ml Output Total 1000 ml Balance 800 ml -1000 ml Other 800 ml Hemodialysis UF 1000 ml Objective General Appearance: no acute distress, cachetic, A/A/O female in NAD , pale looking HEENT: normocephalic, atraumatic, anicteric, mucous membranes moist, PERRL Respiratory/Chest: chest wall non-tender, no respiratory distress, no accessory muscle use, few scattered rhonchi, no wheezing Cardiovascular: normal rate, no JVD Abdomen: normal bowel sounds, soft, non tender, non distended Extremities: no edema, pedal pulses normal, AV shunt + bruit/thrill Skin: other - L hip and lower leg with dressing C/D/I Neurologic/Psychiatric: alert, oriented x 3 Laboratory Tests 12/24/18 06:40: White Blood Count 3.3L, Red Blood Count 2.16L, Hemoglobin 6.7*L, Hematocrit 20.8L, Mean Corpuscular Volume 96, Mean Corpuscular Hemoglobin 31.2H, Mean Corpuscular Hemoglobin Concent 32.5, Red Cell Distribution Width 16.1H, Platelet Count 119L, Mean Platelet Volume 5.1L, Neutrophils (%) (Auto) , Lymphocytes (%) (Auto) , Monocytes (%) (Auto) , Eosinophils (%) (Auto) , Basophils (%) (Auto) , Differential Total Cells Counted 100, Neutrophils % ( Manual) 74, Lymphocytes % (Manual) 13L, Monocytes % (Manual) 11H, Eosinophils % (Manual) 2, Basophils % (Manual) 0, Band Neutrophils 0, Platelet Estimate DecreasedL, Platelet Morphology Normal, Hypochromasia 1+, Anisocytosis 1+, Sodium Level 140, Potassium Level 4.7, Chloride Level 102, Carbon Dioxide Level 28, Anion Gap 10, Blood Urea Nitrogen 47H, Creatinine 6.7H, Estimat Glomerular Filtration Rate 6.2, Glucose Level 106, Calcium Level 8.0L, Carcinoembryonic Antigen [Pending] Current Medications Medications (Trade) Dose Ordered Sig/Basil Route PRN Reason Start Time Stop Time Status Last Admin Dose Admin Acetaminophen (Tylenol) 650 mg Q4H PRN ORAL Mild Pain (Pain Scale 1-3) 12/22/18 07:00 01/21/19 06:59 Acetaminophen/ Hydrocodone Bitart ([place] 10/325) 1 tab Q6H PRN ORAL For Pain 12/21/18 08:45 12/28/18 08:44 12/24/18 07:42 Albuterol/ Ipratropium (Albuterol/ Ipratropium) 3 ml Q6H PRN HHN dyspnea 12/23/18 10:51 12/28/18 10:50 Alprazolam (Xanax) 0.25 mg BIDPRN PRN ORAL PRN Agitation/Anxiety 12/19/18 14:45 12/26/18 14:44 Apixaban (Eliquis) 2.5 mg Q12HR ORAL 12/22/18 21:00 01/21/19 20:59 12/23/18 08:25 Bisacodyl (Dulcolax) 10 mg Q12H PRN RECTAL Constipation 12/22/18 07:00 01/21/19 06:59 Clonidine HCl (Catapres Tab) 0.1 mg Q4H PRN ORAL For SBP > 160 12/19/18 14:45 01/18/19 14:44 Dextrose (Dextrose 50%) STAT PRN IV Hypoglycemia 12/19/18 14:45 01/18/19 14:44 Dextrose (Dextrose 50%) STAT PRN IV Hypoglycemia 12/19/18 14:45 01/18/19 14:44 Dextrose/Sodium Chloride 1,000 ml @ 50 mls/hr Q20H IV 12/22/18 00:00 01/21/19 00:00 12/23/18 05:54 Docusate Sodium (Colace) 100 mg THREE TIMES A DAY ORAL 12/22/18 09:00 01/21/19 08:59 12/24/18 08:53 Epoetin Syd (Epoetin Syd(ESRD on dialysis)) 10,000 unit WED-WED-WED SUBQ 12/21/18 21:00 01/20/19 20:59 12/23/18 20:41 Escitalopram Oxalate (Lexapro) 10 mg DAILY ORAL 12/20/18 09:00 01/19/19 08:59 12/24/18 08:54 Guaifenesin/ Dextromethorphan (Robitussin DM Syrup) 10 ml Q4H PRN ORAL For Cough 12/23/18 10:51 01/22/19 10:50 Hydromorphone HCl (Dilaudid) 1 mg Q4H PRN SUBQ Mild Pain (Pain Scale 1-3) 12/22/18 07:00 12/29/18 06:59 Hydromorphone HCl (Dilaudid) 2 mg Q4H PRN SUBQ Moderate Pain (Pain Scale 4-6) 12/22/18 07:00 12/29/18 06:59 Insulin Aspart (NovoLOG) BEFORE MEALS AND HS SUBQ 12/19/18 21:00 01/18/19 20:59 12/23/18 20:40 Iopamidol (Isovue-300 100ml) 100 ml NOW PRN INJ Radiology Procedure 12/19/18 13:15 Levothyroxine Sodium (Synthroid) 50 mcg ACBREAKFAST ORAL 12/20/18 06:30 01/19/19 06:29 12/24/18 06:19 Magnesium Hydroxide (Mom) 30 ml DAILYPRN PRN ORAL Constipation 12/22/18 07:00 01/21/19 06:59 Midodrine (Pro-Amatine) 10 mg BID ORAL 12/19/18 18:00 01/18/19 17:59 12/24/18 08:54 Olanzapine (ZyPREXA) 5 mg BEDTIME ORAL 12/21/18 21:00 01/18/19 20:59 12/22/18 20:39 Ondansetron HCl (Zofran) 4 mg Q6H PRN IVP Nausea & Vomiting 12/19/18 14:45 01/18/19 14:44 Pantoprazole (Protonix) 40 mg DAILY ORAL 12/22/18 09:00 01/21/19 08:59 12/24/18 08:54 Polyethylene Glycol (Miralax) 17 gm HSPRN PRN ORAL Constipation 12/22/18 07:15 01/18/19 14:44 Risperidone (RisperDAL) 6 mg BEDTIME ORAL 12/19/18 21:00 01/18/19 20:59 12/23/18 20:41 Sevelamer Carbonate (Renvela) 800 mg THREE TIMES A DAY ORAL 12/19/18 18:00 01/18/19 17:59 12/24/18 08:54 Zolpidem Tartrate (Ambien) 5 mg HSPRN PRN ORAL Insomnia 12/19/18 14:45 12/26/18 14:44 12/21/18 20:37 Susi Richter NP Dec 24, 2018 10:22
[2018-12-24] MEDS: D5 1/2NS 1,000 ML IV SCH ×2 (11:45→19:22)
[2018-12-24 12:00] VITALS: BP 90/52
--- NOTE | 2018-12-24 14:44 | NUR ---
NURSE NOTES: Pt's ggb was at 6.7 g/dL. Notified Dr. Renee and pt is getting transfusion of 1 unit of blood
--- NOTE | 2018-12-24 15:55 | Nephrology Progress Note ---
Assessment/Plan Assessment 1. End-stage renal disease. 2. Anemia of chronic kidney disease. 3. Renal osteodystrophy. 4. Status post fall. 5. Possible left hip pain versus fracture. Plan dialysis as schedule pain management monitoring phos,pth continue epogen pain management Subjective Subjective alert and awake had dialysis yesterday Objective Objective Last 24 Hour Vital Signs Date Time Temp Pulse Resp B/P (MAP) Pulse Ox O2 Delivery O2 Flow Rate FiO2 12/24/18 12:00 97.7 94 20 90/52 (65) 95 12/24/18 10:07 68 20 95 Room Air 21 12/24/18 09:00 Room Air 12/24/18 08:00 98.9 112 18 95/64 (74) 93 12/24/18 04:00 98.3 99 22 92/64 (73) 96 12/24/18 00:44 98.5 12/24/18 00:00 99.0 103 20 85/62 (70) 96 12/23/18 22:16 Room Air 12/23/18 20:00 98.5 96 19 82/50 (61) 97 12/23/18 16:00 98.7 103 19 81/51 (61) 95 Intake and Output 12/23/18 12/24/18 19:00 07:00 Intake Total 800 ml Output Total 1000 ml Balance 800 ml -1000 ml Other 800 ml Hemodialysis UF 1000 ml Laboratory Tests 12/24/18 06:40: White Blood Count 3.3L, Red Blood Count 2.16L, Hemoglobin 6.7*L, Hematocrit 20.8L, Mean Corpuscular Volume 96, Mean Corpuscular Hemoglobin 31.2H, Mean Corpuscular Hemoglobin Concent 32.5, Red Cell Distribution Width 16.1H, Platelet Count 119L, Mean Platelet Volume 5.1L, Neutrophils (%) (Auto) , Lymphocytes (%) (Auto) , Monocytes (%) (Auto) , Eosinophils (%) (Auto) , Basophils (%) (Auto) , Differential Total Cells Counted 100, Neutrophils % ( Manual) 74, Lymphocytes % (Manual) 13L, Monocytes % (Manual) 11H, Eosinophils % (Manual) 2, Basophils % (Manual) 0, Band Neutrophils 0, Platelet Estimate DecreasedL, Platelet Morphology Normal, Hypochromasia 1+, Anisocytosis 1+, Sodium Level 140, Potassium Level 4.7, Chloride Level 102, Carbon Dioxide Level 28, Anion Gap 10, Blood Urea Nitrogen 47H, Creatinine 6.7H, Estimat Glomerular Filtration Rate 6.2, Glucose Level 106, Calcium Level 8.0L, Carcinoembryonic Antigen [Pending] Height (Feet): 5 Height (Inches): 7.00 Weight (Pounds): 135 Objective HEAD AND NECK: No JVP. No LAD. No thyromegaly. Extraocular movements intact. Pupils are reactive to light and accommodation. LUNGS: Clear to auscultation. CARDIAC: Regular rate and rhythm. S1, S2. No murmur. No rub. ABDOMEN: Soft. Bowel sounds positive. EXTREMITIES: No edema. No clubbing. No cyanosis. Gwen Mccray MD Dec 24, 2018 15:55
[2018-12-24 16:00] VITALS: BP 85/58
--- NOTE | 2018-12-24 19:26 | NUR ---
HAND-OFF: Report given to PRATIMA Elena.
[2018-12-24 19:58] VITALS: BP 91/50
--- NOTE | 2018-12-24 20:00 | NUR ---
NURSE NOTES: Patient refused to turn for skin assessment. Patient also wearing diaper, refused to have it removed for RN to assess left hip sx site. Patient stated "Don't touch it. Don't change it" Explained risks and benefits, patient continued to refuse. WIll continue to monitor.
[2018-12-25] VITALS: BP 105/54
[2018-12-25 04:00] VITALS: BP 100/64
[2018-12-25] MEDS: HYDROcodone/Acetamin 10/325 tab ORAL PRN ×4 (04:54→22:54)
--- NOTE | 2018-12-25 05:19 | NUR ---
NURSE NOTES: Patient again was offered to change her left hip dressing but continued to refuse. Explained importance of keeping surgical dressing clean and intact. Current dressing is dry and intact but it's been more than 2 days since surgery and is due for dressing change. Patient still refuse despite RN giving her pain medication prior to attempting dressing change.
[2018-12-25] MEDS: NovoLOG Insulin Flexpen SUBQ SCH ×4 (06:19→21:00)
[2018-12-25 06:30] LABS: BASOPHILS % (AUTO) 2.1 % (0.0-2.0); EOSINOPHILS % (AUTO) 2.4 % (0.0-3.0); HEMATOCRIT 24.7 % (37.0-47.0); LYMPHOCYTES % (AUTO) 12.2 % (20.0-45.0); MEAN CORPUSCULAR VOLUME 97 FL (80-99); MONOCYTES % (AUTO) 9.3 % (1.0-10.0); PLATELET COUNT 144 K/UL (150-450); RED BLOOD COUNT 2.55 M/UL (4.20-5.40); RED CELL DISTRIBUTION WIDTH 14.7 % (11.6-14.8); WHITE BLOOD COUNT 4.2 K/UL (4.8-10.8)
[2018-12-25 06:43] LABS: ANION GAP 12 mmol/L (5-15); BLOOD UREA NITROGEN 62 mg/dL (7-18); CALCIUM 8.2 MG/DL (8.5-10.1); CARBON DIOXIDE 26 MMOL/L (21-32); CHLORIDE 100 MMOL/L (98-107); CREATININE 7.8 MG/DL (0.55-1.30); POTASSIUM 5.2 MMOL/L (3.5-5.1); SODIUM 137 MMOL/L (136-145)
--- NOTE | 2018-12-25 07:06 | NUR ---
HAND-OFF: Report given to Uri ANDUJAR.
--- NOTE | 2018-12-25 07:12 | NUR ---
NURSE NOTES: Received pt in bed. AAO x 4. No c/o of pain/distress. IV 22g L hand intact and patent, running D5 1/2NS @ 50 cc/hr. Side rail x2. Bed in the lowest, locked, and alarm on. will continue to monitor
[2018-12-25 08:00] VITALS: BP 90/47
[2018-12-25] MEDS: Eliquis 2.5mg tablet ORAL SCH ×2 (08:27→21:00)
[2018-12-25] MEDS: Renvela 800mg Pkt ORAL SCH ×3 (08:27→17:15)
[2018-12-25] MEDS: Midodrine 10mg tab ORAL SCH ×2 (08:29→17:14)
[2018-12-25] MEDS: Docusate 100mg cap ORAL SCH ×3 (09:00→17:33)
[2018-12-25] MEDS ORDERED: ALPRAZolam 0.25mg tab ORAL PRN (11:30)
--- NOTE | 2018-12-25 11:30 | Pulmonology Progress Note ---
Assessment/Plan Assessment/Plan ASSESSMENT Status post non-syncopal fall Left hip comminuted fracture Status post left hip open reduction internal fixation Acute DVT RLE Atelectasis R lung Pulmonary nodule L lung ESRD, on HD Anemia of chronic disease Diabetes mellitus and organ damage Hypertension Hypothyroidism History of tobacco use disorder Cough Bipolar disorder PLAN OF CARE MS floor on a/coagulation with Eliquis /renally dosed - for acute DVt fall precaution, continue PT Rx postop hip precautions pain management mobilize as tolerated prior CXR negative CXR 12/23 with R sided atelectasis IS while in the bed -encouraged q 1 hr while in the bed x10 O2 HHN prn a/tussive prn CXR also with L pulm nodule, evident on prior CT chest considering hx of smoking, recommend to follow up with CT chest in 6 month HD provided as per plate drying machine tender recommendation with close monitoring of renal parameters ,volumes and electrolytes ECHO with pEF 55-60% O2 HHN CT of the head revealed no acute intracranial pathology patient undergone transfusion of 2 units of PRBC started on EPO monitor hemoglobin and hematocrit with goal to keep hemoglobin above 7 anemia workup c/w anemia of chronic disease, high ferritin check stool OB , CEA pending s/p 1 u PRBC 12/24, Hgb up to 8.0 continue with EPO BS management with SSI prn TSH in normal limits; Levothyroxine continued counseled to continue abstinence from smoking ( quit 2 yrs ago) supportive care bowel regimen case discussed and evaluated by supervising physician Subjective Allergies: Coded Allergies: CODEINE (Verified Allergy, Unknown, 10/07/15) ERYTHROMYCIN BASE (Verified Allergy, Unknown, 10/07/15) Subjective s/p 1 u PRBC on 12/24, Hgb up to 8.0 intermittent coughing, no hemoptysis , no SOB former smoker Objective Last 24 Hour Vital Signs Date Time Temp Pulse Resp B/P (MAP) Pulse Ox O2 Delivery O2 Flow Rate FiO2 12/25/18 09:00 Room Air 12/25/18 08:59 106 20 96 Room Air 21 12/25/18 08:00 98.2 107 20 90/47 (61) 93 12/25/18 05:24 99.4 12/25/18 04:00 99.4 105 20 100/64 (76) 96 12/25/18 00:00 98.9 102 20 105/54 (71) 96 12/24/18 21:00 Room Air 12/24/18 19:58 98.6 96 20 91/50 (64) 96 12/24/18 19:54 88 20 95 Room Air 21 12/24/18 16:00 97.9 95 16 85/58 (67) 96 12/24/18 12:00 97.7 94 20 90/52 (65) 95 Intake and Output 12/24/18 12/25/18 19:00 07:00 Intake Total 1150 ml 550 ml Output Total 0 ml 0 ml Balance 1150 ml 550 ml Intake Oral 600 ml IV Total 550 ml 550 ml Output Urine Total 0 ml 0 ml Stool Total 0 ml Objective General Appearance: no acute distress, cachetic, A/A/O female in NAD , pale looking HEENT: normocephalic, atraumatic, anicteric, mucous membranes moist, PERRL Respiratory/Chest: chest wall non-tender, no respiratory distress, no accessory muscle use, few scattered rhonchi, no wheezing Cardiovascular: normal rate, no JVD Abdomen: normal bowel sounds, soft, non tender, non distended Extremities: no edema, pedal pulses normal, LUE AV shunt + bruit/thrill Skin: L hip and lower leg with dressing C/D/I Neurologic/Psychiatric: alert, oriented x 3 Laboratory Tests 12/25/18 04:45: White Blood Count 4.2L, Red Blood Count 2.55L, Hemoglobin 8.0L, Hematocrit 24.7L , Mean Corpuscular Volume 97, Mean Corpuscular Hemoglobin 31.4H, Mean Corpuscular Hemoglobin Concent 32.4, Red Cell Distribution Width 14.7, Platelet Count 144L, Mean Platelet Volume 5.1L, Neutrophils (%) (Auto) 74.0, Lymphocytes (%) (Auto) 12.2L, Monocytes (%) (Auto) 9.3, Eosinophils (%) (Auto) 2.4, Basophils (%) (Auto) 2.1H, Sodium Level 137, Potassium Level 5.2H, Chloride Level 100, Carbon Dioxide Level 26, Anion Gap 12, Blood Urea Nitrogen 62H, Creatinine 7.8H, Estimat Glomerular Filtration Rate 5.2, Glucose Level 85, Calcium Level 8.2L Current Medications Medications (Trade) Dose Ordered Sig/Basil Route PRN Reason Start Time Stop Time Status Last Admin Dose Admin Acetaminophen (Tylenol) 650 mg Q4H PRN ORAL Mild Pain (Pain Scale 1-3) 12/22/18 07:00 01/21/19 06:59 Acetaminophen/ Hydrocodone Bitart ([place] 10/325) 1 tab Q6H PRN ORAL For Pain 12/21/18 08:45 12/28/18 08:44 12/25/18 08:28 Albuterol/ Ipratropium (Albuterol/ Ipratropium) 3 ml Q6H PRN HHN dyspnea 12/23/18 10:51 12/28/18 10:50 Alprazolam (Xanax) 0.25 mg BIDPRN PRN ORAL PRN Agitation/Anxiety 12/19/18 14:45 12/26/18 14:44 Apixaban (Eliquis) 2.5 mg Q12HR ORAL 12/22/18 21:00 01/21/19 20:59 12/25/18 08:27 Bisacodyl (Dulcolax) 10 mg Q12H PRN RECTAL Constipation 12/22/18 07:00 01/21/19 06:59 Clonidine HCl (Catapres Tab) 0.1 mg Q4H PRN ORAL For SBP > 160 12/19/18 14:45 01/18/19 14:44 Dextrose (Dextrose 50%) STAT PRN IV Hypoglycemia 12/19/18 14:45 01/18/19 14:44 Dextrose (Dextrose 50%) STAT PRN IV Hypoglycemia 12/19/18 14:45 01/18/19 14:44 Dextrose/Sodium Chloride 1,000 ml @ 50 mls/hr Q20H IV 12/22/18 00:00 01/21/19 00:00 12/24/18 19:22 Docusate Sodium (Colace) 100 mg THREE TIMES A DAY ORAL 12/22/18 09:00 01/21/19 08:59 12/24/18 08:53 Epoetin Syd (Epoetin Syd(ESRD on dialysis)) 10,000 unit WED-WED-WED SUBQ 12/21/18 21:00 01/20/19 20:59 12/23/18 20:41 Escitalopram Oxalate (Lexapro) 10 mg DAILY ORAL 12/20/18 09:00 01/19/19 08:59 12/25/18 08:29 Guaifenesin/ Dextromethorphan (Robitussin DM Syrup) 10 ml Q4H PRN ORAL For Cough 12/23/18 10:51 01/22/19 10:50 Hydromorphone HCl (Dilaudid) 1 mg Q4H PRN SUBQ Mild Pain (Pain Scale 1-3) 12/22/18 07:00 12/29/18 06:59 Hydromorphone HCl (Dilaudid) 2 mg Q4H PRN SUBQ Moderate Pain (Pain Scale 4-6) 12/22/18 07:00 12/29/18 06:59 Insulin Aspart (NovoLOG) BEFORE MEALS AND HS SUBQ 12/19/18 21:00 01/18/19 20:59 12/24/18 21:31 Iopamidol (Isovue-300 100ml) 100 ml NOW PRN INJ Radiology Procedure 12/19/18 13:15 Levothyroxine Sodium (Synthroid) 50 mcg ACBREAKFAST ORAL 12/20/18 06:30 01/19/19 06:29 12/25/18 06:16 Magnesium Hydroxide (Mom) 30 ml DAILYPRN PRN ORAL Constipation 12/22/18 07:00 01/21/19 06:59 Midodrine (Pro-Amatine) 10 mg BID ORAL 12/19/18 18:00 01/18/19 17:59 12/25/18 08:29 Olanzapine (ZyPREXA) 5 mg BEDTIME ORAL 12/21/18 21:00 01/18/19 20:59 12/22/18 20:39 Ondansetron HCl (Zofran) 4 mg Q6H PRN IVP Nausea & Vomiting 12/19/18 14:45 01/18/19 14:44 Pantoprazole (Protonix) 40 mg DAILY ORAL 12/22/18 09:00 01/21/19 08:59 12/25/18 08:29 Polyethylene Glycol (Miralax) 17 gm HSPRN PRN ORAL Constipation 12/22/18 07:15 01/18/19 14:44 Risperidone (RisperDAL) 6 mg BEDTIME ORAL 12/19/18 21:00 01/18/19 20:59 12/24/18 21:24 Sevelamer Carbonate (Renvela) 800 mg THREE TIMES A DAY ORAL 12/19/18 18:00 01/18/19 17:59 12/25/18 08:27 Zolpidem Tartrate (Ambien) 5 mg HSPRN PRN ORAL Insomnia 12/19/18 14:45 12/26/18 14:44 12/21/18 20:37 Susi Richter NP Dec 25, 2018 11:30
[2018-12-25 12:00] VITALS: BP 94/56
[2018-12-25] MEDS: D5 1/2NS 1,000 ML IV SCH (15:03)
--- NOTE | 2018-12-25 15:08 | Cardiology Progress Note ---
Assessment/Plan Problem List: (1) Hip fracture (2) Hypotension (3) Severe anemia (4) Diabetes (5) DVT (deep venous thrombosis) (6) ESRD (end stage renal disease) on dialysis Status: stable, progressing Status Narrative Pt s/p L hip ORIF. Has acute R femoral DVT - placed on low dose Eliquis She was transfused yesterday for hg 6.7 w/ increase to 8 today. No active bleeding noted. She has ESRD, on chronic HD. Assessment/Plan Continue current meds. On Galva prn for post op pain Follow h/h closely, on eliquis HD per Dr. Mccray Subjective ROS Limited/Unobtainable: No Subjective Cardiology for Dr. [place]. Ms. Ibanez is sedated. Has L hip pain. No c/o dyspnea or chest pain Objective Last 24 Hour Vital Signs Date Time Temp Pulse Resp B/P (MAP) Pulse Ox O2 Delivery O2 Flow Rate FiO2 12/25/18 12:00 98.6 101 18 94/56 (69) 92 12/25/18 09:00 Room Air 12/25/18 08:59 106 20 96 Room Air 21 12/25/18 08:00 98.2 107 20 90/47 (61) 93 12/25/18 05:24 99.4 12/25/18 04:00 99.4 105 20 100/64 (76) 96 12/25/18 00:00 98.9 102 20 105/54 (71) 96 12/24/18 21:00 Room Air 12/24/18 19:58 98.6 96 20 91/50 (64) 96 12/24/18 19:54 88 20 95 Room Air 21 12/24/18 16:00 97.9 95 16 85/58 (67) 96 General Appearance: WD/WN, no apparent distress EENT: PERRL/EOMI Neck: no JVD Rhythm: NSR Cardiovascular: normal rate, regular rhythm, no gallop/murmur Respiratory/Chest: lungs clear - clear anteriorly Abdomen: normal bowel sounds, non tender, soft Extremities: other - L hip dressing dry, intact. No peripheral edema L UE AV fistula - + bruit Intake and Output 12/24/18 12/25/18 19:00 07:00 Intake Total 1150 ml 550 ml Output Total 0 ml 0 ml Balance 1150 ml 550 ml Intake Oral 600 ml IV Total 550 ml 550 ml Output Urine Total 0 ml 0 ml Stool Total 0 ml Laboratory Tests Test 12/25/18 04:45 White Blood Count 4.2 K/UL (4.8-10.8) L Red Blood Count 2.55 M/UL (4.20-5.40) L Hemoglobin 8.0 G/DL (12.0-16.0) L Hematocrit 24.7 % (37.0-47.0) L Mean Corpuscular Volume 97 FL (80-99) Mean Corpuscular Hemoglobin 31.4 PG (27.0-31.0) H Mean Corpuscular Hemoglobin Concent 32.4 G/DL (32.0-36.0) Red Cell Distribution Width 14.7 % (11.6-14.8) Platelet Count 144 K/UL (150-450) L Mean Platelet Volume 5.1 FL (6.5-10.1) L Neutrophils (%) (Auto) 74.0 % (45.0-75.0) Lymphocytes (%) (Auto) 12.2 % (20.0-45.0) L Monocytes (%) (Auto) 9.3 % (1.0-10.0) Eosinophils (%) (Auto) 2.4 % (0.0-3.0) Basophils (%) (Auto) 2.1 % (0.0-2.0) H Sodium Level 137 MMOL/L (136-145) Potassium Level 5.2 MMOL/L (3.5-5.1) H Chloride Level 100 MMOL/L (98-107) Carbon Dioxide Level 26 MMOL/L (21-32) Anion Gap 12 mmol/L (5-15) Blood Urea Nitrogen 62 mg/dL (7-18) H Creatinine 7.8 MG/DL (0.55-1.30) H Estimat Glomerular Filtration Rate 5.2 mL/min (>60) Glucose Level 85 MG/DL (74-106) Calcium Level 8.2 MG/DL (8.5-10.1) Jennifer Garrett MD Dec 25, 2018 15:08
[2018-12-25 16:00] VITALS: BP 92/53
--- NOTE | 2018-12-25 16:13 | Nephrology Progress Note ---
Assessment/Plan Assessment 1. End-stage renal disease. 2. Anemia of chronic kidney disease. 3. Renal osteodystrophy. 4. Status post fall. 5. Possible left hip pain versus fracture. Plan dialysis as schedule pain management monitoring phos,pth continue epogen pain management Subjective Subjective alert and awake c/o hip pain Objective Objective Last 24 Hour Vital Signs Date Time Temp Pulse Resp B/P (MAP) Pulse Ox O2 Delivery O2 Flow Rate FiO2 12/25/18 12:00 98.6 101 18 94/56 (69) 92 12/25/18 09:00 Room Air 12/25/18 08:59 106 20 96 Room Air 21 12/25/18 08:00 98.2 107 20 90/47 (61) 93 12/25/18 05:24 99.4 12/25/18 04:00 99.4 105 20 100/64 (76) 96 12/25/18 00:00 98.9 102 20 105/54 (71) 96 12/24/18 21:00 Room Air 12/24/18 19:58 98.6 96 20 91/50 (64) 96 12/24/18 19:54 88 20 95 Room Air 21 Intake and Output 12/24/18 12/25/18 19:00 07:00 Intake Total 1150 ml 550 ml Output Total 0 ml 0 ml Balance 1150 ml 550 ml Intake Oral 600 ml IV Total 550 ml 550 ml Output Urine Total 0 ml 0 ml Stool Total 0 ml Laboratory Tests 12/25/18 04:45: White Blood Count 4.2L, Red Blood Count 2.55L, Hemoglobin 8.0L, Hematocrit 24.7L , Mean Corpuscular Volume 97, Mean Corpuscular Hemoglobin 31.4H, Mean Corpuscular Hemoglobin Concent 32.4, Red Cell Distribution Width 14.7, Platelet Count 144L, Mean Platelet Volume 5.1L, Neutrophils (%) (Auto) 74.0, Lymphocytes (%) (Auto) 12.2L, Monocytes (%) (Auto) 9.3, Eosinophils (%) (Auto) 2.4, Basophils (%) (Auto) 2.1H, Sodium Level 137, Potassium Level 5.2H, Chloride Level 100, Carbon Dioxide Level 26, Anion Gap 12, Blood Urea Nitrogen 62H, Creatinine 7.8H, Estimat Glomerular Filtration Rate 5.2, Glucose Level 85, Calcium Level 8.2L Height (Feet): 5 Height (Inches): 7.00 Weight (Pounds): 142 Objective HEAD AND NECK: No JVP. No LAD. No thyromegaly. Extraocular movements intact. Pupils are reactive to light and accommodation. LUNGS: Clear to auscultation. CARDIAC: Regular rate and rhythm. S1, S2. No murmur. No rub. ABDOMEN: Soft. Bowel sounds positive. EXTREMITIES: No edema. No clubbing. No cyanosis. Gwen Mccray MD Dec 25, 2018 16:13
--- NOTE | 2018-12-25 19:00 | NUR ---
HAND-OFF: Report given to PRATIMA Breaux.
[2018-12-25 20:00] VITALS: BP 88/52
--- NOTE | 2018-12-25 20:00 | NUR ---
NURSE NOTES: Received patient awake in bed, able to verbalize needs, no s/s of acute distress, does not want sacral wound to be assessed. VSS. IV access asymptomatic running IVF at 50ml/hr. Fall and safety precautions taken.
[2018-12-26] VITALS: BP 93/53
[2018-12-26 04:00] VITALS: BP 97/55
[2018-12-26] MEDS: NovoLOG Insulin Flexpen SUBQ SCH ×4 (06:16→21:00)
[2018-12-26 06:45] LABS: HEMATOCRIT 23.5 % (37.0-47.0); HEMOGLOBIN 7.7 G/DL (12.0-16.0); MEAN CORPUSCULAR VOLUME 96 FL (80-99); PLATELET COUNT 177 K/UL (150-450); RED BLOOD COUNT 2.46 M/UL (4.20-5.40); RED CELL DISTRIBUTION WIDTH 14.7 % (11.6-14.8); WHITE BLOOD COUNT 4.7 K/UL (4.8-10.8)
[2018-12-26 06:57] LABS: ANION GAP 12 mmol/L (5-15); BLOOD UREA NITROGEN 74 mg/dL (7-18); CALCIUM 8.3 MG/DL (8.5-10.1); CARBON DIOXIDE 24 MMOL/L (21-32); CHLORIDE 99 MMOL/L (98-107); CREATININE 8.8 MG/DL (0.55-1.30); POTASSIUM 5.7 MMOL/L (3.5-5.1); SODIUM 135 MMOL/L (136-145)
--- NOTE | 2018-12-26 07:28 | NUR ---
HAND-OFF: Report given to PRATIMA Nails.
--- NOTE | 2018-12-26 07:33 | NUR ---
NURSE NOTES: received report from PRATIMA Breaux. patient in bed. sleeping. no respiratory distress noted on room air. IV on RFA 22g running d51/2ns @50. HD today with VIP. SERGEI fistula. intact. F/C intact. encourage IS post ORIF on lt hip. bed in the lowest position. call light within reach. alarm on . will continue to provide plan of care.
[2018-12-26 08:00] VITALS: BP 93/56
[2018-12-26] MEDS: Midodrine 10mg tab ORAL SCH ×2 (08:22→18:24)
[2018-12-26] MEDS: Docusate 100mg cap ORAL SCH ×4 (08:22→18:00)
[2018-12-26] MEDS: Eliquis 2.5mg tablet ORAL SCH ×2 (08:22→21:05)
[2018-12-26] MEDS: HYDROcodone/Acetamin 10/325 tab ORAL PRN ×2 (08:22→21:04)
[2018-12-26] MEDS: Renvela 800mg Pkt ORAL SCH ×3 (08:23→18:23)
--- NOTE | 2018-12-26 08:26 | Nephrology Progress Note ---
Assessment/Plan Assessment 1. End-stage renal disease. 2. Anemia of chronic kidney disease. 3. Renal osteodystrophy. 4. Status post fall. 5. Possible left hip pain versus fracture. Plan dialysis as schedule pain management monitoring phos,pth continue epogen pain management Subjective Constitutional: Reports: no symptoms HEENT: Reports: no symptoms Genitourinary: Reports: no symptoms Neurologic/Psychiatric: Reports: no symptoms Subjective alert and awake denies any problem Objective Objective Last 24 Hour Vital Signs Date Time Temp Pulse Resp B/P (MAP) Pulse Ox O2 Delivery O2 Flow Rate FiO2 12/26/18 08:00 98.8 105 19 93/56 (68) 97 12/26/18 04:00 98.9 103 19 97/55 (69) 97 12/26/18 00:00 98.7 101 18 93/53 (66) 17 12/25/18 23:24 98.3 12/25/18 23:00 Room Air 12/25/18 21:55 97 20 94 Room Air 21 12/25/18 20:00 98.3 97 18 88/52 (64) 95 12/25/18 16:00 98.5 100 19 92/53 (66) 93 12/25/18 12:00 98.6 101 18 94/56 (69) 92 12/25/18 09:00 Room Air 12/25/18 08:59 106 20 96 Room Air 21 Intake and Output 12/25/18 12/26/18 19:00 07:00 Intake Total 900 ml 550 ml Output Total 0 ml Balance 900 ml 550 ml Intake Oral 500 ml 350 ml IV Total 400 ml 200 ml Output Urine Total 0 ml Laboratory Tests 12/26/18 05:10: White Blood Count 4.7L, Red Blood Count 2.46L, Hemoglobin 7.7L, Hematocrit 23.5L , Mean Corpuscular Volume 96, Mean Corpuscular Hemoglobin 31.4H, Mean Corpuscular Hemoglobin Concent 32.8, Red Cell Distribution Width 14.7, Platelet Count 177, Mean Platelet Volume 4.3L, Neutrophils (%) (Auto) , Lymphocytes (%) ( Auto) , Monocytes (%) (Auto) , Eosinophils (%) (Auto) , Basophils (%) (Auto) , Neutrophils % (Manual) [Pending], Lymphocytes % (Manual) [Pending], Platelet Estimate [Pending], Platelet Morphology [Pending], Sodium Level 135L, Potassium Level 5.7H, Chloride Level 99, Carbon Dioxide Level 24, Anion Gap 12, Blood Urea Nitrogen 74H, Creatinine 8.8H, Estimat Glomerular Filtration Rate 4.5, Glucose Level 95, Calcium Level 8.3L Height (Feet): 5 Height (Inches): 7.00 Weight (Pounds): 140 Objective HEAD AND NECK: No JVP. No LAD. No thyromegaly. Extraocular movements intact. Pupils are reactive to light and accommodation. LUNGS: Clear to auscultation. CARDIAC: Regular rate and rhythm. S1, S2. No murmur. No rub. ABDOMEN: Soft. Bowel sounds positive. EXTREMITIES: No edema. No clubbing. No cyanosis. Gwen Mccray MD Dec 26, 2018 08:26
--- NOTE | 2018-12-26 11:44 | NUR ---
NURSE NOTES: blood sugar 125@1130. patient refused to cover insulin. patient said she doesn't want to get insulin if bs below 200. RN explained risks and benefits.
[2018-12-26 12:00] VITALS: BP 91/55
--- NOTE | 2018-12-26 12:11 | Pulmonology Progress Note ---
Assessment/Plan Problems: (1) Hip fracture (2) ESRD (end stage renal disease) on dialysis (3) HTN (hypertension) (4) Hypothyroidism (5) Severe anemia (6) Diabetes Assessment/Plan no new complains difficult to do pt/ot HD by nephrology monitor BP sliding scale diabetic diet dc planning Subjective ROS Limited/Unobtainable: No Constitutional: Reports: no symptoms HEENT: Repors: no symptoms Allergies: Coded Allergies: CODEINE (Verified Allergy, Unknown, 10/07/15) ERYTHROMYCIN BASE (Verified Allergy, Unknown, 10/07/15) Objective Last 24 Hour Vital Signs Date Time Temp Pulse Resp B/P (MAP) Pulse Ox O2 Delivery O2 Flow Rate FiO2 12/26/18 09:00 Room Air 12/26/18 08:00 98.8 105 19 93/56 (68) 97 12/26/18 07:25 98 20 96 Room Air 21 12/26/18 04:00 98.9 103 19 97/55 (69) 97 12/26/18 00:00 98.7 101 18 93/53 (66) 17 12/25/18 23:24 98.3 12/25/18 23:00 Room Air 12/25/18 21:55 97 20 94 Room Air 21 12/25/18 20:00 98.3 97 18 88/52 (64) 95 12/25/18 16:00 98.5 100 19 92/53 (66) 93 Intake and Output 12/25/18 12/26/18 18:59 06:59 Intake Total 900 ml 550 ml Output Total 0 ml Balance 900 ml 550 ml Intake Oral 500 ml 350 ml IV Total 400 ml 200 ml Output Urine Total 0 ml General Appearance: WD/WN, no acute distress HEENT: normocephalic, atraumatic Respiratory/Chest: chest wall non-tender, lungs clear Breasts: no masses Cardiovascular: normal rate Abdomen: soft, non tender Genitourinary: normal external genitalia Laboratory Tests 12/26/18 05:10: White Blood Count 4.7L, Red Blood Count 2.46L, Hemoglobin 7.7L, Hematocrit 23.5L , Mean Corpuscular Volume 96, Mean Corpuscular Hemoglobin 31.4H, Mean Corpuscular Hemoglobin Concent 32.8, Red Cell Distribution Width 14.7, Platelet Count 177, Mean Platelet Volume 4.3L, Neutrophils (%) (Auto) , Lymphocytes (%) ( Auto) , Monocytes (%) (Auto) , Eosinophils (%) (Auto) , Basophils (%) (Auto) , Differential Total Cells Counted 100, Neutrophils % (Manual) 64, Lymphocytes % ( Manual) 20, Monocytes % (Manual) 11H, Eosinophils % (Manual) 1, Basophils % ( Manual) 0, Metamyelocytes % 1H, Myelocytes % 3H, Band Neutrophils 0, Platelet Estimate Adequate, Platelet Morphology Normal, Anisocytosis 1+, Sodium Level 135L, Potassium Level 5.7H, Chloride Level 99, Carbon Dioxide Level 24, Anion Gap 12, Blood Urea Nitrogen 74H, Creatinine 8.8H, Estimat Glomerular Filtration Rate 4.5, Glucose Level 95, Calcium Level 8.3L Current Medications Medications (Trade) Dose Ordered Sig/Basil Route PRN Reason Start Time Stop Time Status Last Admin Dose Admin Acetaminophen (Tylenol) 650 mg Q4H PRN ORAL Mild Pain (Pain Scale 1-3) 12/22/18 07:00 01/21/19 06:59 Acetaminophen/ Hydrocodone Bitart ([place] 10/325) 1 tab Q6H PRN ORAL For Pain 12/21/18 08:45 12/28/18 08:44 12/26/18 08:22 Albuterol/ Ipratropium (Albuterol/ Ipratropium) 3 ml Q6H PRN HHN dyspnea 12/23/18 10:51 12/28/18 10:50 Alprazolam (Xanax) 0.25 mg Q12H PRN ORAL PRN Agitation/Anxiety 12/25/18 11:30 01/01/19 11:29 Apixaban (Eliquis) 2.5 mg Q12HR ORAL 12/22/18 21:00 01/21/19 20:59 12/26/18 08:22 Bisacodyl (Dulcolax) 10 mg Q12H PRN RECTAL Constipation 12/22/18 07:00 01/21/19 06:59 Clonidine HCl (Catapres Tab) 0.1 mg Q4H PRN ORAL For SBP > 160 12/19/18 14:45 01/18/19 14:44 Dextrose (Dextrose 50%) STAT PRN IV Hypoglycemia 12/19/18 14:45 01/18/19 14:44 Dextrose (Dextrose 50%) STAT PRN IV Hypoglycemia 12/19/18 14:45 01/18/19 14:44 Dextrose/Sodium Chloride 1,000 ml @ 50 mls/hr Q20H IV 12/22/18 00:00 01/21/19 00:00 12/25/18 15:03 Docusate Sodium (Colace) 100 mg THREE TIMES A DAY ORAL 12/22/18 09:00 01/21/19 08:59 12/24/18 08:53 Epoetin Syd (Epoetin Syd(ESRD on dialysis)) 10,000 unit WED-WED-WED SUBQ 12/21/18 21:00 01/20/19 20:59 12/23/18 20:41 Escitalopram Oxalate (Lexapro) 10 mg DAILY ORAL 12/20/18 09:00 01/19/19 08:59 12/26/18 08:22 Guaifenesin/ Dextromethorphan (Robitussin DM Syrup) 10 ml Q4H PRN ORAL For Cough 12/23/18 10:51 01/22/19 10:50 12/26/18 10:17 Hydromorphone HCl (Dilaudid) 1 mg Q4H PRN SUBQ Mild Pain (Pain Scale 1-3) 12/22/18 07:00 12/29/18 06:59 Hydromorphone HCl (Dilaudid) 2 mg Q4H PRN SUBQ Moderate Pain (Pain Scale 4-6) 12/22/18 07:00 12/29/18 06:59 Insulin Aspart (NovoLOG) BEFORE MEALS AND HS SUBQ 12/19/18 21:00 01/18/19 20:59 12/25/18 16:39 Iopamidol (Isovue-300 100ml) 100 ml NOW PRN INJ Radiology Procedure 12/19/18 13:15 Levothyroxine Sodium (Synthroid) 50 mcg ACBREAKFAST ORAL 12/20/18 06:30 01/19/19 06:29 12/26/18 06:05 Magnesium Hydroxide (Mom) 30 ml DAILYPRN PRN ORAL Constipation 12/22/18 07:00 01/21/19 06:59 Midodrine (Pro-Amatine) 10 mg BID ORAL 12/19/18 18:00 01/18/19 17:59 12/26/18 08:22 Olanzapine (ZyPREXA) 5 mg BEDTIME ORAL 12/21/18 21:00 01/18/19 20:59 12/22/18 20:39 Ondansetron HCl (Zofran) 4 mg Q6H PRN IVP Nausea & Vomiting 12/19/18 14:45 01/18/19 14:44 Pantoprazole (Protonix) 40 mg DAILY ORAL 12/22/18 09:00 01/21/19 08:59 12/26/18 08:22 Polyethylene Glycol (Miralax) 17 gm HSPRN PRN ORAL Constipation 12/22/18 07:15 01/18/19 14:44 Risperidone (RisperDAL) 6 mg BEDTIME ORAL 12/19/18 21:00 01/18/19 20:59 12/25/18 20:05 Sevelamer Carbonate (Renvela) 800 mg THREE TIMES A DAY ORAL 12/19/18 18:00 01/18/19 17:59 12/26/18 08:23 Zolpidem Tartrate (Ambien) 5 mg HSPRN PRN ORAL Insomnia 12/19/18 14:45 12/26/18 14:44 12/21/18 20:37 Sarah Renee MD Dec 26, 2018 12:11
[2018-12-26 16:00] VITALS: BP 115/71
--- NOTE | 2018-12-26 16:10 | NUR ---
NURSE NOTES: patient temperature 100F @1600. RN encourage the patient to use IS. patient refused to do IS at this time, and said "I have done enough today". RN explained the importance of breathing exercise after surgery. patient said would try later.
--- NOTE | 2018-12-26 17:41 | NUR ---
NURSE NOTES: blood sugar 116@1630. patient refused to get insulin. RN explain
--- NOTE | 2018-12-26 19:26 | NUR ---
HAND-OFF: Report given to REJI Morales.
--- NOTE | 2018-12-26 19:36 | Cardiology Progress Note ---
Assessment/Plan Assessment/Plan 1. Non-syncopal fall. 2. Hip fracture. 3. History of tobacco use disorder. 4. Anemia. 5. Diabetes mellitus with end-organ damage. 6. End-stage renal disease, on hemodialysis. 7. History of bipolar disorder. 8. History of hypothyroidism s/p prbc tx bp better tolerted surgery adn dialysis today hoem soon Subjective Cardiovascular: Denies: chest pain, lightheadedness, palpitations Respiratory: Denies: shortness of breath Gastrointestinal/Abdominal: Denies: abdominal pain Genitourinary: Denies: burning Objective Last 24 Hour Vital Signs Date Time Temp Pulse Resp B/P (MAP) Pulse Ox O2 Delivery O2 Flow Rate FiO2 12/26/18 16:00 100.0 108 19 115/71 (86) 94 12/26/18 12:00 98.0 108 19 91/55 (67) 92 12/26/18 09:00 Room Air 12/26/18 08:00 98.8 105 19 93/56 (68) 97 12/26/18 07:25 98 20 96 Room Air 21 12/26/18 04:00 98.9 103 19 97/55 (69) 97 12/26/18 00:00 98.7 101 18 93/53 (66) 17 12/25/18 23:24 98.3 12/25/18 23:00 Room Air 12/25/18 21:55 97 20 94 Room Air 21 12/25/18 20:00 98.3 97 18 88/52 (64) 95 General Appearance: no apparent distress, alert Neck: supple Cardiovascular: normal rate, regular rhythm Respiratory/Chest: lungs clear Abdomen: normal bowel sounds, non tender, soft Extremities: no swelling - pneumatic stocking in place Intake and Output 12/25/18 12/26/18 19:00 07:00 Intake Total 900 ml 750 ml Output Total 0 ml Balance 900 ml 750 ml Intake Oral 500 ml 350 ml IV Total 400 ml 400 ml Output Urine Total 0 ml Laboratory Tests Test 12/26/18 05:10 White Blood Count 4.7 K/UL (4.8-10.8) L Red Blood Count 2.46 M/UL (4.20-5.40) L Hemoglobin 7.7 G/DL (12.0-16.0) L Hematocrit 23.5 % (37.0-47.0) L Mean Corpuscular Volume 96 FL (80-99) Mean Corpuscular Hemoglobin 31.4 PG (27.0-31.0) H Mean Corpuscular Hemoglobin Concent 32.8 G/DL (32.0-36.0) Red Cell Distribution Width 14.7 % (11.6-14.8) Platelet Count 177 K/UL (150-450) Mean Platelet Volume 4.3 FL (6.5-10.1) L Neutrophils (%) (Auto) % (45.0-75.0) Lymphocytes (%) (Auto) % (20.0-45.0) Monocytes (%) (Auto) % (1.0-10.0) Eosinophils (%) (Auto) % (0.0-3.0) Basophils (%) (Auto) % (0.0-2.0) Differential Total Cells Counted 100 Neutrophils % (Manual) 64 % (45-75) Lymphocytes % (Manual) 20 % (20-45) Monocytes % (Manual) 11 % (1-10) H Eosinophils % (Manual) 1 % (0-3) Basophils % (Manual) 0 % (0-2) Metamyelocytes % 1 % (0-0) H Myelocytes % 3 % (0-0) H Band Neutrophils 0 % (0-8) Platelet Estimate Adequate Platelet Morphology Normal Anisocytosis 1+ Sodium Level 135 MMOL/L (136-145) L Potassium Level 5.7 MMOL/L (3.5-5.1) H Chloride Level 99 MMOL/L (98-107) Carbon Dioxide Level 24 MMOL/L (21-32) Anion Gap 12 mmol/L (5-15) Blood Urea Nitrogen 74 mg/dL (7-18) H Creatinine 8.8 MG/DL (0.55-1.30) H Estimat Glomerular Filtration Rate 4.5 mL/min (>60) Glucose Level 95 MG/DL (74-106) Calcium Level 8.3 MG/DL (8.5-10.1) L Harvinder Cuba MD Dec 26, 2018 19:36
--- NOTE | 2018-12-26 19:50 | NUR ---
CASE MANAGEMENT: REVIEW SI: S/P FALL . ESRD ON HD . ACUTE HEAD INJURY . LEFT HIP FRACTURE LEFT HIP ORIF 12/22 T 100.0 HR 108 RR 19 BP 91/55 SAT 92% ROOM AIR WBC 4.7 H/H 7.7/23.5 NA 135 K 5.7 IS: D5 1/2 NS IVF@50ML/HR COLACE PO BID MIDODRINE PO BID EPOETIN SUBQ MWF HEPARIN SUBQ Q12HR HD PRN S/P PRBC H/H 6.7/20.8 MED/SURG STATUS DCP: PATIENT IS FROM [facility]
[2018-12-26 20:00] VITALS: BP 112/69
[2018-12-26] MEDS: Epoetin Alfa-EPBX(ESRD on dialysis)10,000 unit/ml vial SUBQ SCH (21:08)
[2018-12-26] MEDS: D5 1/2NS 1,000 ML IV SCH (23:56)
[2018-12-27] VITALS: BP 134/78
[2018-12-27 04:00] VITALS: BP 130/78
[2018-12-27] MEDS: HYDROcodone/Acetamin 10/325 tab ORAL PRN ×2 (05:59→12:10)
[2018-12-27] MEDS: NovoLOG Insulin Flexpen SUBQ SCH ×2 (05:59→12:07)
--- NOTE | 2018-12-27 07:00 | NUR ---
HAND-OFF: Report given to Jesu Trevino
[2018-12-27 08:00] VITALS: BP 133/80
--- NOTE | 2018-12-27 08:08 | NUR ---
NURSE NOTES: received report from REJI Morales. patient in bed. alert. oriented. verbally responsive. no respiratory distress noted. c/o pain on lt hip. encouraged to use IS during awake. AV shun on left upper arm for HD no bleeding. F/C intact. no urine output. patient ESRD. bed in the lowest position. call light within reach. will continue to provide plan of care.
[2018-12-27] MEDS: Midodrine 10mg tab ORAL SCH (09:00)
[2018-12-27] MEDS: Eliquis 2.5mg tablet ORAL SCH (09:00)
[2018-12-27] MEDS: Renvela 800mg Pkt ORAL SCH ×2 (09:00→12:10)
[2018-12-27] MEDS: Docusate 100mg cap ORAL SCH ×2 (09:00→12:11)
--- NOTE | 2018-12-27 11:57 | NUR ---
RD ASSESSMENT & RECOMMENDATIONS SEE CARE ACTIVITY FOR COMPLETE ASSESSMENT DAILY ESTIMATED NEEDS: Needs based on ESRD on HD, wound 59.5kg 30-35 kcals/kg 6213-4874 total kcals 1.25-1.8 g protein/kg 74-107 g total protein Fluid per MD, on HD NUTRITION DIAGNOSIS: Increased KCAL and protein needs R/T renal dysfunction, ESRD and wound healing as evidenced by pt w/ ESRD on HD, w/ sacral and R toe partial thickness wound, now s/p L hip ORIF. (UPDATED) PO DIET RECOMMENDATIONS: RENAL ADDITIONAL RECOMMENDATIONS: 1) Obtain a calibrated bed scale wt as able 2) Add NEPRO 1 tetra jm daily Add snacks in b/w meals 3) Wound care: add CLAIRE BID + Nephrovite daily
[2018-12-27 12:00] VITALS: BP 128/77
--- NOTE | 2018-12-27 12:50 | Pulmonology Progress Note ---
Assessment/Plan Problems: (1) Hip fracture (2) ESRD (end stage renal disease) on dialysis (3) HTN (hypertension) (4) Hypothyroidism (5) Severe anemia (6) Diabetes Assessment/Plan no new complains difficult to do pt/ot HD by nephrology monitor BP sliding scale diabetic diet dc planning Subjective ROS Limited/Unobtainable: No Constitutional: Reports: no symptoms HEENT: Repors: no symptoms Allergies: Coded Allergies: CODEINE (Verified Allergy, Unknown, 10/07/15) ERYTHROMYCIN BASE (Verified Allergy, Unknown, 10/07/15) Objective Last 24 Hour Vital Signs Date Time Temp Pulse Resp B/P (MAP) Pulse Ox O2 Delivery O2 Flow Rate FiO2 12/27/18 09:00 Room Air 12/27/18 08:00 98.8 90 18 133/80 (97) 99 12/27/18 06:29 99.0 12/27/18 04:00 98.8 88 18 130/78 (95) 98 12/27/18 00:00 99.0 107 19 134/78 (96) 98 12/26/18 21:48 Room Air 12/26/18 20:00 102 20 95 Room Air 21 12/26/18 20:00 99.3 109 19 112/69 (83) 95 12/26/18 16:00 100.0 108 19 115/71 (86) 94 Intake and Output 12/26/18 12/27/18 19:00 07:00 Intake Total 1030 ml 1130 ml Output Total 1500 ml 0 ml Balance -470 ml 1130 ml Intake Oral 480 ml 780 ml IV Total 550 ml 350 ml Output Urine Total 0 ml 0 ml Hemodialysis UF 1500 ml General Appearance: WD/WN HEENT: normocephalic, anicteric Respiratory/Chest: chest wall non-tender, lungs clear Breasts: no masses Cardiovascular: normal rate, no JVD Abdomen: soft, non tender Genitourinary: normal external genitalia Skin: no rash Current Medications Medications (Trade) Dose Ordered Sig/Basil Route PRN Reason Start Time Stop Time Status Last Admin Dose Admin Acetaminophen (Tylenol) 650 mg Q4H PRN ORAL Mild Pain (Pain Scale 1-3) 12/22/18 07:00 01/21/19 06:59 Acetaminophen/ Hydrocodone Bitart ([place] 10/325) 1 tab Q6H PRN ORAL For Pain 12/21/18 08:45 12/28/18 08:44 12/27/18 12:10 Albuterol/ Ipratropium (Albuterol/ Ipratropium) 3 ml Q6H PRN HHN dyspnea 12/23/18 10:51 12/28/18 10:50 Alprazolam (Xanax) 0.25 mg Q12H PRN ORAL PRN Agitation/Anxiety 12/25/18 11:30 01/01/19 11:29 Apixaban (Eliquis) 2.5 mg Q12HR ORAL 12/22/18 21:00 01/21/19 20:59 12/27/18 09:00 Bisacodyl (Dulcolax) 10 mg Q12H PRN RECTAL Constipation 12/22/18 07:00 01/21/19 06:59 Clonidine HCl (Catapres Tab) 0.1 mg Q4H PRN ORAL For SBP > 160 12/19/18 14:45 01/18/19 14:44 Dextrose (Dextrose 50%) STAT PRN IV Hypoglycemia 12/19/18 14:45 01/18/19 14:44 Dextrose (Dextrose 50%) STAT PRN IV Hypoglycemia 12/19/18 14:45 01/18/19 14:44 Dextrose/Sodium Chloride 1,000 ml @ 50 mls/hr Q20H IV 12/22/18 00:00 01/21/19 00:00 12/26/18 23:56 Docusate Sodium (Colace) 100 mg THREE TIMES A DAY ORAL 12/22/18 09:00 01/21/19 08:59 12/24/18 08:53 Epoetin Syd (Epoetin Syd(ESRD on dialysis)) 10,000 unit WED-WED-WED SUBQ 12/21/18 21:00 01/20/19 20:59 12/26/18 21:08 Escitalopram Oxalate (Lexapro) 10 mg DAILY ORAL 12/20/18 09:00 01/19/19 08:59 12/27/18 09:00 Guaifenesin/ Dextromethorphan (Robitussin DM Syrup) 10 ml Q4H PRN ORAL For Cough 12/23/18 10:51 01/22/19 10:50 12/26/18 10:17 Hydromorphone HCl (Dilaudid) 1 mg Q4H PRN SUBQ Mild Pain (Pain Scale 1-3) 12/22/18 07:00 12/29/18 06:59 Hydromorphone HCl (Dilaudid) 2 mg Q4H PRN SUBQ Moderate Pain (Pain Scale 4-6) 12/22/18 07:00 12/29/18 06:59 Insulin Aspart (NovoLOG) BEFORE MEALS AND HS SUBQ 12/19/18 21:00 01/18/19 20:59 12/27/18 12:07 Iopamidol (Isovue-300 100ml) 100 ml NOW PRN INJ Radiology Procedure 12/19/18 13:15 Levothyroxine Sodium (Synthroid) 50 mcg ACBREAKFAST ORAL 12/20/18 06:30 01/19/19 06:29 12/27/18 05:59 Magnesium Hydroxide (Mom) 30 ml DAILYPRN PRN ORAL Constipation 12/22/18 07:00 01/21/19 06:59 Midodrine (Pro-Amatine) 10 mg BID ORAL 12/19/18 18:00 01/18/19 17:59 12/27/18 09:00 Olanzapine (ZyPREXA) 5 mg BEDTIME ORAL 12/21/18 21:00 01/18/19 20:59 12/22/18 20:39 Ondansetron HCl (Zofran) 4 mg Q6H PRN IVP Nausea & Vomiting 12/19/18 14:45 01/18/19 14:44 Pantoprazole (Protonix) 40 mg DAILY ORAL 12/22/18 09:00 01/21/19 08:59 12/27/18 09:00 Polyethylene Glycol (Miralax) 17 gm HSPRN PRN ORAL Constipation 12/22/18 07:15 01/18/19 14:44 Risperidone (RisperDAL) 6 mg BEDTIME ORAL 12/19/18 21:00 01/18/19 20:59 12/26/18 21:04 Sevelamer Carbonate (Renvela) 800 mg THREE TIMES A DAY ORAL 12/19/18 18:00 01/18/19 17:59 12/27/18 12:10 Sarah Renee MD Dec 27, 2018 12:50
--- NOTE | 2018-12-27 14:20 | NUR ---
NURSE NOTES: patient has Dc order back to [facility]. PT nita recommended dc to SNF for PT. notified charge nurse, sheri for further order. charge nurse will contact with Dr. Renee.
--- NOTE | 2018-12-27 14:26 | NUR ---
NURSE NOTES: given report to [facility]. spoke to benson. Notified discharge to [facility] and whit.
--- NOTE | 2018-12-27 14:27 | Cardiology Progress Note ---
Assessment/Plan Assessment/Plan 1. Non-syncopal fall. 2. Hip fracture. 3. History of tobacco use disorder. 4. Anemia. 5. Diabetes mellitus with end-organ damage. 6. End-stage renal disease, on hemodialysis. 7. History of bipolar disorder. 8. History of hypothyroidism bp better now inte 120-130s tolerted surgery adn dialysis post home or rehab soon Subjective Cardiovascular: Denies: chest pain, lightheadedness, palpitations Respiratory: Denies: shortness of breath Gastrointestinal/Abdominal: Denies: abdominal pain Genitourinary: Denies: burning Objective Last 24 Hour Vital Signs Date Time Temp Pulse Resp B/P (MAP) Pulse Ox O2 Delivery O2 Flow Rate FiO2 12/27/18 12:00 98.4 84 18 128/77 (94) 98 12/27/18 09:00 Room Air 12/27/18 08:00 98.8 90 18 133/80 (97) 99 12/27/18 06:29 99.0 12/27/18 04:00 98.8 88 18 130/78 (95) 98 12/27/18 00:00 99.0 107 19 134/78 (96) 98 12/26/18 21:48 Room Air 12/26/18 20:00 102 20 95 Room Air 21 12/26/18 20:00 99.3 109 19 112/69 (83) 95 12/26/18 16:00 100.0 108 19 115/71 (86) 94 General Appearance: no apparent distress, alert Neck: supple Cardiovascular: normal rate Respiratory/Chest: lungs clear Abdomen: normal bowel sounds, non tender, soft Extremities: no swelling Intake and Output 12/26/18 12/27/18 19:00 07:00 Intake Total 1030 ml 1130 ml Output Total 1500 ml 0 ml Balance -470 ml 1130 ml Intake Oral 480 ml 780 ml IV Total 550 ml 350 ml Output Urine Total 0 ml 0 ml Hemodialysis UF 1500 ml Harvinder Cuba MD Dec 27, 2018 14:27
--- NOTE | 2018-12-27 14:56 | NUR ---
CHARGE NURSE NOTE: Pt will be discharged to [facility] assistive living facility. Spoke with Judson AMAYA. He recommends SNF, pt needs a lot of assistance. Dr. Renee notified. No change in discharge order.
--- NOTE | 2018-12-27 15:07 | Nephrology Progress Note ---
Assessment/Plan Assessment 1. End-stage renal disease. 2. Anemia of chronic kidney disease. 3. Renal osteodystrophy. 4. Status post fall. 5. Possible left hip pain versus fracture. Plan dialysis as schedule pain management monitoring phos,pth continue epogen pain management Subjective Genitourinary: Reports: no symptoms Neurologic/Psychiatric: Reports: no symptoms Subjective alert and awake denies any problem Objective Objective Last 24 Hour Vital Signs Date Time Temp Pulse Resp B/P (MAP) Pulse Ox O2 Delivery O2 Flow Rate FiO2 12/27/18 14:55 87 16 95 Room Air 21 12/27/18 12:00 98.4 84 18 128/77 (94) 98 12/27/18 09:00 Room Air 12/27/18 08:00 98.8 90 18 133/80 (97) 99 12/27/18 06:29 99.0 12/27/18 04:00 98.8 88 18 130/78 (95) 98 12/27/18 00:00 99.0 107 19 134/78 (96) 98 12/26/18 21:48 Room Air 12/26/18 20:00 102 20 95 Room Air 21 12/26/18 20:00 99.3 109 19 112/69 (83) 95 12/26/18 16:00 100.0 108 19 115/71 (86) 94 Intake and Output 12/26/18 12/27/18 19:00 07:00 Intake Total 1030 ml 1130 ml Output Total 1500 ml 0 ml Balance -470 ml 1130 ml Intake Oral 480 ml 780 ml IV Total 550 ml 350 ml Output Urine Total 0 ml 0 ml Hemodialysis UF 1500 ml Height (Feet): 5 Height (Inches): 7.00 Weight (Pounds): 150 Objective HEAD AND NECK: No JVP. No LAD. No thyromegaly. Extraocular movements intact. Pupils are reactive to light and accommodation. LUNGS: Clear to auscultation. CARDIAC: Regular rate and rhythm. S1, S2. No murmur. No rub. ABDOMEN: Soft. Bowel sounds positive. EXTREMITIES: No edema. No clubbing. No cyanosis. Gwen Mccray MD Dec 27, 2018 15:07
[2018-12-27] MEDS ORDERED: D5 1/2NS 1000ml IV ONE (15:14)
--- NOTE | 2018-12-27 15:42 | Consultation ---
History of Present Illness General Date patient seen: Dec 27, 2018 Reason for Hospitalization: Multiple Trauma/Fall Present Illness HPI This is a very pleasant 68-year-old female [facility] resident who was admitted with a mechanical fall to [facility] after evaluation. Patient was noted to fall after a walker got stuck in the carpet and she tripped. She had immediate left hip pain and on imaging identified to have a comminuted intertrochanteric fracture of the left hip. She was admitted for care and management and orthopedic surgery evaluation. Since she has been doing well in recovery after recent hip surgery. She was identified to have deep tissue pressure injury which is now opened. Surgery called to evaluate and assist with care. Patient seen, patient evaluated, chart reviewed Allergies: Coded Allergies: CODEINE (Verified Allergy, Unknown, 10/07/15) ERYTHROMYCIN BASE (Verified Allergy, Unknown, 10/07/15) Medication History Scheduled Apixaban (Eliquis), 2.5 MG PO EVERY 12 HOURS Brimonidine Tartrate* (Alphagan*), 1 DROP BOTH EYES DAILY, (Reported) Escitalopram Oxalate* (Lexapro*), 10 MG ORAL DAILY, (Reported) Folic Acid/Vitamin B Comp W-C (Full Spectrum B With Vit C Tab), 0.8 MG PO DAILY, (Reported) Lamotrigine* (Lamictal*), 25 MG ORAL DAILY, (Reported) Levothyroxine Sodium (Synthroid), 50 MCG ORAL DAILY, (Reported) Midodrine* (Proamatine*), 10 MG ORAL BID, (Reported) Omeprazole (Omeprazole), 20 MG ORAL DAILY, (Reported) Pregabalin* (Lyrica*), 75 MG ORAL THREE TIMES A DAY, (Reported) Promethazine Hcl (Promethazine Hcl*), 5 ML ORAL Q6H, (Reported) Risperidone* (Risperdal*), 6 MG PO HS, (Reported) Sevelamer Carbonate (Renvela), 800 MG ORAL THREE TIMES A DAY, (Reported) [BitoinB-complex], 5,000 MG ORAL DAILY, (Reported) Scheduled PRN Alprazolam* (Xanax*), 0.25 MG ORAL BID PRN for PRN Agitation/Anxiety, (Reported) Tramadol Hcl* (Ultram*), 50 MG ORAL BID PRN for For Pain, (Reported) Miscellaneous Medications Insulin Aspart (Novolog Flexpen), (Reported) Discontinued Medications Aspirin* (Aspir 81*), 81 MG ORAL DAILY, (Reported) Discontinued Reason: Therapy completed Atorvastatin Calcium* (Atorvastatin Calcium*), 40 MG ORAL BEDTIME, (Reported) Discontinued Reason: Therapy completed Cefdinir (Cefdinir), 300 MG PO QOD Discontinued Reason: Therapy completed Cephalexin* (Keflex*), 250 MG ORAL EVERY 12 HOURS Discontinued Reason: Therapy completed Docusate Sodium (Stool Softener), 100 MG PO BID, (Reported) Discontinued Reason: Therapy completed Moxifloxacin HCl (Vigamox), 1 DROP LEFT EYE FOUR TIMES A DAY, (Reported) Discontinued Reason: Therapy completed Olanzapine (Olanzapine), 5 MG ORAL BEDTIME Discontinued Reason: Therapy completed Sevelamer Carbonate* (Renvela*), 800 MG ORAL THREE TIMES A DAY, (Reported) Discontinued Reason: Prescription changed Patient History History Provided By: Patient, Medical Record, PMD Healthcare decision maker SELF Resuscitation status Full Code Advanced Directive on File No Past Medical/Surgical History Past Medical/Surgical History: (1) UTI (urinary tract infection) (2) Hip pain (3) Hip fracture (4) Severe anemia (5) Hypotension (6) Pressure injury of buttock, unstageable (7) Abnormal laboratory test result (8) Diabetes (9) Myocardial infarct, old (10) Acute head injury (11) Hypothyroidism (12) DVT (deep venous thrombosis) (13) HTN (hypertension) (14) ESRD (end stage renal disease) on dialysis Review of Systems Review of Symptoms General ROS: no weight loss or fever Psychological ROS: no depression or mood changes, no memory loss Ophthalmic ROS: no visual changes or eye irritation ENT ROS: no nasal congestion, hearing loss, dizziness Allergy and Immunology ROS: no allergic symptoms or urticaria Hematological and Lymphatic ROS: no swollen glands, unusual bleeding or bruising Endocrine ROS: no polyuria, polydipsia, weight changes, temperature intolerance Respiratory ROS: no cough, shortness of breath, or wheezing Cardiovascular ROS: no chest pain or dyspnea on exertion Gastrointestinal ROS: denies abdominal pain, no bright red blood in stool. Musculoskeletal ROS: no myalgias or arthralgias Neurological ROS: no TIA or stroke symptoms Dermatological ROS: no new or changing skin lesions, rashes or pruritis Physical Exam Physical Exam General appearance: alert, cooperative, no distress, appears stated age Head: Normocephalic, without obvious abnormality, atraumatic Eyes: conjunctivae/corneas clear. PERRL, EOM's intact. Fundi benign Throat: Lips, mucosa, and tongue normal. Teeth and gums normal Neck: supple, symmetrical, trachea midline, no adenopathy, thyroid: not enlarged, symmetric, no tenderness/mass/nodules, no carotid bruit and no JVD Lungs: clear to auscultation bilaterally Heart: regular rate and rhythm, S1, S2 normal, no murmur, click, rub or gallop Abdomen: soft, non-tender. Bowel sounds normal. No masses, no organomegaly Extremities: extremities normal, atraumatic, no cyanosis or edema Pulses: 2+ and symmetric Skin: Skin color, texture, turgor normal. No rashes or lesions Neurologic: Grossly normal Last 24 Hour Vital Signs Date Time Temp Pulse Resp B/P (MAP) Pulse Ox O2 Delivery O2 Flow Rate FiO2 12/27/18 14:55 87 16 95 Room Air 21 12/27/18 12:00 98.4 84 18 128/77 (94) 98 12/27/18 09:00 Room Air 12/27/18 08:00 98.8 90 18 133/80 (97) 99 12/27/18 06:29 99.0 12/27/18 04:00 98.8 88 18 130/78 (95) 98 12/27/18 00:00 99.0 107 19 134/78 (96) 98 12/26/18 21:48 Room Air 12/26/18 20:00 102 20 95 Room Air 21 12/26/18 20:00 99.3 109 19 112/69 (83) 95 12/26/18 16:00 100.0 108 19 115/71 (86) 94 Intake and Output 12/26/18 12/27/18 18:59 06:59 Intake Total 1230 ml 1080 ml Output Total 1500 ml 0 ml Balance -270 ml 1080 ml Intake Oral 480 ml 780 ml IV Total 750 ml 300 ml Output Urine Total 0 ml 0 ml Hemodialysis UF 1500 ml Height (Feet): 5 Height (Inches): 7.00 Weight (Pounds): 150 Medications Current Medications Medications (Trade) Dose Ordered Sig/Basil Route PRN Reason Start Time Stop Time Status Last Admin Dose Admin Acetaminophen (Tylenol) 650 mg Q4H PRN ORAL Mild Pain (Pain Scale 1-3) 12/22/18 07:00 01/21/19 06:59 Acetaminophen/ Hydrocodone Bitart ([place] 10/325) 1 tab Q6H PRN ORAL For Pain 12/21/18 08:45 12/28/18 08:44 12/27/18 12:10 Albuterol/ Ipratropium (Albuterol/ Ipratropium) 3 ml Q6H PRN HHN dyspnea 12/23/18 10:51 12/28/18 10:50 Alprazolam (Xanax) 0.25 mg Q12H PRN ORAL PRN Agitation/Anxiety 12/25/18 11:30 01/01/19 11:29 Apixaban (Eliquis) 2.5 mg Q12HR ORAL 12/22/18 21:00 01/21/19 20:59 12/27/18 09:00 Bisacodyl (Dulcolax) 10 mg Q12H PRN RECTAL Constipation 12/22/18 07:00 01/21/19 06:59 Clonidine HCl (Catapres Tab) 0.1 mg Q4H PRN ORAL For SBP > 160 12/19/18 14:45 01/18/19 14:44 Dextrose (Dextrose 50%) STAT PRN IV Hypoglycemia 12/19/18 14:45 01/18/19 14:44 Dextrose (Dextrose 50%) STAT PRN IV Hypoglycemia 12/19/18 14:45 01/18/19 14:44 Dextrose/Sodium Chloride 1,000 ml @ 50 mls/hr Q20H IV 12/22/18 00:00 01/21/19 00:00 12/26/18 23:56 Docusate Sodium (Colace) 100 mg THREE TIMES A DAY ORAL 12/22/18 09:00 01/21/19 08:59 12/24/18 08:53 Epoetin Syd (Epoetin Syd(ESRD on dialysis)) 10,000 unit WED-WED-WED SUBQ 12/21/18 21:00 01/20/19 20:59 12/26/18 21:08 Escitalopram Oxalate (Lexapro) 10 mg DAILY ORAL 12/20/18 09:00 01/19/19 08:59 12/27/18 09:00 Guaifenesin/ Dextromethorphan (Robitussin DM Syrup) 10 ml Q4H PRN ORAL For Cough 12/23/18 10:51 01/22/19 10:50 12/26/18 10:17 Hydromorphone HCl (Dilaudid) 1 mg Q4H PRN SUBQ Mild Pain (Pain Scale 1-3) 12/22/18 07:00 12/29/18 06:59 Hydromorphone HCl (Dilaudid) 2 mg Q4H PRN SUBQ Moderate Pain (Pain Scale 4-6) 12/22/18 07:00 12/29/18 06:59 Insulin Aspart (NovoLOG) BEFORE MEALS AND HS SUBQ 12/19/18 21:00 01/18/19 20:59 12/27/18 12:07 Iopamidol (Isovue-300 100ml) 100 ml NOW PRN INJ Radiology Procedure 12/19/18 13:15 Levothyroxine Sodium (Synthroid) 50 mcg ACBREAKFAST ORAL 12/20/18 06:30 01/19/19 06:29 12/27/18 05:59 Magnesium Hydroxide (Mom) 30 ml DAILYPRN PRN ORAL Constipation 12/22/18 07:00 01/21/19 06:59 Midodrine (Pro-Amatine) 10 mg BID ORAL 12/19/18 18:00 01/18/19 17:59 12/27/18 09:00 Olanzapine (ZyPREXA) 5 mg BEDTIME ORAL 12/21/18 21:00 01/18/19 20:59 12/22/18 20:39 Ondansetron HCl (Zofran) 4 mg Q6H PRN IVP Nausea & Vomiting 12/19/18 14:45 01/18/19 14:44 Pantoprazole (Protonix) 40 mg DAILY ORAL 12/22/18 09:00 01/21/19 08:59 12/27/18 09:00 Polyethylene Glycol (Miralax) 17 gm HSPRN PRN ORAL Constipation 12/22/18 07:15 01/18/19 14:44 Risperidone (RisperDAL) 6 mg BEDTIME ORAL 12/19/18 21:00 01/18/19 20:59 12/26/18 21:04 Sevelamer Carbonate (Renvela) 800 mg THREE TIMES A DAY ORAL 12/19/18 18:00 01/18/19 17:59 12/27/18 12:10 Assessment/Plan Problem List: (1) Pressure injury of buttock, unstageable ICD Codes: L89.300 - Pressure ulcer of unspecified buttock, unstageable SNOMED: [id number] (2) Decubitus skin ulcer Assessment & Plan: This is a 68-year-old female with left hip fracture status post left hip ORIF who has developed a deep tissue pressure injury that is now opened in the sacral region. Wash wound daily, apply skin protectant and foam dressing daily and prn Weightbearing as per orthopedic surgery. Turn every 2 hours Air soft mattress Offload pressure as tolerated Thank you will follow with recommendations ICD Codes: L89.90 - Pressure ulcer of unspecified site, unspecified stage SNOMED: [id number] Elias Liriano Dec 27, 2018 15:42
--- NOTE | 2018-12-27 15:50 | NUR ---
NURSE NOTES: patient discharged to [facility] assisted living by ambulance. no respiratory distress noted. dressing on lt hip post ORIF intact. no bleeding. no drainage noted. IV and ID band removed. checked and counted belongings with patient and obtained sign. provide dc packet and obtained sign. informed patient needs f/u with dr. feliz in 2weeks. sacral area pressure injury DTI picture taken and uploaded. dc f/c.
--- NOTE | 2018-12-28 11:00 | Discharge Summary ---
Discharge Summary Discharge Summary _ DATE OF ADMISSION: 12/19/2018 DATE OF DISCHARGE: 12/27/2018 DISCHARGED BY: Dr. Renee REASON FOR ADMISSION: 68 years old female with past medical history of end-stage renal disease, on hemodialysis, anemia of chronic kidney disease, hypertension, renal osteodystrophy, presented status post fall at the [id number] while walking with walker. Patient complained of left hip pain. She denied loss of consciousness or dizziness. She denied nausea , vomiting , and headache. Patient reported multiple bruises on the right forearm, edema of right foot and left knee. Upon evaluation x-ray of the left hip revealed comminuted intertrochanteric fracture of the left hip. CT of the head revealed no acute intracranial pathology. X-ray of the right forearm was negative for acute injury. X-ray of the right foot revealed renal osteodystrophy. Chest x-ray demonstrated no acute cardiopulmonary pathology. CT of the abdomen and pelvis revealed markedly distended urinary bladder with mild associated hydronephrosis. Atrophic kidney. Innumerable cysts. Splenomegaly. Atherosclerotic vascular disease. Vital signs revealed hypotension with blood pressure 81/52. Laboratory work-up demonstrated no leukocytosis, hemoglobin 8 ,hematocrit 25.6 , platelet count 116 ,INR 1.1. BUN 50, creatinine 8.9, consistent with known history of end-stage renal disease. Albumin 3.2. Urine toxicology screen was negative. Serum alcohol level was negative. EKG revealed normal sinus rhythm , no acute ischemic changes . Patient received fluid challenge due to hypotension and admitted for further management. CONSULTANTS: pasteurizing supervisor Dr. [place] genetic physician [facility]. Mcc[facility]: Patient admitted to medical surgical floor. Orthopedic surgery consult was requested. Concrete Vault Maker was requested for clearance for surgery. Echocardiogram revealed preserved ejection fraction 55 to 60% with no evidence of left ventricular hypertrophy. No evidence of wall motion abnormality. Right ventricular systolic pressure of 22. Lipid panel was stable. EKG revealed normal sinus rhythm, no acute ischemic changes. Per pasteurizing supervisor , patient was cleared for surgery. Patient subsequently undergone open reduction internal fixation of left hip fracture on 12/22. Pain management was addressed. Wound care provided. Patient was working with physical therapist. Fall precaution maintained. Postoperative hip precautions were maintained. Hemodialysis provided as per genetic physician recommendations with close monitoring of renal parameters , electrolytes and volumes. Venous duplex of bilateral lower extremity revealed acute thrombus in the common femoral and greater saphenous vein junction of the right lower extremity. Patient started on anticoagulation with Eliquis, renally dosed. Follow-up chest x-ray on 12/23 revealed right-sided atelectasis. Incentive spirometry was encouraged while in the bed every 1 hours x 10. Supplemental oxygen titrated as needed to keep pulse oximetry above 90%. Bronchodilator treatment he was on board as needed. Antitussive provided as needed. Chest x-ray also reveal a left pulmonary nodule , evident on prior CT chest. Considering history of smoking, recommended to follow-up with CT chest in 6 months. Hemoglobin and hematocrit were closely monitored with goal to keep hemoglobin above 7. Patient undergone transfusion of total of 3 units units of packed red blood cells while in the hospital. Prior to discharge hemoglobin 7, hematocrit 23.5. Blood sugar was managed with sliding scale of insulin. Patient started on Epogen. Anemia work-up was consistent with anemia of chronic disease. High ferritin noted. CEA within normal limits. Stool OB was ordered , but not collected. Blood sugar was managed with sliding scale of insulin. TSH within normal limits. Current dose of levothyroxine was continued. Patient was counseled to continue abstinence from smoking /she quit 2 years ago. Supportive care provided. Pain management addressed. Bowel regimen instituted. Patient clinically stabilized and was ready for transfer to the assisted living. FINAL DIAGNOSES: Status post non-syncopal fall Left hip comminuted intertrochanteric/subtrochanteric fracture with complete fracture through the greater trochanter Status post open reduction internal fixation of left hip fracture Diabetes mellitus with end organ damage End-stage renal disease, on hemodialysis Hypothyroidism Anemia f chronic kidney disease, requiring blood transfusion History of tobacco use disorder Bipolar disorder DISCHARGE MEDICATIONS: See Medication Reconciliation list. DISCHARGE INSTRUCTIONS: Patient was discharged to [facility]. Follow up with medical doctor at the facility. Follow-up with orthopedic surgeon in 2 weeks. Susi Richter NP Dec 28, 2018 11:00
--- NOTE | 2018-12-28 16:57 | Cardiology Report ---
APPROVED REPORT EKG Measurement Heart [id number] Normal sinus rhythm Cannot rule out Anterior infarct, age undetermined Abnormal ECG
== END 2018-12-27 15:15 | disposition home or self-care (01) | DRG 480 ==
LOC: EMR 13:15 → EDBEDREQ 13:19 → 4E 13:39 → EDBEDREQ 16:51 → 4E 17:49
PROC: 5A1D70Z Performance of Urinary Filtration, Intermittent, Less than 6 Hours Per Day (ICD-10-PCS; principal; 2018-12-19)
PROC: 0QS704Z Reposition Left Upper Femur with Internal Fixation Device, Open Approach (ICD-10-PCS; 2018-12-22)
DX: S72.142A Displaced intertrochanteric fracture of left femur, initial encounter for closed fracture (principal); N18.6 End stage renal disease; I12.0 Hypertensive chronic kidney disease with stage 5 chronic kidney disease or end stage renal disease; I82.411 Acute embolism and thrombosis of right femoral vein; J98.11 Atelectasis; W01.10XA Fall on same level from slipping, tripping and stumbling with subsequent striking against unspecified object, initial encounter; Y92.9 Unspecified place or not applicable; E11.22 Type 2 diabetes mellitus with diabetic chronic kidney disease; Z99.2 Dependence on renal dialysis; S09.90XA Unspecified injury of head, initial encounter; I95.9 Hypotension, unspecified; D63.1 Anemia in chronic kidney disease; N25.0 Renal osteodystrophy; F31.9 Bipolar disorder, unspecified; L89.300 Pressure ulcer of unspecified buttock, unstageable; L89.150 Pressure ulcer of sacral region, unstageable; J44.9 Chronic obstructive pulmonary disease, unspecified; D69.6 Thrombocytopenia, unspecified; E03.9 Hypothyroidism, unspecified; R91.1 Solitary pulmonary nodule
CPT/HCPCS: 36415; 70450; 71045; 72170; 73502; 74177; 76000; 80048; 80053; 80061; 80329; 82378; 82607; 82728; 82746; 82962; 83036; 83540; 83550; 83690; 84100; 84443; 85007; 85025; 85610; 85730; 86706; 86850; 86900; 86901; 86920; 87081; 93005; 93306; 93970; 94003; 94150; 94664; 99285; J1815; J2250